=== PATIENT | female | born 1935 | race Caucasian/White ===

== ENCOUNTER → 2016-06-04 | Outpatient (CLI) | payer BC, OTHER ==
[~2016-06-04] MED LIST: AMLO2.5T PO; ASCO10003 PO; ASPI-461 PO; ATOR-14 PO; CALC-393 PO; CHOL200010 PO; CHOL20005 PO; COEN1CAP17 PO; FEXO5TAB2 PO; FURO20TA PO; GLUCTAB7 PO; LEVO125T72 PO; LPR25 PO; MISCCAP80 PO; NRN/300 PO; OMEG12006 PO; OMEP40CA PO; TOLT1TAB17 PO; ZOLP5TAB PO
--- NOTE | 2016-06-04 14:42 | MAMMOGRAPHY REPORT ---
BILATERAL DIGITAL SCREENING MAMMOGRAM WITH CAD: 06/04/2016 CLINICAL HISTORY: Routine screening. Patient has no complaints. TECHNIQUE: Current study was also evaluated with a Computer Aided Detection (CAD) system. Bilatera l CC and MLO views were obtained. COMPARISON: Comparison is made to exams dated: 05/31/2015 mammogram, 05/25/2014 mammogram, 05/24/2013 mammogram, 05/18/2012 mammogram, 05/15/2011 mammogram, and 05/13/2010 mammogram - [facility]. BREAST COMPOSITION: The tissue of both breasts is almost entirely fatty. FINDINGS: No suspicious masses, calcifications, or areas of architectural distortion are noted in e ither breast. There has been no significant interval change compared to prior exams. Nodular asymme try seen within the left medial anterior breast on the cc view is stable dating back to at least the 2010 and 2009 exams, and is considered benign given long-term stability. IMPRESSION: ACR BI-RADS CATEGORY 2: BENIGN There is no mammographic evidence of malignancy. A 1 year screening mammogram is recommended. The p atient will receive written notification of the results. Approximately 10% of breast cancers are not detected with mammography. A negative mammographic repor t should not delay biopsy if a clinically suggestive mass is present. Bre Page M.D. /:06/04/2016 09:31:[address] Interpreter: Mindy Root RT(R)(M), [facility] letter sent: Normal 1/2 BI-RADS Code: ACR BI-RADS Category 2: Benign
== END | disposition home or self-care (01) ==
LOC: C.MAMM 09:02
PROVIDERS: ATTEND Family Medicine
DX: Z12.31 Encounter for screening mammogram for malignant neoplasm of breast (principal)

== ENCOUNTER → 2017-06-08 | Outpatient (CLI) | payer BC, OTHER ==
--- NOTE | 2017-06-09 07:41 | MAMMOGRAPHY REPORT ---
BILATERAL DIGITAL SCREENING MAMMOGRAM TOMOSYNTHESIS WITH CAD: 06/08/2017 CLINICAL HISTORY: Routine screening. Patient has no complaints. TECHNIQUE: Breast tomosynthesis in addition to standard 2D mammography was performed. Current study was also evaluated with a Computer Aided Detection (CAD) system. COMPARISON: Comparison is made to exams dated: 06/04/2016 mammogram, 05/31/2015 mammogram, 05/25/2014 ma mmogram, 05/24/2013 mammogram, 05/18/2012 mammogram, and 05/15/2011 mammogram - [facility]. BREAST COMPOSITION: There are scattered areas of fibroglandular density in both breasts. FINDINGS: The parenchymal pattern is unchanged. No developing mass, architectural distortion or clus ter of suspicious microcalcifications is seen in either breast. IMPRESSION: ACR BI-RADS CATEGORY 2: BENIGN There is no mammographic evidence of malignancy. A 1 year screening mammogram is recommended. The pa tient will receive written notification of the results. Approximately 10% of breast cancers are not detected with mammography. A negative mammographic report should not delay biopsy if a clinically suggestive mass is present. Kaela Mathias M.D. ay/:06/08/2017 14:57:29 Waste Machine Operator: Kelley BALDERAS(Armando)([place]), [facility] letter sent: Normal 1/2 BI-RADS Code: ACR BI-RADS Category 2: Benign
== END | disposition home or self-care (01) ==
LOC: C.MAMM 08:53
PROVIDERS: ATTEND Family Medicine
DX: Z12.31 Encounter for screening mammogram for malignant neoplasm of breast (principal)

== ENCOUNTER → 2017-06-23 | Outpatient (CLI) | payer BC, OTHER | END | disposition home or self-care (01) | LOC: C.MAMM 13:25 | PROVIDERS: ATTEND Family Medicine | DX: M85.80 Other specified disorders of bone density and structure, unspecified site (principal) ==

== ENCOUNTER 2021-09-16 08:32 | Observation (INO) ==
[2021-09-16] MEDS ORDERED: SODIUM CHLORIDE 0.9% 1000ML 1,000 ML IV ONE (08:50)
--- NOTE | 2021-09-16 08:52 | Emergency Department Note ---
Impression & Plan Anaplasmosis, Thrombocytopenia, Leukopenia, Elevated troponin ED Provider Note NAME: CURTIS PADILLA AGE: 86 SEX: F : 1935 ARRIVES VIA: Ambulance INFORMANT: Patient ED PROVIDER(S): Brandon Shaikh DO CHIEF COMPLAINT: Altered mental status HPI: Patient is an 86-year-old female with a past medical history of hyperlipidemia, hypothyroidism, asthma who presents the ER for worsening confusion. She fell 3 days ago was seen and evaluated in the ER and discharged back home. Since then the confusion has been worsening. She is complaining of abdominal pain. Denies any headache or change in vision. No chest pain or shortness of breath. No dysuria, urgency, or frequency. No other exacerbating or remitting factors. Pain is currently a 6 out of 10 in her right mid belly as well as her SI joint per the patient. ROS: See above HPI for pertinent positives & negatives. A total of 10 systems reviewed and were otherwise negative. PAST MEDICAL HISTORY:See Below PAST SURGICAL HISTORY:See Below FAMILY HISTORY:See Below SOCIAL HISTORY:See Below HOME MEDICATIONS:See Below ALLERGIES:See Below VITALS:See Below PHYSICAL EXAMINATION: GENERAL: alert, well appearing, well nourished, no distress, non-toxic HEAD: normal cephalic, atraumatic EYE EXAM: normal conjunctiva, PERRL and EOM's grossly intact OROPHARYNX: no exudate, no erythema, lips, buccal mucosa, and tongue normal and mucous membranes are moist NECK: supple, no nuchal rigidity, no adenopathy, non-tender CHEST: stable to compression anteriorly and posteriorly LUNGS: clear to auscultation. Normal chest wall mechanics HEART: no murmurs, S1 normal and S2 normal ABDOMEN: abdomen soft, non-tender, normo-active bowel sounds, no masses, no rebound or guarding. PELVIS: stable to compression anteriorly and posteriorly BACK: Back is symmetrical on inspection and there is no deformity, no midline tenderness, no CVA tenderness. UPPER EXTREMITIES: full active and passive range of motion of all joints without tenderness to palpation LOWER EXTREMITIES: Flexion-extension bilateral hips knees ankles and EHL intact no tenderness throughout bilateral extremities on palpation NEURO EXAM: Awake alert oriented to person and place but not year intermittently following commands cranial nerves II-XII intact, normal speech, no gross weakness of arms, no gross weakness of legs. GCS: 14. MEDICAL DECISION MAKING: Patient is an 86-year-old female who presents the ER for worsening confusion and weakness. IV was established blood work was obtained. Labs show a leukopenia 2.5. Thrombocytopenia 27. BMP with a creatinine 1.6. Troponin was up at 70. UA was contaminated with multiple epithelial cells. 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 CT abdomen pelvis was unchanged from previous and CT head was negative. Patient was updated bedside. Patient was given IV fluids and IV doxycycline. Admit to hospital for further work-up. Triage Nursing notes reviewed. Limited review of prior medical records performed Vital Signs: reviewed and remarkable for no significant abnormalities Differential diagnosis: Differential diagnoses include major intracranial, cervical, spinal, thoracic, abdominal, pelvic and neurologic injury. Fracture, contusion, sprain, strain, laceration, abrasions included as well. ER treatment provided: See below Diagnostics interpreted by me: ECG: Sinus tachycardia rate of 1 1 Normal axis No PVCs QTC 412 Cardiac Monitoring: An order was placed for continuous cardiac monitoring. The monitor shows a rate of 88 with sinus rhythm. Laboratory studies: As stated above and show below. Imaging studies: CT head was negative CT abdomen pelvis is unremarkable Consultation(s): Discussed with the hospitalist for further evaluation Procedures: none Critical Care: None Past Med/Surg History Medical History (Updated 09/16/21 @ 13:43 by Brandon Shaikh DO) Asthma no inhalers, controlled with allergy shots Borderline diabetes monitoring GERD (gastroesophageal reflux disease) Hyperlipidemia Hypertension Hypothyroidism Osteoarthritis Surgical History History of bilateral tubal ligation History of colonoscopy Family History Mother Gastric cancer Father Hypertension Other No family history of adverse response to anesthesia Denies family history of Chronic kidney disease (CKD) Social History Smoking Status: Unknown if ever smoked Second Hand Exposure: No; Hx Alcohol Use: Yes (social) Alcohol type: wine Hx Substance Use: No Preferred Language: Persian Communication Ability: Effective Apple Picking Supervisor Required: No Beliefs That Will Affect Care: None marital status: Current Living Situation: Spouse Feels Safe at Home: Yes Assistive Devices: Glasses Allergies Allergies Allergy/AdvReac Type Severity Reaction Status Date / Time scallops Allergy Severe Anaphylaxis Verified 09/14/21 23:05 amoxicillin Allergy Unknown GI SYMPTOMS Verified 09/14/21 23:05 clavulanic acid Allergy Unknown GI SYMPTOMS Verified 09/14/21 23:05 Home Meds Home Medications Medication Instructions Recorded Confirmed amlodipine 5 mg tablet 5 mg PO QAM 08/18/19 09/14/21 aspirin 81 mg tablet,delayed 81 mg PO QAM 08/18/19 09/14/21 release (Sandra Low Dose Aspirin) [id number] 1 tab PO DAILY 08/18/19 09/14/21 tablet (Multivitamin 50 Plus) omeprazole 40 mg capsule,delayed 40 mg PO HS 08/18/19 09/14/21 release tolterodine 1 mg tablet (Detrol) 1 mg PO QAM 08/18/19 09/14/21 acetaminophen 325 mg tablet 650 mg PO Q6 PRN Pain 09/16/19 09/14/21 (Tylenol) Previous Rx's Medication Instructions Recorded Lactobacillus 1 cap PO DAILY #90 caps 10/04/18 acidophilus-Bifidobac.animalis 31 billion cell capsule ascorbic acid (vitamin C) 1,000 mg 1 gm PO DAILY #90 tabs 10/04/18 tablet atorvastatin 10 mg tablet 10 mg PO DAILY #90 tabs 10/04/18 coenzyme Q10 100 mg capsule 100 mg PO DAILY #1 cap 10/04/18 glucosamine-chondroitin 500 mg-400 1 tab PO DAILY #90 tabs 10/04/18 mg tablet levothyroxine 125 mcg tablet 125 mcg PO DAILY #90 tabs 10/04/18 metoprolol tartrate 50 mg tablet 50 mg PO DAILY #90 tabs 10/04/18 oxycodone-acetaminophen 5 mg-325 1 tab PO Q4H PRN pain #20 tabs 09/16/19 mg tablet (Percocet) fexofenadine-pseudoephedrine ER 1 tab PO DAILY PRN seasonal 09/26/19 180 mg-240 mg tablet,ext.release allergies #30 tabs 24 hr (Calli-D 24 Hour) Results & Data (ED) Vital Signs Vital Signs - 24 hr 09/16/21 08:40 09/16/21 09:22 09/16/21 08:42 Temperature 36.8 C Temperature Source Oral Pulse Rate 97 H 98 H Pulse Rate from SpO2 Sensor 88 Respiratory Rate 24 23 Respiratory Effort / Characteristics Non-Labored Spontaneous Respiratory Depth Normal Respiratory Pattern Regular Blood Pressure 167/87 H Blood Pressure Mean 113 Blood Pressure Position Sitting Pulse Oximetry 93 95 96 Oxygen Delivery Method Room Air Room Air Room Air Sepsis Recent Fever Within 48 Hours No Sepsis New/Unexplained Change in Mental Status No Sepsis Action Taken by Nursing No Action Required 09/16/21 09:01 09/16/21 09:30 09/16/21 10:00 Temperature Temperature Source Pulse Rate 94 H 90 Pulse Rate from SpO2 Sensor 86 Respiratory Rate 17 26 H Respiratory Effort / Characteristics Respiratory Depth Respiratory Pattern Blood Pressure 141/76 H 153/71 H 142/80 H Blood Pressure Mean 97 98 100 Blood Pressure Position Pulse Oximetry 93 Oxygen Delivery Method Room Air Sepsis Recent Fever Within 48 Hours Sepsis New/Unexplained Change in Mental Status Sepsis Action Taken by Nursing 09/16/21 10:00 09/16/21 11:00 09/16/21 11:00 Temperature Temperature Source Pulse Rate 90 91 H Pulse Rate from SpO2 Sensor 91 H 90 Respiratory Rate 23 24 Respiratory Effort / Characteristics Respiratory Depth Respiratory Pattern Blood Pressure 171/123 H Blood Pressure Mean 139 Blood Pressure Position Pulse Oximetry 97 90 Oxygen Delivery Method Room Air Sepsis Recent Fever Within 48 Hours Sepsis New/Unexplained Change in Mental Status Sepsis Action Taken by Nursing 09/16/21 11:30 09/16/21 12:00 Temperature Temperature Source Pulse Rate 90 94 H Pulse Rate from SpO2 Sensor 90 93 H Respiratory Rate 30 H 21 Respiratory Effort / Characteristics Respiratory Depth Respiratory Pattern Blood Pressure 191/88 H 168/89 H Blood Pressure Mean 122 115 Blood Pressure Position Pulse Oximetry 95 95 Oxygen Delivery Method Room Air Room Air Sepsis Recent Fever Within 48 Hours Sepsis New/Unexplained Change in Mental Status Sepsis Action Taken by Nursing Laboratory Data Result diagrams: 09/16/21 08:50 09/16/21 08:50 Lab Results 09/16/21 09/16/21 09/16/21 Range/Units 08:50 08:50 08:59 WBC 2.53 L (4.8-10.8) K/ul RBC 4.94 (3.93-5.22) M/uL Hgb 14.1 (12.0-16.0) g/dl Hct 42.2 (34.1-44.9) % MCV 85.4 (80.0-100.0) fL MCH 28.5 (25.0-34.0) pg MCHC 33.4 (32.0-36.0) g/dL RDW Std Deviation 43.3 (36.4-46.3) fL RDW Coeff of Veronica 13.9 (11.5-14.5) % Plt Count 27 L* (130-400) K/uL MPV 13.2 H (9.4-12.3) fL Immature Gran % (Auto) 0.4 % Neut % (Auto) 85.4 % Lymph % (Auto) 7.5 % [place] % (Auto) 6.3 % Eos % (Auto) 0.0 % Baso % (Auto) 0.4 % Neut # (Auto) 2.16 (1.4-6.5) K/uL Lymph # (Auto) 0.19 L (1.2-3.4) K/uL [place] # (Auto) 0.16 L (0.24-0.82) K/uL Eos # (Auto) 0.00 (0-0.50) K/uL Baso # (Auto) 0.01 (0-0.2) K/uL Immature Gran # (Auto) 0.01 (0.00-0.02) K/uL Toxic Vacuolation 2+ Platelet Estimate Signific. Decreased L (Normal) Peripher Smr Path Cons Sodium 138 (136-145) mmol/L Potassium 3.8 (3.5-5.1) mmol/L Chloride 100 (98-107) mmol/L Carbon Dioxide 28 (21-32) mmol/L Anion Gap 10 (3-11) BUN 34 H (6-23) mg/dl Creatinine 1.30 H (0.6-1.2) mg/dl Est Cr Clr Drug Dosing Not Reportable Est GFR ( Amer) 43.3 ml/min Est GFR (Non-Af Amer) 37.4 ml/min BUN/Creatinine Ratio 26.2 H (10-20) Glucose 131 H (70-99(Fasting)) mg/dl Calcium 8.5 (8.5-10.1) mg/dl Total Bilirubin 0.9 (0.2-1.0) mg/dl AST 99 H (13-39) U/L ALT 42 (7-52) U/L Alkaline Phosphatase 37 (34-104) U/L Troponin I High Sens 70.8 H* (0-14) pg/ml Total Protein 7.1 (6.0-8.3) gm/dl Albumin 3.6 (3.4-5.0) gm/dl Globulin 3.5 (2.5-4.0) gm/dl Albumin/Globulin Ratio 1.0 (0.9-2) Lipase 24 (11-82) U/L Urine Color Dark Yellow Urine Appearance Cloudy A (Clear) Urine pH 5.5 (4.5-7.5) Ur Specific [place] 1.019 (1.000-1.030) Urine Protein 2+ H (Negative) Urine Glucose (UA) Negative (Negative) Urine Ketones Negative (Negative) Urine Blood 2+ H (Negative) Urine Nitrite Negative (Negative) Urine Bilirubin Negative (Negative) Urine Urobilinogen Negative (Negative) Ur Leukocyte Esterase Negative (Negative) Urine WBC (Auto) 5-10 H (0-5) /hpf Urine RBC (Auto) 0-4 (0-4) /hpf U Hyaline Cast (Auto) 0 (0-5) /lpf U Epithel Cells (Auto) >30 H (0-5) /lpf Urine Bacteria (Auto) 3+ H (Negative) Granular Casts 1-5 H (0) /lpf Anaplasma Smear See Comment A Anaplasma Comment Pos for Anaplasma SARS-CoV-2, RNA, NAAT (NEGATIVE) 09/16/21 Range/Units 09:07 WBC (4.8-10.8) K/ul RBC (3.93-5.22) M/uL Hgb (12.0-16.0) g/dl Hct (34.1-44.9) % MCV (80.0-100.0) fL MCH (25.0-34.0) pg MCHC (32.0-36.0) g/dL RDW Std Deviation (36.4-46.3) fL RDW Coeff of Veronica (11.5-14.5) % Plt Count (130-400) K/uL MPV (9.4-12.3) fL Immature Gran % (Auto) % Neut % (Auto) % Lymph % (Auto) % [place] % (Auto) % Eos % (Auto) % Baso % (Auto) % Neut # (Auto) (1.4-6.5) K/uL Lymph # (Auto) (1.2-3.4) K/uL [place] # (Auto) (0.24-0.82) K/uL Eos # (Auto) (0-0.50) K/uL Baso # (Auto) (0-0.2) K/uL Immature Gran # (Auto) (0.00-0.02) K/uL Toxic Vacuolation Platelet Estimate (Normal) Peripher Smr Path Cons Sodium (136-145) mmol/L Potassium (3.5-5.1) mmol/L Chloride (98-107) mmol/L Carbon Dioxide (21-32) mmol/L Anion Gap (3-11) BUN (6-23) mg/dl Creatinine (0.6-1.2) mg/dl Est Cr Clr Drug Dosing Est GFR ( Amer) ml/min Est GFR (Non-Af Amer) ml/min BUN/Creatinine Ratio (10-20) Glucose (70-99(Fasting)) mg/dl Calcium (8.5-10.1) mg/dl Total Bilirubin (0.2-1.0) mg/dl AST (13-39) U/L ALT (7-52) U/L Alkaline Phosphatase (34-104) U/L Troponin I High Sens (0-14) pg/ml Total Protein (6.0-8.3) gm/dl Albumin (3.4-5.0) gm/dl Globulin (2.5-4.0) gm/dl Albumin/Globulin Ratio (0.9-2) Lipase (11-82) U/L Urine Color Urine Appearance (Clear) Urine pH (4.5-7.5) Ur Specific [place] (1.000-1.030) Urine Protein (Negative) Urine Glucose (UA) (Negative) Urine Ketones (Negative) Urine Blood (Negative) Urine Nitrite (Negative) Urine Bilirubin (Negative) Urine Urobilinogen (Negative) Ur Leukocyte Esterase (Negative) Urine WBC (Auto) (0-5) /hpf Urine RBC (Auto) (0-4) /hpf U Hyaline Cast (Auto) (0-5) /lpf U Epithel Cells (Auto) (0-5) /lpf Urine Bacteria (Auto) (Negative) Granular Casts (0) /lpf Anaplasma Smear Anaplasma Comment SARS-CoV-2, RNA, NAAT NEGATIVE (NEGATIVE) Administered Medications Discontinued Medications Sodium Chloride (Nss 1000ml) 1,000 mls @ 999 mls/hr IV .Q1H1M ONE Stop: 09/16/21 09:50 Last Infusion: 09/16/21 10:30 Dose: 0 mls/hr Documented By: [facility] Admin: 09/16/21 09:23 Dose: 999 mls/hr Documented By: [facility] Doxycycline Hyclate 100 mg/ (Dextrose) 110 mls @ 50 mls/hr IV NOW STA Stop: 09/16/21 13:03 Last Admin: 09/16/21 11:33 Dose: 50 mls/hr Documented By: [facility] Ioversol (Optiray 320 100ml) 94 ml IV ONCE ONE Stop: 09/16/21 10:30 Last Admin: 09/16/21 10:29 Dose: 94 ml Documented By: LEONIDAS Imaging Data Radiologist's Impression: Abdomen/Pelvis CT 09/16/21 08:50 CT abd pelvis IV con only CLINICAL HISTORY: abd pain sp fall TECHNIQUE: Helical axial images of the abdomen and pelvis were obtained and di splayed. Automated dose lowering techniques and/or adjustment according to patient size were utilized for this exam. This exam was performed with intravenous contrast. CT DOSE: 915.92 mGy.cm COMPARISON: Comparison is made to CT abdomen pelvis 09/14/2021 FINDINGS: Lower chest: No acute abnormality Liver: Unremarkable. No focal lesions are seen. Gallbladder and biliary tree: Cholelithiasis is seen without evidence of cholecystitis. No intra- or extrahepatic biliary ductal dilation. Pancreas: Unremarkable, no focal lesions. Spleen: Unremarkable. Adrenals: Unremarkable. Kidneys and ureters: Previously noted renal cysts are stable. Subcentimeter hypodensities are unchanged and too small to characterize. Bladder: Unremarkable. Reproductive organs: Unremarkable. Bowel: Diverticulosis is seen without evidence of diverticulitis. The appendix is normal. Lymph nodes Retroperitoneal: Unremarkable. Mesenteric: Unremarkable. Pelvic: Unremarkable. Peritoneum: Normal. Vessels: Atherosclerotic calcifications are seen. Abdominal wall: Unremarkable. Bones: Previously noted inferior sacral fracture is again seen. Degenerative changes are seen in the spine. IMPRESSION: 1. Redemonstration of previously noted inferior sacral fracture. No new fractures are seen. 2. Cholelithiasis without cholecystitis. 3. Diverticulosis without diverticulitis. Additional findings as above. ACT 112: Negative or not required by law. Electronically signed by: Vikash Pablo M.D. 09/16/2021 10:[address] 09/16/21 08:[address] DOSE: HISTORY: Altered mental status. TECHNIQUE: Multiaxial CT images of the head were performed without the use of intravenous contrast. Automated exposure control was utilized for this study. A dose lowering technique was utilized adhering to the principles of ALARA. Comparison: Head CT 10/12/2014. Findings: The paranasal sinuses and mastoid air cells are clear. The calvarium and skull base are intact. There is no mass, hematoma, midline shift, acute infarct. White matter hypodensity is nonspecific but suggestive of microvascular ischemic change. The ventricles and sulci demonstrate mild age-related involuti onal changes. Impression: No acute intracranial abnormality. Atrophy and microvascular ischemic changes. ACT 112: Negative or not required by law. Electronically signed by: Peter Munguia M.D. 09/16/2021 10:38 AM Discharge Plan Visit Data Chief Complaint: Altered Mental Status ED Provider: Brandon Shaikh Discharge Problem: Anaplasmosis, Thrombocytopenia, Leukopenia, Elevated troponin Forms Stand Alone Forms: My [facility] zlien Prescriptions Prescriptions: No Action ascorbic acid (vitamin C) 1,000 mg tablet 1 gm PO DAILY Qty: 90 0RF atorvastatin 10 mg tablet 10 mg PO DAILY Qty: 90 0RF Rx Instructions: qam coenzyme Q10 100 mg capsule 100 mg PO DAILY Qty: 1 0RF glucosamine-chondroitin 500-400 mg tablet 1 tab PO DAILY Qty: 90 0RF Lacto.acidophilus-Bif.animalis 31 billion cell capsule 1 cap PO DAILY Qty: 90 0RF levothyroxine 125 mcg tablet 125 mcg PO DAILY Qty: 90 0RF Rx Instructions: qam metoprolol tartrate 50 mg tablet 50 mg PO DAILY Qty: 90 0RF Rx Instructions: qam Calli-D 24 Hour 180-240 mg tablet extended release 24 hr 1 tab PO DAILY PRN (Reason: seasonal allergies) Qty: 30 6RF amlodipine 5 mg Tablet 5 mg PO QAM aspirin [Sandra Low Dose Aspirin] 81 mg Tablet,Delayed Release (Dr/Ec) 81 mg PO QAM Multivitamin 50 Plus Tablet 1 tab PO DAILY tolterodine [Detrol] 1 mg tablet 1 mg PO QAM omeprazole 40 mg capsule,delayed release(DR/EC) 40 mg PO HS acetaminophen [Tylenol] 325 mg Tablet 650 mg PO Q6 PRN (Reason: Pain) oxycodone-acetaminophen [Percocet] 5-325 mg tablet 1 tab PO Q4H PRN (Reason: pain) Qty: 20 0RF Referrals Referrals: Sen Hammond [Primary Care Provider] -
[2021-09-16 09:37] LABS: Appearance Urine Cloudy (Clear); Bilirubin Urine Negative (Negative); Blood Urine 2+ (Negative); Color Urine Dark Yellow; Epithelial Cell Urine Auto >30 /lpf (0-5); Glucose Urine UA Negative (Negative); Ketones Urine Negative (Negative); Leukocyte Esterase Urine Negative (Negative); Nitrite Urine Negative (Negative); Protein Urine 2+ (Negative); Specific Gravity Urine 1.019 (1.000-1.030); Urobilinogen Urine Negative (Negative); pH Urine 5.5 (4.5-7.5)
[2021-09-16 09:52] LABS: Alanine Aminotransferase 42 U/L (7-52); Albumin Level 3.6 gm/dl (3.4-5.0); Alkaline Phosphatase 37 U/L (34-104); Anion Gap 10 (3-11); Aspartate Aminotransferase 99 U/L (13-39); BUN Creatinine Ratio 26.2 (10-20); Bilirubin,Total 0.9 mg/dl (0.2-1.0); Blood Urea Nitrogen 34 mg/dl (6-23); Calcium 8.5 mg/dl (8.5-10.1); Carbon Dioxide 28 mmol/L (21-32); Chloride 100 mmol/L (98-107); Est GFR (African American) 43.3 ml/min; Est GFR (Non-African American) 37.4 ml/min; Globulin 3.5 gm/dl (2.5-4.0); Glucose 131 mg/dl (70-99(Fasting)); Lipase 24 U/L (11-82); Potassium 3.8 mmol/L (3.5-5.1); Sodium 138 mmol/L (136-145); Total Protein 7.1 gm/dl (6.0-8.3)
[2021-09-16 09:53] LABS: Cast Urine Automated 0 /lpf (0-5)
[2021-09-16 09:54] LABS: Bacteria Urine Automated 3+ (Negative); RBC Urine Automated 0-4 /hpf (0-4)
[2021-09-16 09:56] LABS: Troponin I High Sensitivity 70.8 pg/ml (0-14)
[2021-09-16 10:20] LABS: Hematocrit (blood only) 42.2 % (34.1-44.9); Hemoglobin 14.1 g/dl (12.0-16.0); Mean Corpuscular Hemoglobin 28.5 pg (25.0-34.0); Mean Corpuscular Hgb Conc 33.4 g/dL (32.0-36.0); Mean Corpuscular Volume 85.4 fL (80.0-100.0); Mean Platelet Volume 13.2 fL (9.4-12.3); Platelet Count 27 K/uL (130-400); RDW Coefficient of Variation 13.9 % (11.5-14.5); RDW Standard Deviation 43.3 fL (36.4-46.3); Red Blood Count 4.94 M/uL (3.93-5.22); White Blood Count 2.53 K/ul (4.8-10.8)
[2021-09-16 10:22] LABS: Basophils # (auto) 0.01 K/uL (0-0.2); Basophils % (auto) 0.4 %; Immature Granulocytes # (auto) 0.01 K/uL (0.00-0.02); Immature Granulocytes % (auto) 0.4 %; Lymphocytes # (auto) 0.19 K/uL (1.2-3.4); Lymphocytes % (auto) 7.5 %; Monocytes # (auto) 0.16 K/uL (0.24-0.82); Monocytes % (auto) 6.3 %; Neutrophils # (auto) 2.16 K/uL (1.4-6.5); Neutrophils % (auto) 85.4 %; Platelet Estimate Signific. Decreased (Normal); Toxic Vacuolation 2+
[2021-09-16] MEDS ORDERED: OPTIRAY 320 100ml IV ONE (10:29)
[2021-09-16 10:30] LABS: Anaplasmosis Smear(Rpt to DOH) Pos for Anaplasma
--- NOTE | 2021-09-16 10:40 | CT Scan Report ---
HEAD CT NONCONTRAST CT DOSE: HISTORY: Altered mental status. TECHNIQUE: Multiaxial CT images of the head were performed without the use of intravenous contrast. A utomated exposure control was utilized for this study. A dose lowering technique was utilized adheri ng to the principles of ALARA. Comparison: Head CT 10/12/2014. Findings: The paranasal sinuses and mastoid air cells are clear. The calvarium and skull base are int act. There is no mass, hematoma, midline shift, acute infarct. White matter hypodensity is nonspecifi c but suggestive of microvascular ischemic change. The ventricles and sulci demonstrate mild age-rela inderjit involutional changes. Impression: No acute intracranial abnormality. Atrophy and microvascular ischemic changes. ACT 112: Negative or not required by law. Electronically signed by: Peter Munguia M.D. 09/16/2021 10:38 AM
[2021-09-16] MEDS ORDERED: DOXYCYCLINE HYCLATE 100 MG in DEXTROSE 5% 100 ML IV STA (10:52)
--- NOTE | 2021-09-16 10:57 | CT Scan Report ---
CT abd pelvis IV con only CLINICAL HISTORY: abd pain sp fall TECHNIQUE: Helical axial images of the abdomen and pelvis were obtained and displayed. Automated dose lowering techniques and/or adjustment according to patient size were utilized for this exam. This e xam was performed with intravenous contrast. CT DOSE: 915.92 mGy.cm COMPARISON: Comparison is made to CT abdomen pelvis 09/14/2021 FINDINGS: Lower chest: No acute abnormality Liver: Unremarkable. No focal lesions are seen. Gallbladder and biliary tree: Cholelithiasis is seen without evidence of cholecystitis. No intra- or extrahepatic biliary ductal dilation. Pancreas: Unremarkable, no focal lesions. Spleen: Unremarkable. Adrenals: Unremarkable. Kidneys and ureters: Previously noted renal cysts are stable. Subcentimeter hypodensities are unchang ed and too small to characterize. Bladder: Unremarkable. Reproductive organs: Unremarkable. Bowel: Diverticulosis is seen without evidence of diverticulitis. The appendix is normal. Lymph nodes Retroperitoneal: Unremarkable. Mesenteric: Unremarkable. Pelvic: Unremarkable. Peritoneum: Normal. Vessels: Atherosclerotic calcifications are seen. Abdominal wall: Unremarkable. Bones: Previously noted inferior sacral fracture is again seen. Degenerative changes are seen in the spine. IMPRESSION: 1. Redemonstration of previously noted inferior sacral fracture. No new fractures are seen. 2. Cholelithiasis without cholecystitis. 3. Diverticulosis without diverticulitis. Additional findings as above. ACT 112: Negative or not required by law. Electronically signed by: Vikash Pablo M.D. 09/16/2021 10:55 AM
--- NOTE | 2021-09-16 11:51 | History & Physical Report ---
Date of Service September 16, 2021 Assessment & Plan (1) Anaplasmosis: Plan: - With thrombocytopenia, leukopenia. - IV doxycycline 10 mg BID. - Continue to follow PLT and WBCs on daily CBC. (2) NIRU (acute kidney injury): Plan: - Likely secondary to dehydration as pt's PO intake reportedly has been low for some time. Has not been using NSAIDs for pain. - Maintenance IVF NS 100 cc/hr - Avoid nephrotoxins, renally dose meds as able. - Baseline Cr .95, GFR ~50 (3) Encephalopathy: Plan: - Head CT and CT A/P without acute findings. - Likely in setting of infection, although suspect there may be some underlying degree of dementia. - Monitor response to antibiotics and IVF. - PT and OT to evaluate patient in AM. (4) Elevated troponin: Plan: - hs Trop 70, EKG with tachycardia and PVCs, no ST segment or T wave changes. Without chest pain. - Continue to trend troponin. (5) Low back pain: Plan: - Inferior sacral fracture on 09/14 - Continue to treat with lidocaine patches, Tylenol. Avoid NSAIDs due to NRIU. (6) Thrombocytopenia: Plan: - Likely due to #1, follow on AM labs. (7) Leukopenia: Plan: - Likely due to #1, follow on AM labs. (8) Essential hypertension: Plan: - Continue amlodipine and metoprolol. (9) Hypercholesterolemia: Plan: - Continue statin. (10) Hypothyroidism: Plan: - Continue levothyroxine. Plan - Admit to med/tele. - SCDs for VTE ppx. - Full Code. History of Present Illness Chief Complaint: confusion, decreased appetite x 3 days Primary Care Provider: Sen Hammond Devora Rivera is an 86 y/o female with a PMH of hypertension, hypothyroidism, hyperlipidemia, GERD, and osteoarthritis who presents today with confusion, History is obtained from family at bedside. Patient has been increasingly more confused over the last week or so and suffered a ground level fall two days ago, for which she was seen in the ED for no 09/14 and diagnosed with an inferior sacral fracture. Since then, she has become more confused, not eating or drinking much, and was found by family today hunched over her bed saturated in urine. She complains of some mild abdominal pain, but is otherwise without complaints. In ED, she is hypertensive but VS otherwise wnl, stable. Labs signifcant for WBC 2.53, PLT 27, smear positive for anaplasmosis. Her BUN is also elevated at 34, Cr 1.30, trop 70.8, UA w/ > 30 epi cells, 5-10 WBCs, 3+ bacteria, granular casts, blood, and protein. Allergies Allergy/AdvReac Type Severity Reaction Status Date / Time scallops Allergy Severe Anaphylaxis Verified 09/16/21 15:20 amoxicillin Allergy Unknown GI SYMPTOMS Verified 09/16/21 15:20 clavulanic acid Allergy Unknown GI SYMPTOMS Verified 09/16/21 15:20 Home Medications Medication Instructions Recorded Confirmed Type Lactobacillus 1 cap PO DAILY #90 caps 10/04/18 09/16/21 Rx acidophilus-Bifidobac.animalis 31 billion cell capsule ascorbic acid (vitamin C) 1,000 mg 1 gm PO DAILY #90 tabs 10/04/18 09/16/21 Rx tablet atorvastatin 10 mg tablet 10 mg PO DAILY #90 tabs 10/04/18 09/16/21 Rx coenzyme Q10 100 mg capsule 100 mg PO DAILY #1 cap 10/04/18 09/16/21 Rx glucosamine-chondroitin 500 mg-400 1 tab PO DAILY #90 tabs 10/04/18 09/16/21 Rx mg tablet levothyroxine 125 mcg tablet 125 mcg PO DAILY #90 tabs 10/04/18 09/16/21 Rx metoprolol tartrate 50 mg tablet 50 mg PO DAILY #90 tabs 10/04/18 09/16/21 Rx amlodipine 5 mg tablet 5 mg PO QAM 08/18/19 09/16/21 History aspirin 81 mg tablet,delayed 81 mg PO QAM 08/18/19 09/16/21 History release (Sandra Low Dose Aspirin) vynasfimsvkf-zjjgocpq-ymvltj 1 tab PO DAILY 08/18/19 09/16/21 History tablet (Multivitamin 50 Plus) omeprazole 40 mg capsule,delayed 40 mg PO HS 08/18/19 09/16/21 History release tolterodine 1 mg tablet (Detrol) 1 mg PO QAM 08/18/19 09/16/21 History acetaminophen 325 mg tablet 650 mg PO Q6 PRN Pain 09/16/19 09/16/21 History (Tylenol) fexofenadine-pseudoephedrine ER 1 tab PO DAILY PRN seasonal 09/26/19 09/16/21 Rx 180 mg-240 mg tablet,ext.release allergies #30 tabs 24 hr (Calli-D 24 Hour) turmeric root extract 500 mg tablet 500 mg PO DAILY 09/16/21 09/16/21 History Past Med/Surg History Medical History (Updated 09/16/21 @ 13:43 by Brandon Shaikh DO) Asthma no inhalers, controlled with allergy shots Borderline diabetes monitoring GERD (gastroesophageal reflux disease) Hyperlipidemia Hypertension Hypothyroidism Osteoarthritis Surgical History History of bilateral tubal ligation History of colonoscopy Family History Mother Gastric cancer Father Hypertension Other No family history of adverse response to anesthesia Denies family history of Chronic kidney disease (CKD) Social History Smoking Status: Never smoker Second Hand Exposure: No; Hx Alcohol Use: Yes Alcohol type: wine Hx Substance Use: No Preferred Language: Brazilian Communication Ability: Effective Vamp Throater Required: No Beliefs That Will Affect Care: None marital status: Current Living Situation: Spouse Current Living Situation Comment: Home with spouse Other Information That Helps Us Care for You: No Feels Safe at Home: Yes Safety Concerns: Feels Safe At This Time Assistive Devices: Glasses Review of Systems Review of Systems: Constitutional: No fever/chills, weakness, fatigue, myalgias, anorexia, night sweats Eyes: No diplopia, no worsening or blurred vision ENT: normal hearing, no trouble swallowing Respiratory: No cough, sputum, dyspnea at rest or on exertion Cardiovascular: No chest pain, tightness or palpitations Abdomen: with abdominal pain; No nausea, vomiting, diarrhea or constipation : Denies dysuria, hematuria, increased urgency/frequency, urinary retention Musculoskeletal: No joint pain, calf pain, swelling Neurologic: No weakness, numbness/tingling, or balance problems Psychiatric: No anxiety or depression Skin: No rash or itch Physical Exam Physical Exam: General: awake, alert, no apparent distress Head: Normocephalic, atraumatic ENT: PERRL, EOMI, no pharyngeal exudate, mucous membranes moist Chest: Clear to auscultation, on room air, no adventitious breath sounds Cardiac: Regular rate and rhythm, no murmur, no JVD, normal peripheral pulses, good capillary refill Abdominal: TTP in lower abdomen; NABS x 4 quadrants, soft, no rebound, guarding or tenderness Extremities: Normal inspection, no peripheral edema or erythema, calfs nontender to palpation Psych: Normal mood and affect Neuro: AAO x 3, strength intact bilaterally and rated 5/5, no motor deficits, speech is clear, no peripheral sensory deficits Skin: no rash or erythema Results & Data Results & Data ([facility]) Vital Signs (Past 12 Hours) Vital Signs Temp Pulse Resp BP Pulse Ox O2 Del Method 09/16/21 11:00 91 H 24 90 Room Air 09/16/21 10:00 90 23 97 09/16/21 10:00 142/80 H 09/16/21 09:30 90 26 H 153/71 H 93 Room Air 09/16/21 09:01 94 H 17 141/76 H 09/16/21 08:42 98 H 23 96 Room Air 09/16/21 09:22 95 Room Air 09/16/21 08:40 36.8 C 97 H 24 167/87 H 93 Room Air Laboratory Results Abnormal lab results 09/16/21 09/16/21 09/16/21 Range/Units 08:50 08:50 08:59 WBC 2.53 L (4.8-10.8) K/ul Plt Count 27 L* (130-400) K/uL MPV 13.2 H (9.4-12.3) fL Lymph # (Auto) 0.19 L (1.2-3.4) K/uL [place] # (Auto) 0.16 L (0.24-0.82) K/uL Platelet Estimate Signific. Decreased L (Normal) BUN 34 H (6-23) mg/dl Creatinine 1.30 H (0.6-1.2) mg/dl BUN/Creatinine Ratio 26.2 H (10-20) Glucose 131 H (70-99(Fasting)) mg/dl AST 99 H (13-39) U/L Troponin I High Sens 70.8 H* (0-14) pg/ml Urine Appearance Cloudy A (Clear) Urine Protein 2+ H (Negative) Urine Blood 2+ H (Negative) Urine WBC (Auto) 5-10 H (0-5) /hpf U Epithel Cells (Auto) >30 H (0-5) /lpf Urine Bacteria (Auto) 3+ H (Negative) Granular Casts 1-5 H (0) /lpf Anaplasma Smear See Comment A Diagnostic Findings Abdomen/Pelvis CT 09/16/21 08:50 CT abd pelvis IV con only CLINICAL HISTORY: abd pain sp fall TECHNIQUE: Helical axial images of the abdomen and pelvis were obtained and displayed. Automated dose lowering techniques and/or adjustment according to patient size were utilized for this exam. This exam was performed with intravenous contrast. CT DOSE: 915.92 mGy.cm COMPARISON: Comparison is made to CT abdomen pelvis 09/14/2021 FINDINGS: Lower chest: No acute abnormality Liver: Unremarkable. No focal lesions are seen. Gallbladder and biliary tree: Cholelithiasis is seen without evidence of cholecystitis. No intra- or extrahepatic biliary ductal dilation. Pancreas: Unremarkable, no focal lesions. Spleen: Unremarkable. Adrenals: Unremarkable. Kidneys and ureters: Previously noted renal cysts are stable. Subcentimeter hypodensities are unchanged and too small to characterize. Bladder: Unremarkable. Reproductive organs: Unremarkable. Bowel: Diverticulosis is seen without evidence of diverticulitis. The appendix is normal. Lymph nodes Retroperitoneal: Unremarkable. Mesenteric: Unremarkable. Pelvic: Unremarkable. Peritoneum: Normal. Vessels: Atherosclerotic calcifications are seen. Abdominal wall: Unremarkable. Bones: Previously noted inferior sacral fracture is again seen. Degenerative changes are seen in the spine. IMPRESSION: 1. Redemonstration of previously noted inferior sacral fracture. No new fractures are seen. 2. Cholelithiasis without cholecystitis. 3. Diverticulosis without diverticulitis. Additional findings as above. ACT 112: Negative or not required by law. Electronically signed by: Vikash Pablo M.D. 09/16/2021 10:[address] 09/16/21 08:[address] DOSE: HISTORY: Altered mental status. TECHNIQUE: Multiaxial CT images of the head were performed without the use of intravenous contrast. Automated exposure control was utilized for this study. A dose lowering technique was utilized adhering to the principles of ALARA. Comparison: Head CT 10/12/2014. Findings: The paranasal sinuses and mastoid air cells are clear. The calvarium and skull base are intact. There is no mass, hematoma, midline shift, acute infarct. White matter hypodensity is nonspecific but suggestive of microvascular ischemic change. The ventricles and sulci demonstrate mild age-related involutional changes. Impression: No acute intracranial abnormality. Atrophy and microvascular ischemic changes. ACT 112: Negative or not required by law. Electronically signed by: Peter Munguia M.D. 09/16/2021 10:38 AM Code Status & VTE Plan Code Status Full Code. VTE Prophylaxis Plan VTE Prophylaxis will be ordered: Yes Supervising Physician Co-Signing Physician Notes Patient seen and examined with JASPAL, agree with her note above. Patient is accompanied by her family, cannot provide much history. Family states that she has been getting increasingly weak and more confused. They have noted decreased appetite as well. Exam reveals dry mucous membranes, heart is regular rate with no murmurs, lungs are clear to auscultation, remainder exam is as noted above. Laboratory work notes significant thrombocytopenia which is new. Patient had inclusion bodies characteristic anaplasmosis. Plan to gently hydrate, monitor renal function. Doxycycline IV already ordered, continue minimum of 7 days. PT/OT evaluation. Mechanical DVT prophylaxis only while patient has low platelets. PG Care Time/CCT Total # of Minutes Spent Total Time Spent with Patient: Total time spent is greater than 50% in coordination of care (as documented) at patient's floor/unit and/or counseling patient: Coding Level of Care Code 71251 Initial Inpt Care Lvl 3 Diagnoses Anaplasmosis A77.49 NIRU (acute kidney injury) N17.9 Encephalopathy G93.40 Elevated troponin R77.8 Low back pain M54.50 Back pain laterality: midline Chronicity: acute Sciatica presence: without sciatica Thrombocytopenia D69.6 Leukopenia D72.819 Essential hypertension I10 Hypercholesterolemia E78.00 Hypothyroidism E03.9 (1) Low back pain Back pain laterality: midline Chronicity: acute Sciatica presence: without sciatica Qualified Code(s): M54.50 - Low back pain, unspecified
--- NOTE | 2021-09-16 12:58 | Electrocardiogram Report ---
Test Reason : Blood Pressure : / mmHG Vent. Rate : 101 BPM Atrial Rate : 101 BPM P-R Int : 140 ms QRS Dur : 076 ms QT Int : 318 ms P-R-T Axes : 069 033 058 degrees QTc Int : 412 ms Sinus tachycardia with Premature supraventricular complexes Otherwise normal ECG When compared with ECG of 14-SEP-2021 22:34, Premature supraventricular complexes are now Present Confirmed by Franklin Baker ([id number]) on 09/16/2021 12:57:43 PM Referred By: Confirmed By:Franklin Baker
[2021-09-16] MEDS ORDERED: ONDANSETRON INJ 2 MG/ML 2 ML VIAL IV PRN (14:36)
[2021-09-16] MEDS ORDERED: ACETAMINOPHEN 325 MG TAB PO PRN (14:36)
[2021-09-16] MEDS: SODIUM CHLORIDE 0.9% 1000ML 1,000 ML IV SCH (14:59)
[2021-09-16] MEDS: PANTOprazole 40 MG TAB PO SCH (20:15)
[2021-09-17] MEDS: DOXYCYCLINE HYCLATE 100 MG in DEXTROSE 5% 100 ML IV SCH ×2 (00:08→11:17)
[2021-09-17] MEDS: SODIUM CHLORIDE 0.9% 1000ML 1,000 ML IV SCH ×3 (00:32→22:43)
[2021-09-17] MEDS: LEVOTHYROXINE SODIUM 125 MCG TABLET PO SCH (05:23)
[2021-09-17 07:15] LABS: Hematocrit (blood only) 38.3 % (34.1-44.9); Hemoglobin 12.9 g/dl (12.0-16.0); Mean Corpuscular Hemoglobin 28.4 pg (25.0-34.0); Mean Corpuscular Hgb Conc 33.7 g/dL (32.0-36.0); Mean Corpuscular Volume 84.4 fL (80.0-100.0); Mean Platelet Volume 13.4 fL (9.4-12.3); Platelet Count 22 K/uL (130-400); RDW Coefficient of Variation 13.9 % (11.5-14.5); RDW Standard Deviation 43.1 fL (36.4-46.3); Red Blood Count 4.54 M/uL (3.93-5.22); White Blood Count 2.42 K/ul (4.8-10.8)
[2021-09-17 07:28] LABS: Troponin I High Sensitivity 47.7 pg/ml (0-14)
[2021-09-17 07:39] LABS: Albumin Level 2.9 gm/dl (3.4-5.0); BUN Creatinine Ratio 38.5 (10-20); Bilirubin,Total 0.7 mg/dl (0.2-1.0); Calcium 8.1 mg/dl (8.5-10.1); Creatinine Clr Calc Pharmacy 42.8 ml/min; Est GFR (African American) 66.7 ml/min; Est GFR (Non-African American) 57.5 ml/min; Magnesium 1.8 mg/dl (1.7-2.4); Potassium 3.4 mmol/L (3.5-5.1); Total Protein 5.9 gm/dl (6.0-8.3)
[2021-09-17 07:47] LABS: Basophils # (auto) 0.02 K/uL (0-0.2); Basophils % (auto) 0.8 %; Eosinophils # (auto) 0.01 K/uL (0-0.50); Eosinophils % (auto) 0.4 %; Immature Granulocytes # (auto) 0.02 K/uL (0.00-0.02); Immature Granulocytes % (auto) 0.8 %; Lymphocytes # (auto) 0.84 K/uL (1.2-3.4); Lymphocytes % (auto) 34.7 %; Monocytes # (auto) 0.28 K/uL (0.24-0.82); Monocytes % (auto) 11.6 %; Neutrophils # (auto) 1.25 K/uL (1.4-6.5); Neutrophils % (auto) 51.7 %; Toxic Vacuolation 1+
--- NOTE | 2021-09-17 07:49 | Hospitalist Progress Note ---
Date of Service September 17, 2021 Assessment & Plan (1) Anaplasmosis: Plan: 86 y/o female with a PMH of hypertension, hypothyroidism, hyperlipidemia, GERD, and osteoarthritis who presents with confusion (1) Anaplasmosis: - With thrombocytopenia, leukopenia. - IV doxycycline 100 mg BID. transition to oral when tolerated - Continue to follow PLT and WBCs on daily CBC. (2) NIRU (acute kidney injury): - Likely secondary to dehydration as pt's PO intake reportedly has been low for some time. Has not been using NSAIDs for pain. - Maintenance IVF NS 100 cc/hr - Avoid nephrotoxins, renally dose meds as able. - Baseline Cr .95, GFR ~50 (3) Encephalopathy: - Head CT and CT A/P without acute findings. - Likely in setting of infection, although suspect there may be some underlying degree of dementia. - Monitor response to antibiotics and IVF. - PT and OT ordered (4) Elevated troponin: - hs Trop 70, EKG with tachycardia and PVCs, no ST segment or T wave changes. Without chest pain. Downtrending (5) Low back pain: - Inferior sacral fracture on 09/14 - Continue to treat with lidocaine patches, Tylenol. Avoid NSAIDs due to NIRU. (6) Thrombocytopenia: - Likely due to #1, follow labs. (7) Leukopenia: - Likely due to #1, follow labs. (8) Essential hypertension: - Continue amlodipine and metoprolol. (9) Hypercholesterolemia: - Continue statin. (10) Hypothyroidism: - Continue levothyroxine. Plan - Admit to med/tele. - SCDs for VTE ppx. - Full Code. (2) NIRU (acute kidney injury): (3) Encephalopathy: (4) Hypothyroidism: (5) Hypercholesterolemia: Admission and Anticipated Discharge Date Admission Date: September 16, 2021 Supervising Physician Co-Signing Physician Notes I personally examined the patient and verified all rhodes points of history and exam, discussed case, and agree with decision making with Dr Tai feeling better. notes that she's back to baseline mentally vitals noted nad heent nc at mmm breathing unlabored no accessory muscles good effort skin no rashes no pallor or icterus neuro no focal deficits. pleasant but confused anaplasmosis - encephalopathy seems to have resolved - back to baseline. continue doxy. PT/OT. hopefully home vs less likely rehab w further improvement. otherwise as above Subjective Patient seen at bedside calm comfortable cooperative, has baseline dementia per , she is close to her baseline from before her infection. Patient denies any pain or fever at this time, eating breakfast. She does not know where she is or why she is here. No acute concerns at this time. Review of Systems Review of Systems: Negative fever chills Negative headache dizziness Negative chest pain palpitations SOB Negative nausea vomitting diarrhea constipation Negative numbness tingling rash swelling Physical Exam Constitutional: WD/WN, vitals as above Eyes: PERRL, conjunctivae normal, anicteric sclerae ENMT: external ear and nose normal, oropharynx normal Neck: trachea midline, no thyromegaly Respiratory: normal respiratory effort, lungs clear to auscultation Cardiovascular: Rate/Rhythm: regular rate and regular rhythm Chest (Breasts): Chest: normal inspection of chest Gastrointestinal (Abdomen): normal bowel sounds, soft, nontender, no hepa tosplenomegaly Skin: no rashes, warm and dry Results & Data Results & Data ([facility]) Vital Signs (Past 12 Hours) Vital Signs Temp Pulse Resp BP Pulse Ox O2 Del Method 09/16/21 22:30 36.9 C 76 18 164/77 H 91 Room Air 09/16/21 21:46 Room Air Laboratory Results 09/17/21 09/17/21 09/16/21 Range/Units 06:28 06:28 20:37 WBC 2.42 L (4.8-10.8) K/ul RBC 4.54 (3.93-5.22) M/uL Hgb 12.9 (12.0-16.0) g/dl Hct 38.3 (34.1-44.9) % MCV 84.4 (80.0-100.0) fL MCH 28.4 (25.0-34.0) pg MCHC 33.7 (32.0-36.0) g/dL RDW Std Deviation 43.1 (36.4-46.3) fL RDW Coeff of Veronica 13.9 (11.5-14.5) % Plt Count 22 L* (130-400) K/uL MPV 13.4 H (9.4-12.3) fL Immature Gran % (Auto) 0.8 % Neut % (Auto) 51.7 % Lymph % (Auto) 34.7 % [place] % (Auto) 11.6 % Eos % (Auto) 0.4 % Baso % (Auto) 0.8 % Neut # (Auto) 1.25 L (1.4-6.5) K/uL Lymph # (Auto) 0.84 L (1.2-3.4) K/uL [place] # (Auto) 0.28 (0.24-0.82) K/uL Eos # (Auto) 0.01 (0-0.50) K/uL Baso # (Auto) 0.02 (0-0.2) K/uL Immature Gran # (Auto) 0.02 (0.00-0.02) K/uL Toxic Vacuolation 1+ Sodium 137 (136-145) mmol/L Potassium 3.4 L (3.5-5.1) mmol/L Chloride 105 (98-107) mmol/L Carbon Dioxide 25 (21-32) mmol/L Anion Gap 7 (3-11) BUN 35 H (6-23) mg/dl Creatinine 0.91 D (0.6-1.2) mg/dl Est Cr Clr Drug Dosing 42.8 ml/min Est GFR ( Amer) 66.7 ml/min Est GFR (Non-Af Amer) 57.5 ml/min BUN/Creatinine Ratio 38.5 H (10-20) Glucose 100 H (70-99(Fasting)) mg/dl Calcium 8.1 L (8.5-10.1) mg/dl Magnesium 1.8 (1.7-2.4) mg/dl Total Bilirubin 0.7 (0.2-1.0) mg/dl AST 87 H (13-39) U/L ALT 39 (7-52) U/L Alkaline Phosphatase 36 (34-104) U/L Troponin I High Sens 47.7 H D 89.6 H* D (0-14) pg/ml Total Protein 5.9 L (6.0-8.3) gm/dl Albumin 2.9 L (3.4-5.0) gm/dl Globulin 3.0 (2.5-4.0) gm/dl Albumin/Globulin Ratio 1.0 (0.9-2) Resident Activity Tracking Resident Involvement: Resident Care Provided Care Provided: [facility]
[2021-09-17] MEDS: amLODIPine BESYLATE 5 MG TAB PO SCH (08:42)
[2021-09-17] MEDS: CEROVITE ADV FORMULA TAB PO SCH (08:42)
[2021-09-17] MEDS: ATORVASTATIN 10 MG TAB PO SCH (08:42)
[2021-09-17] MEDS: METOPROLOL TARTRATE 50 MG TAB PO SCH (08:43)
[2021-09-17] MEDS: TOLTERODINE TARTRATE 1 MG TAB PO SCH (08:43)
[2021-09-17] MEDS ORDERED: Nursing to Pharmacy Communication SCH (13:15)
--- NOTE | 2021-09-17 19:18 | Billing Data ---
Date of Service September 17, 2021 Coding Level of Care Code 10281 Subseq Hosp Care Lvl 3
[2021-09-17] MEDS: PANTOprazole 40 MG TAB PO SCH (19:56)
[2021-09-18] MEDS ORDERED: DOXYCYCLINE HYCLATE 100 MG in DEXTROSE 5% 100 ML IV SCH
[2021-09-18] MEDS: LEVOTHYROXINE SODIUM 125 MCG TABLET PO SCH (05:12)
[2021-09-18] MEDS ORDERED: DOXYCYCLINE HYCLATE 100 MG CAP PO SCH (06:00)
[2021-09-18 06:31] LABS: Hematocrit (blood only) 38.1 % (34.1-44.9); Mean Corpuscular Hemoglobin 28.7 pg (25.0-34.0); Mean Corpuscular Hgb Conc 34.1 g/dL (32.0-36.0); Mean Corpuscular Volume 84.1 fL (80.0-100.0); Red Blood Count 4.53 M/uL (3.93-5.22); White Blood Count 4.51 K/ul (4.8-10.8)
[2021-09-18 06:53] LABS: BUN Creatinine Ratio 37.8 (10-20); Calcium 7.8 mg/dl (8.5-10.1); Creatinine Clr Calc Pharmacy 53.1 ml/min; Est GFR (African American) 85.6 ml/min; Est GFR (Non-African American) 73.9 ml/min; Potassium 3.3 mmol/L (3.5-5.1)
[2021-09-18 07:47] LABS: Platelet Count 35 K/uL (130-400)
[2021-09-18] MEDS: TOLTERODINE TARTRATE 1 MG TAB PO SCH (08:18)
--- NOTE | 2021-09-18 08:18 | Hospitalist Progress Note ---
Date of Service September 18, 2021 Assessment & Plan (1) Anaplasmosis: Plan: 86 y/o female with a PMH of hypertension, hypothyroidism, hyperlipidemia, GERD, and osteoarthritis who presents with confusion (1) Anaplasmosis: - With thrombocytopenia, leukopenia. now uptrending - IV doxycycline 100 mg BID. transition to oral when tolerated - Continue to follow PLT and WBCs on daily CBC. (2) NIRU (acute kidney injury): - improving - Likely secondary to dehydration as pt's PO intake reportedly has been low for some time. Has not been using NSAIDs for pain. - started IVF, dc'd - Avoid nephrotoxins, renally dose meds as able. - Baseline Cr .95, GFR ~50 -continue to monitor (3) Encephalopathy: - improving - Head CT and CT A/P without acute findings. - Likely in setting of infection, although suspect there may be some underlying degree of dementia. - Monitor response to antibiotics and IVF. - PT and OT ordered, recommend inpatient rehab, family prefers [facility]. Will notify case management (4) Elevated troponin: - downtrending - hs Trop 70, EKG with tachycardia and PVCs, no ST segment or T wave changes. Without chest pain. Downtrending (5) Low back pain: - Inferior sacral fracture on 09/14 - Continue to treat with lidocaine patches, Tylenol. Avoid NSAIDs due to NIRU. (6) Thrombocytopenia: - Likely due to #1, follow labs. (7) Leukopenia: - Likely due to #1, follow labs. (8) Essential hypertension: - Continue amlodipine and metoprolol. (9) Hypercholesterolemia: - Continue statin. (10) Hypothyroidism: - Continue levothyroxine. Plan - Admit to med/tele. - SCDs for VTE ppx. - Full Code. (2) NIRU (acute kidney injury): (3) Encephalopathy: (4) Hypothyroidism: (5) Hypercholesterolemia: Admission and Anticipated Discharge Date Admission Date: September 16, 2021 Supervising Physician Co-Signing Physician Notes I personally examined the patient and verified all rhodes points of history and exam, discussed case, and agree with decision making with Dr Tai Wants to go home, does still seem to be off-and-on confused. was to come assess how she is doing. Daughter called and very concerned about her safety at home in her current state. vitals noted nad heent nc at mmm breathing unlabored no accessory muscles good effort skin no rashes no pallor or icterus neuro no focal deficits. pleasant but confused. Walks a small portion of the hallway with the patientshe vacillated between a wide-based somewhat steady gait, and occasional lurches to the right and backwards which prompted her to grab a hold of what ever was closest to her. Further she got about 20 feet down the hallway and then said "I do not know where I am". When turning to get her back to her room, she also attempted to go in the wrong room had I am not redirected her. anaplasmosis - encephalopathy seems to have resolved - back to baseline. continue doxy. PT/OT. While she wants to go home, I am not sure she really understands the degree of her weaknesscertainly would want her to be fully aware of how her weakness is and to be fully confident that he could care for her in her current state. If this is not the case, then definitely would benefit from rehab. otherwise as above Subjective Patient seen at bedside calm comfortable cooperative, is able to identify location year and birthday, is more conversive compared to yesterday. Patient states she would prefer to go home. After discussion with patient and her , agreed that physical therapy is necessary to regain her strength. requested explanation of what Anaplasmosis is. Review of Systems Review of Systems: Negative fever chills Negative headache dizziness Negative chest pain palpitations SOB Negative nausea vomitting diarrhea constipation Negative numbness tingling rash swelling Physical Exam Constitutional: WD/WN, vitals as above Eyes: PERRL, conjunctivae normal, anicteric sclerae ENMT: external ear and nose normal, oropharynx normal Neck: trachea midline, no thyromegaly Respiratory: normal respiratory effort, lungs clear to auscultation Cardiovascular: Rate/Rhythm: regular rate and regular rhythm Chest (Breasts): Chest: normal inspection of chest Gastrointestinal (Abdomen): normal bowel sounds, soft, nontender, no hepatosplenomegaly Skin: no rashes, warm and dry Results & Data Results & Data ([facility]) Vital Signs (Past 12 Hours) Vital Signs Temp Pulse Pulse Resp BP Pulse Ox O2 Del Method 09/18/21 07:39 36.5 C 62 16 166/81 H 96 Room Air 09/18/21 06:13 54 L 09/18/21 03:05 36.6 C 61 18 157/82 H 93 Room Air 09/17/21 22:51 36.7 C 61 17 161/71 H 95 Room Air 09/17/21 23:00 62 09/17/21 21:33 Room Air Resident Activity Tracking Resident Involvement: Resident Care Provided Care Provided: Adult Hospital Medicine
[2021-09-18] MEDS: amLODIPine BESYLATE 5 MG TAB PO SCH (08:19)
[2021-09-18] MEDS: METOPROLOL TARTRATE 50 MG TAB PO SCH (08:22)
[2021-09-18] MEDS: ATORVASTATIN 10 MG TAB PO SCH (08:22)
[2021-09-18] MEDS: CEROVITE ADV FORMULA TAB PO SCH (08:22)
[2021-09-18] MEDS ORDERED: POTASSIUM CHLORIDE CRTAB 20 MEQ TABCR PO STA (10:16)
[2021-09-18] MEDS: SODIUM CHLORIDE 0.9% 1000ML 1,000 ML IV SCH (10:45)
--- NOTE | 2021-09-18 19:08 | Billing Data ---
Date of Service September 18, 2021 Coding Level of Care Code 69191 Subseq Hosp Care Lvl 3
[2021-09-18] MEDS: PANTOprazole 40 MG TAB PO SCH (21:34)
[2021-09-18] MEDS: DOXYCYCLINE HYCLATE 100 MG CAP PO SCH (21:34)
[2021-09-19] MEDS: LEVOTHYROXINE SODIUM 125 MCG TABLET PO SCH (05:44)
[2021-09-19 06:42] LABS: Hematocrit (blood only) 38.4 % (34.1-44.9); Hemoglobin 13.1 g/dl (12.0-16.0); Mean Corpuscular Hemoglobin 28.4 pg (25.0-34.0); Mean Corpuscular Hgb Conc 34.1 g/dL (32.0-36.0); Mean Corpuscular Volume 83.1 fL (80.0-100.0); RDW Standard Deviation 42.5 fL (36.4-46.3); Red Blood Count 4.62 M/uL (3.93-5.22)
[2021-09-19 07:05] LABS: Albumin Level 2.9 gm/dl (3.4-5.0); BUN Creatinine Ratio 32.3 (10-20); Bilirubin,Total 0.6 mg/dl (0.2-1.0); Calcium 7.8 mg/dl (8.5-10.1); Creatinine Clr Calc Pharmacy 60.5 ml/min; Est GFR (African American) 93.8 ml/min; Globulin 2.9 gm/dl (2.5-4.0); Magnesium 1.6 mg/dl (1.7-2.4); Potassium 3.6 mmol/L (3.5-5.1); Total Protein 5.8 gm/dl (6.0-8.3)
[2021-09-19 07:33] LABS: Mean Platelet Volume 13.7 fL (9.4-12.3); Platelet Count 60 K/uL (130-400)
[2021-09-19] MEDS: amLODIPine BESYLATE 5 MG TAB PO SCH (07:36)
[2021-09-19] MEDS: CEROVITE ADV FORMULA TAB PO SCH (07:36)
[2021-09-19] MEDS: TOLTERODINE TARTRATE 1 MG TAB PO SCH (07:36)
[2021-09-19] MEDS: METOPROLOL TARTRATE 50 MG TAB PO SCH (07:36)
[2021-09-19] MEDS: DOXYCYCLINE HYCLATE 100 MG CAP PO SCH ×2 (07:37→20:39)
[2021-09-19] MEDS: ATORVASTATIN 10 MG TAB PO SCH (07:37)
--- NOTE | 2021-09-19 07:59 | Hospitalist Progress Note ---
Date of Service September 19, 2021 Assessment & Plan (1) Anaplasmosis: Plan: 86 y/o female with a PMH of hypertension, hypothyroidism, hyperlipidemia, GERD, and osteoarthritis who presents with confusion ()Weakness -patient and agree to inpatient rehab, awaiting response from [facility]. Case Management on board (1) Anaplasmosis: - With thrombocytopenia, leukopenia. now uptrending - IV doxycycline 100 mg BID, transitioned to PO, total 10 day course - Continue to follow PLT and WBCs on daily CBC. (2) NIRU (acute kidney injury): - improving - Likely secondary to dehydration as pt's PO intake reportedly has been low for some time. Has not been using NSAIDs for pain. - started IVF, dc'd - Avoid nephrotoxins, renally dose meds as able. - Baseline Cr .95, GFR ~50 -continue to monitor (3) Encephalopathy: - improving - Head CT and CT A/P without acute findings. - Likely in setting of infection, although suspect there may be some underlying degree of dementia. - Monitor response to antibiotics and IVF. - PT and OT ordered, recommend inpatient rehab, family prefers [facility]. Will notify case management (4) Elevated troponin: - downtrending - hs Trop 70, EKG with tachycardia and PVCs, no ST segment or T wave changes. Without chest pain. Downtrending (5) Low back pain: - Inferior sacral fracture on 09/14 - Continue to treat with lidocaine patches, Tylenol. Avoid NSAIDs due to NIRU. (6) Thrombocytopenia: - Likely due to #1, follow labs. (7) Leukopenia: - Likely due to #1, follow labs. (8) Essential hypertension: - Continue amlodipine and metoprolol. (9) Hypercholesterolemia: - Continue statin. (10) Hypothyroidism: - Continue levothyroxine. Plan - Admit to med/tele. - SCDs for VTE ppx. - Full Code. (2) NIRU (acute kidney injury): (3) Encephalopathy: (4) Hypothyroidism: (5) Hypercholesterolemia: Admission and Anticipated Discharge Date Admission Date: September 16, 2021 Supervising Physician Co-Signing Physician Notes I personally examined the patient and verified all rhodes points of history and exam, discussed case, and agree with decision making with Dr Tai no new complaints. for rehab. awaiting auth. vitals noted nad heent nc at mmm breathing unlabored no accessory muscles good effort skin no rashes no pallor or icterus neuro no focal deficits. pleasant but confused. anaplasmosis - encephalopathy seems to have resolved - back to baseline. continue doxy. PT/OT. for rehab - awaiting auth. otherwise as above Subjective Patient seen at bedside calm comfortable cooperative, understands we are waiting for placement. No acute concerns at this time. Review of Systems Review of Systems: Negative fever chills Negative headache dizziness Negative chest pain palpitations SOB Negative nausea vomitting diarrhea constipation Negative numbness tingling rash swelling Physical Exam Constitutional: WD/WN, vitals as above Eyes: PERRL, conjunctivae normal, anicteric sclerae ENMT: external ear and nose normal, oropharynx normal Neck: trachea midline, no thyromegaly Respiratory: normal respiratory effort, lungs clear to auscultation Cardiovascular: Rate/Rhythm: regular rate and regular rhythm Chest (Breasts): Chest: normal inspection of chest Gastrointestinal (Abdomen): normal bowel sounds, soft, nontender, no hepatosplenomegaly Skin: no rashes, warm and dry Results & Data Results & Data ([facility]) Vital Signs (Past 12 Hours) Vital Signs Temp Pulse Pulse Resp BP Pulse Ox O2 Del Method 09/19/21 07:51 36.9 C 65 16 180/81 H 95 Room Air 09/19/21 07:15 60 09/19/21 02:46 36.7 C 63 19 167/77 H 94 Room Air 09/19/21 00:15 158/76 H 09/19/21 01:13 66 09/18/21 22:51 36.7 C 76 19 168/68 H 96 Room Air Diagnostic Findings Laboratory Results WBC 6.70 K/ul (4.8-10.8) 09/19/21 05:24 RBC 4.62 M/uL (3.93-5.22) 09/19/21 05:24 Hgb 13.1 g/dl (12.0-16.0) 09/19/21 05:24 Hct 38.4 % (34.1-44.9) 09/19/21 05:24 MCV 83.1 fL (80.0-100.0) 09/19/21 05:24 MCH 28.4 pg (25.0-34.0) 09/19/21 05:24 MCHC 34.1 g/dL (32.0-36.0) 09/19/21 05:24 RDW Std Deviation 42.5 fL (36.4-46.3) 09/19/21 05:24 RDW Coeff of Veronica 14.0 % (11.5-14.5) 09/19/21 05:24 Plt Count 60 K/uL (130-400) L D 09/19/21 05:24 MPV 13.7 fL (9.4-12.3) H 09/19/21 05:24 Immature Gran % (Auto) 0.8 % 09/17/21 06:28 Neut % (Auto) 51.7 % 09/17/21 06:28 Lymph % (Auto) 34.7 % 09/17/21 06:28 [place] % (Auto) 11.6 % 09/17/21 06:28 Eos % (Auto) 0.4 % 09/17/21 06:28 Baso % (Auto) 0.8 % 09/17/21 06:28 Neut # (Auto) 1.25 K/uL (1.4-6.5) L 09/17/21 06:28 Lymph # (Auto) 0.84 K/uL (1.2-3.4) L 09/17/21 06:28 [place] # (Auto) 0.28 K/uL (0.24-0.82) 09/17/21 06:28 Eos # (Auto) 0.01 K/uL (0-0.50) 09/17/21 06:28 Baso # (Auto) 0.02 K/uL (0-0.2) 09/17/21 06:28 Immature Gran # (Auto) 0.02 K/uL (0.00-0.02) 09/17/21 06:28 Toxic Vacuolation 1+ 09/17/21 06:28 Platelet Estimate Signific. Decreased (Normal) L 09/16/21 08:50 Peripher Smr Path Cons 09/16/21 08:50 Sodium 137 mmol/L (136-145) 09/19/21 05:24 Potassium 3.6 mmol/L (3.5-5.1) 09/19/21 05:24 Chloride 105 mmol/L (98-107) 09/19/21 05:24 Carbon Dioxide 25 mmol/L (21-32) 09/19/21 05:24 Anion Gap 7 (3-11) 09/19/21 05:24 BUN 21 mg/dl (6-23) 09/19/21 05:24 Creatinine 0.65 mg/dl (0.6-1.2) 09/19/21 05:24 Est Cr Clr Drug Dosing 60.5 ml/min 09/19/21 05:24 Est GFR ( Amer) 93.8 ml/min 09/19/21 05:24 Est GFR (Non-Af Amer) 81.0 ml/min 09/19/21 05:24 BUN/Creatinine Ratio 32.3 (10-20) H 09/19/21 05:24 Glucose 96 mg/dl (70-99(Fasting)) 09/19/21 05:24 Calcium 7.8 mg/dl (8.5-10.1) L 09/19/21 05:24 Magnesium 1.6 mg/dl (1.7-2.4) L 09/19/21 05:24 Total Bilirubin 0.6 mg/dl (0.2-1.0) 09/19/21 05:24 AST 50 U/L (13-39) H 09/19/21 05:24 ALT 32 U/L (7-52) 09/19/21 05:24 Alkaline Phosphatase 40 U/L (34-104) 09/19/21 05:24 Troponin I High Sens 47.7 pg/ml (0-14) H D 09/17/21 06:28 Total Protein 5.8 gm/dl (6.0-8.3) L 09/19/21 05:24 Albumin 2.9 gm/dl (3.4-5.0) L 09/19/21 05:24 Globulin 2.9 gm/dl (2.5-4.0) 09/19/21 05:24 Albumin/Globulin Ratio 1.0 (0.9-2) 09/19/21 05:24 Lipase 24 U/L (11-82) 09/16/21 08:50 Urine Color Dark Yellow 09/16/21 08:59 Urine Appearance Cloudy (Clear) A 09/16/21 08:59 Urine pH 5.5 (4.5-7.5) 09/16/21 08:59 Ur Specific [place] 1.019 (1.000-1.030) 09/16/21 08:59 Urine Protein 2+ (Negative) H 09/16/21 08:59 Urine Glucose (UA) Negative (Negative) 09/16/21 08:59 Urine Ketones Negative (Negative) 09/16/21 08:59 Urine Blood 2+ (Negative) H 09/16/21 08:59 Urine Nitrite Negative (Negative) 09/16/21 08:59 Urine Bilirubin Negative (Negative) 09/16/21 08:59 Urine Urobilinogen Negative (Negative) 09/16/21 08:59 Ur Leukocyte Esterase Negative (Negative) 09/16/21 08:59 Urine WBC (Auto) 5-10 /hpf (0-5) H 09/16/21 08:59 Urine RBC (Auto) 0-4 /hpf (0-4) 09/16/21 08:59 U Hyaline Cast (Auto) 0 /lpf (0-5) 09/16/21 08:59 U Epithel Cells (Auto) >30 /lpf (0-5) H 09/16/21 08:59 Urine Bacteria (Auto) 3+ (Negative) H 09/16/21 08:59 Granular Casts 1-5 /lpf (0) H 09/16/21 08:59 Anaplasma Smear See Comment A 09/16/21 08:50 Anaplasma Comment Pos for Anaplasma 09/16/21 08:50 SARS-CoV-2, RNA, NAAT NEGATIVE (NEGATIVE) 09/16/21 09:07 Impressions Abdomen/Pelvis CT 09/16/21 08:50 CT abd pelvis IV con only CLINICAL HISTORY: abd pain sp fall TECHNIQUE: Helical axial images of the abdomen and pelvis were obtained and displayed. Automated dose lowering techniques and/or adjustment according to patient size were utilized for this exam. This exam was performed with intravenous contrast. CT DOSE: 915.92 mGy.cm COMPARISON: Comparison is made to CT abdomen pelvis 09/14/2021 FINDINGS: Lower chest: No acute abnormality Liver: Unremarkable. No focal lesions are seen. Gallbladder and biliary tree: Cholelithiasis is seen without evidence of cholecystitis. No intra- or extrahepatic biliary ductal dilation. Pancreas: Unremarkable, no focal lesions. Spleen: Unremarkable. Adrenals: Unremarkable. Kidneys and ureters: Previously noted renal cysts are stable. Subcentimeter h ypodensities are unchanged and too small to characterize. Bladder: Unremarkable. Reproductive organs: Unremarkable. Bowel: Diverticulosis is seen without evidence of diverticulitis. The appendix is normal. Lymph nodes Retroperitoneal: Unremarkable. Mesenteric: Unremarkable. Pelvic: Unremarkable. Peritoneum: Normal. Vessels: Atherosclerotic calcifications are seen. Abdominal wall: Unremarkable. Bones: Previously noted inferior sacral fracture is again seen. Degenerative changes are seen in the spine. IMPRESSION: 1. Redemonstration of previously noted inferior sacral fracture. No new fractures are seen. 2. Cholelithiasis without cholecystitis. 3. Diverticulosis without diverticulitis. Additional findings as above. ACT 112: Negative or not required by law. Electronically signed by: Vikash Pablo M.D. 09/16/2021 10:[address] 09/16/21 08:[address] DOSE: HISTORY: Altered mental status. TECHNIQUE: Multiaxial CT images of the head were performed without the use of intravenous contrast. Automated exposure control was utilized for this study. A dose lowering technique was utilized adhering to the principles of ALARA. Comparison: Head CT 10/12/2014. Findings: The paranasal sinuses and mastoid air cells are clear. The calvarium and skull base are intact. There is no mass, hematoma, midline shift, acute infarct. White matter hypodensity is nonspecific but suggestive of microvascular ischemic change. The ventricles and sulci demonstrate mild age-related involutional changes. Impression: No acute intracranial abnormality. Atrophy and microvascular ischemic changes. ACT 112: Negative or not required by law. Electronically signed by: Peter Munguia M.D. 09/16/2021 10:38 AM Resident Activity Tracking Resident Involvement: Resident Care Provided Care Provided: [facility] Medicine
[2021-09-19] MEDS ORDERED: POTASSIUM CHLORIDE PWD 20 MEQ PACK PO ONE (10:30)
[2021-09-19] MEDS: MAGNESIUM SULFATE / D5W 1 GM/100 ML BAG IV SCH ×2 (10:47→12:32)
--- NOTE | 2021-09-19 18:17 | Billing Data ---
Date of Service September 19, 2021 Coding Level of Care Code 90799 Subseq Hosp Care Lvl 2
[2021-09-19] MEDS: PANTOprazole 40 MG TAB PO SCH (20:39)
[2021-09-20] MEDS: LEVOTHYROXINE SODIUM 125 MCG TABLET PO SCH (05:44)
[2021-09-20 07:03] LABS: Hematocrit (blood only) 39.5 % (34.1-44.9); Hemoglobin 13.3 g/dl (12.0-16.0); Mean Corpuscular Hemoglobin 28.3 pg (25.0-34.0); Mean Corpuscular Hgb Conc 33.7 g/dL (32.0-36.0); Mean Platelet Volume 11.7 fL (9.4-12.3); Platelet Count 102 K/uL (130-400); RDW Coefficient of Variation 14.1 % (11.5-14.5); RDW Standard Deviation 43.4 fL (36.4-46.3); White Blood Count 6.58 K/ul (4.8-10.8)
[2021-09-20 07:10] LABS: BUN Creatinine Ratio 25.3 (10-20); Creatinine Clr Calc Pharmacy 47.6 ml/min; Est GFR (African American) 79.1 ml/min; Est GFR (Non-African American) 68.3 ml/min
--- NOTE | 2021-09-20 07:16 | Hospitalist Progress Note ---
Date of Service September 20, 2021 Assessment & Plan (1) Anaplasmosis: Plan: 86 y/o female with a PMH of hypertension, hypothyroidism, hyperlipidemia, GERD, and osteoarthritis who presents with confusion ()Weakness -patient and agree to inpatient rehab, awaiting response from [facility]. Case Management on board (1) Anaplasmosis: - With thrombocytopenia, leukopenia. now uptrending - IV doxycycline 100 mg BID, transitioned to PO, total 10 day course (day 5) - Continue to follow PLT and WBCs on daily CBC, uptrending (2) NIRU (acute kidney injury): - resolved - Likely secondary to dehydration as pt's PO intake reportedly has been low for some time. Has not been using NSAIDs for pain. - started IVF, dc'd - Baseline Cr .95, GFR ~50 -continue to monitor (3) Encephalopathy: - improving - Head CT and CT A/P without acute findings. - Likely in setting of infection, although suspect there may be some underlying degree of dementia. - Monitor response to antibiotics and IVF. - PT and OT ordered, recommend inpatient rehab, family prefers [facility], case management aware (4) Elevated troponin: - downtrending - hs Trop 70, EKG with tachycardia and PVCs, no ST segment or T wave changes. Without chest pain. Downtrending (5) Low back pain: - Inferior sacral fracture on 09/14 - Continue to treat with lidocaine patches, Tylenol. (6) Thrombocytopenia: - uptrending - Likely due to #1, follow labs. (7) Leukopenia: - resolved - Likely due to #1, follow labs. (8) Essential hypertension: - Continue amlodipine and metoprolol. (9) Hypercholesterolemia: - Continue statin. (10) Hypothyroidism: - Continue levothyroxine. Plan - Admit to med/tele. - SCDs for VTE ppx. - Full Code. (2) NIRU (acute kidney injury): (3) Encephalopathy: (4) Hypothyroidism: (5) Hypercholesterolemia: Admission and Anticipated Discharge Date Admission Date: September 16, 2021 Supervising Physician Co-Signing Physician Notes I personally examined the patient and verified all rhodes points of history and exam, discussed case, and agree with decision making with Dr Tai no new complaints. for rehab. still awaiting auth. vitals noted nad heent nc at mmm breathing unlabored no accessory muscles good effort skin no rashes no pallor or icterus neuro no focal deficits. pleasant but confused. anaplasmosis - metabolic encephalopathy seems to have resolved - back to baseline. continue doxy. PT/OT. for rehab - awaiting auth. otherwise as above Subjective Patient seen at bedside, calm comfortable cooperative. Patient understands we are still waiting to hear back for placement, no acute concerns at this time. Review of Systems Review of Systems: Negative fever chills Negative headache dizziness Negative chest pain palpitations SOB Negative nausea vomitting diarrhea constipation Negative numbness tingling rash swelling Physical Exam Constitutional: WD/WN, vitals as above Eyes: PERRL, conjunctivae normal, anicteric sclerae ENMT: external ear and nose normal, oropharynx normal Neck: trachea midline, no thyromegaly Respiratory: normal respiratory effort, lungs clear to auscultation Cardiovascular: Rate/Rhythm: regular rate and regular rhythm Chest (Breasts): Chest: normal inspection of chest Gastrointestinal (Abdomen): normal bowel sounds, soft, nontender, no hepatosplenomegaly Skin: no rashes, warm and dry Results & Data Results & Data ([facility]) Vital Signs (Past 12 Hours) Vital Signs Temp Pulse Pulse Resp BP BP Pulse Ox 09/20/21 04:39 191/85 H 09/20/21 03:19 36.5 C 67 18 187/91 H 95 09/19/21 22:20 60 09/20/21 00:15 165/84 H 09/19/21 23:32 36.6 C 61 18 186/77 H 99 09/19/21 19:17 36.8 C 66 18 157/74 H 95 O2 Del Method 09/20/21 04:39 09/20/21 03:19 Room Air 09/19/21 22:20 09/20/21 00:15 09/19/21 23:32 Room Air 09/19/21 19:17 Room Air Resident Activity Tracking Resident Involvement: Resident Care Provided Care Provided: Adult Hospital Medicine
[2021-09-20] MEDS: CEROVITE ADV FORMULA TAB PO SCH (08:23)
[2021-09-20] MEDS: METOPROLOL TARTRATE 50 MG TAB PO SCH (08:24)
[2021-09-20] MEDS: ATORVASTATIN 10 MG TAB PO SCH (08:24)
[2021-09-20] MEDS: amLODIPine BESYLATE 5 MG TAB PO SCH (08:24)
[2021-09-20] MEDS: DOXYCYCLINE HYCLATE 100 MG CAP PO SCH ×2 (08:24→20:57)
[2021-09-20] MEDS: TOLTERODINE TARTRATE 1 MG TAB PO SCH (08:24)
--- NOTE | 2021-09-20 18:27 | Billing Data ---
Date of Service September 20, 2021 Coding Level of Care Code 36730 Subseq Hosp Care Lvl 1
[2021-09-20] MEDS: PANTOprazole 40 MG TAB PO SCH (20:57)
[2021-09-21] MEDS: LEVOTHYROXINE SODIUM 125 MCG TABLET PO SCH (05:38)
[2021-09-21 06:32] LABS: Hematocrit (blood only) 37.9 % (34.1-44.9); Hemoglobin 12.8 g/dl (12.0-16.0); Mean Corpuscular Hemoglobin 27.9 pg (25.0-34.0); Mean Corpuscular Hgb Conc 33.8 g/dL (32.0-36.0); Mean Corpuscular Volume 82.8 fL (80.0-100.0); Mean Platelet Volume 11.4 fL (9.4-12.3); Platelet Count 155 K/uL (130-400); RDW Coefficient of Variation 14.2 % (11.5-14.5); RDW Standard Deviation 42.7 fL (36.4-46.3); Red Blood Count 4.58 M/uL (3.93-5.22); White Blood Count 6.51 K/ul (4.8-10.8)
--- NOTE | 2021-09-21 06:53 | Hospitalist Progress Note ---
Date of Service September 21, 2021 Assessment & Plan (1) Anaplasmosis: Plan: 86 y/o female with a PMH of hypertension, hypothyroidism, hyperlipidemia, GERD, and osteoarthritis who presents with confusion ()Weakness -patient and agree to inpatient rehab, awaiting response from [facility]. Case Management on board, auth pending, may require P2P prior to thursday -PT/OT ordered, following (1) Anaplasmosis: - With thrombocytopenia, leukopenia. now uptrending - IV doxycycline 100 mg BID, transitioned to PO, total 10 day course (day 6) - Continue to follow PLT and WBCs on daily CBC, wnl (2) NIRU (acute kidney injury): - resolved - Likely secondary to dehydration as pt's PO intake reportedly has been low for some time. Has not been using NSAIDs for pain. - started IVF, dc'd - Baseline Cr .95, GFR ~50 -continue to monitor (3) Encephalopathy: - improving - Head CT and CT A/P without acute findings. - Likely in setting of infection, although suspect there may be some underlying degree of dementia. - Monitor response to antibiotics and IVF. - PT and OT ordered, recommend inpatient rehab, family prefers [facility], case management aware (4) Elevated troponin: - downtrending - hs Trop 70, EKG with tachycardia and PVCs, no ST segment or T wave changes. Without chest pain. Downtrending (5) Low back pain: - Inferior sacral fracture on 09/14 - Continue to treat with lidocaine patches, Tylenol. (6) Thrombocytopenia: - resolved - Likely due to #1, follow labs. (7) Leukopenia: - resolved - Likely due to #1, follow labs. (8) Essential hypertension: - Continue amlodipine and metoprolol. (9) Hypercholesterolemia: - Continue statin. (10) Hypothyroidism: - Continue levothyroxine. Plan - Admit to med/tele. - SCDs for VTE ppx. - Full Code. (2) NIRU (acute kidney injury): (3) Encephalopathy: (4) Hypothyroidism: (5) Hypercholesterolemia: Admission and Anticipated Discharge Date Admission Date: September 16, 2021 Supervising Physician Co-Signing Physician Notes I personally examined the patient and verified all rhodes points of history and exam, discussed case, and agree with decision making with Dr Tai no complaints. for rehab. still awaiting auth. vitals noted nad heent nc at mmm breathing unlabored no accessory muscles good effort skin no rashes no pallor or icterus neuro no focal deficits. pleasant but confused. anaplasmosis - metabolic encephalopathy seems to have resolved - back to baseline. continue doxy for likley 14 total days. PT/OT. for rehab - still awaiting auth. otherwise as above Subjective Patient seen at bedside, calm comfortable cooperative. She wonders if PT will come in today. PT has been following for the past 3 days. Patient understands her WBC and platelets are back to normal range and she has recovere well from her anaplasmosis. Still awaiting placement at this time. Review of Systems Review of Systems: Negative fever chills Negative headache dizziness Negative chest pain palpitations SOB Negative nausea vomitting diarrhea constipation Negative numbness tingling rash swelling Physical Exam Constitutional: WD/WN, vitals as above Eyes: PERRL, conjunctivae normal, anicteric sclerae ENMT: external ear and nose normal, oropharynx normal Neck: trachea midline, no thyromegaly Respiratory: normal respiratory effort, lungs clear to auscultation Cardiovascular: Rate/Rhythm: regular rate and regular rhythm Chest (Breasts): Chest: normal inspection of chest Gastrointestinal (Abdomen): normal bowel sounds, soft, nontender, no hepatosplenomegaly Skin: no rashes, warm and dry Results & Data Results & Data ([facility]) Vital Signs (Past 12 Hours) Vital Signs Temp Pulse Pulse Resp BP Pulse Ox O2 Del Method 09/21/21 04:40 36.5 C 66 17 172/80 H 93 Room Air 09/20/21 22:20 64 09/21/21 00:34 36.7 C 65 18 189/84 H 96 Room Air 09/20/21 19:45 36.6 C 70 16 149/74 H 100 Room Air Medications Administered Current Inpatient Medications Acetaminophen (Acetaminophen 325 Mg Tab) 650 mg PO Q6 PRN PRN Reason: Pain Stop: 10/16/21 14:35 Amlodipine Besylate (Amlodipine Besylate 5 Mg Tab) 5 mg PO QAM ESTEFANIA Stop: 10/17/21 08:59 Last Admin: 09/21/21 08:07 Dose: 5 mg Atorvastatin Calcium (Atorvastatin 10 Mg Tab) 10 mg PO DAILY ESTEFANIA Stop: 10/17/21 08:59 Last Admin: 09/21/21 08:07 Dose: 10 mg Doxycycline Hyclate (Doxycycline Hyclate 100 Mg Cap) 100 mg PO BID [facility]; Protocol Stop: 10/02/21 20:59 Last Admin: 09/21/21 08:06 Dose: 100 mg Levothyroxine Sodium (Levothyroxine Sodium 125 Mcg Tablet) 125 mcg PO DAILYBB [facility] Stop: 10/17/21 06:29 Last Admin: 09/21/21 05:38 Dose: 125 mcg Metoprolol Tartrate (Metoprolol Tartrate 50 Mg Tab) 50 mg PO DAILY [facility] Stop: 10/17/21 08:59 Last Admin: 09/21/21 08:07 Dose: 50 mg Multivitamins/Minerals (Cerovite Adv Formula Tab) 1 tab PO DAILY [facility]; Protocol Stop: 10/17/21 08:59 Last Admin: 09/21/21 08:07 Dose: 1 tab Ondansetron HCl (Ondansetron Inj 2 Mg/Ml 2 Ml Vial) 4 mg IV Q6H PRN PRN Reason: Nausea Stop: 10/16/21 14:35 Pantoprazole Sodium (Pantoprazole 40 Mg Tab) 40 mg PO [facility]; Protocol Stop: 10/16/21 20:59 Last Admin: 09/20/21 20:57 Dose: 40 mg Tolterodine Tartrate (Tolterodine Tartrate 1 Mg Tab) [facility] Stop: 10/17/21 08:59 Last Admin: 09/21/21 08:07 Dose: 1 mg Resident Activity Tracking Resident Involvement: Resident Care Provided Care Provided: Adult Hospital Medicine
[2021-09-21] MEDS: DOXYCYCLINE HYCLATE 100 MG CAP PO SCH ×2 (08:06→20:18)
[2021-09-21] MEDS: amLODIPine BESYLATE 5 MG TAB PO SCH (08:07)
[2021-09-21] MEDS: METOPROLOL TARTRATE 50 MG TAB PO SCH (08:07)
[2021-09-21] MEDS: TOLTERODINE TARTRATE 1 MG TAB PO SCH (08:07)
[2021-09-21] MEDS: ATORVASTATIN 10 MG TAB PO SCH (08:07)
[2021-09-21] MEDS: CEROVITE ADV FORMULA TAB PO SCH (08:07)
--- NOTE | 2021-09-21 17:34 | Billing Data ---
Date of Service September 21, 2021 Coding Level of Care Code 20846 Subseq Hosp Care Lvl 1
[2021-09-21] MEDS: PANTOprazole 40 MG TAB PO SCH (20:18)
[2021-09-22] MEDS: LEVOTHYROXINE SODIUM 125 MCG TABLET PO SCH (05:31)
--- NOTE | 2021-09-22 06:54 | Hospitalist Progress Note ---
Date of Service September 22, 2021 Assessment & Plan (1) Anaplasmosis: Plan: 86 y/o female with a PMH of hypertension, hypothyroidism, hyperlipidemia, GERD, and osteoarthritis who presents with confusion. ()Weakness -patient and agree to inpatient rehab, awaiting response from [facility]. Case Management on board, auth pending, may require P2P prior to thursday as they are not open on weekends -PT/OT ordered, recommend inpt rehab (1) Anaplasmosis: - With thrombocytopenia, leukopenia. now uptrending - IV doxycycline 100 mg BID, transitioned to PO, total 10 day course (day 7) - Continue to follow PLT and WBCs on daily CBC, wnl. (2) NIRU (acute kidney injury): - resolved - Likely secondary to dehydration as pt's PO intake reportedly has been low for some time. Has not been using NSAIDs for pain. - started IVF, dc'd. - Baseline Cr .95, GFR ~50 -continue to monitor (3) Encephalopathy: - improving - Head CT and CT A/P without acute findings. - Likely in setting of infection, although suspect there may be some underlying degree of dementia. - Monitor response to antibiotics and IVF. - PT and OT ordered, recommend inpatient rehab, family prefers [facility], case management aware (4) Elevated troponin: - downtrending - hs Trop 70, EKG with tachycardia and PVCs, no ST segment or T wave changes. Without chest pain. Downtrending. (5) Low back pain: - Inferior sacral fracture on 09/14 - Continue to treat with lidocaine patches, Tylenol. (6) Thrombocytopenia: - resolved - Likely due to #1, follow labs. (7) Leukopenia: - resolved - Likely due to #1, follow labs. (8) Essential hypertension: - Continue amlodipine and metoprolol. (9) Hypercholesterolemia: - Continue statin. (10) Hypothyroidism: - Continue levothyroxine. Plan - Admit to med/tele. - SCDs for VTE ppx. - Full Code. (2) NIRU (acute kidney injury): (3) Encephalopathy: (4) Hypothyroidism: (5) Hypercholesterolemia: Admission and Anticipated Discharge Date Admission Date: September 16, 2021 Supervising Physician Co-Signing Physician Notes I personally examined the patient and verified all rhodes points of history and exam, discussed case, and agree with decision making with Dr Tai no complaints. for rehab or SNF with rehab emphasis. still awaiting auth. Dr. Tai returned call for peer to peer, apparently insurance not open on the weekends vitals noted nad heent nc at mmm breathing unlabored no accessory muscles good effort skin no rashes no pallor or icterus neuro no focal deficits. pleasant bu t confused. anaplasmosis - metabolic encephalopathy seems to have resolved - back to baseline. continue doxy for likely 14 total days. PT/OT. for rehab - still awaiting auth. Peer to peer return call placed, Dr. Tai noted that insurance is not open for this on the weekends. otherwise as above Subjective Patient seen at bedside, calm comfortable cooperative, no acute concerns at this time. Attempted to call [facility] for P2P, unfortunately only open on business hours Review of Systems Review of Systems: Negative fever chills Negative headache dizziness Negative chest pain palpitations SOB Negative nausea vomitting diarrhea constipation Negative numbness tingling rash swelling Physical Exam Constitutional: WD/WN, vitals as above Eyes: PERRL, conjunctivae normal, anicteric sclerae ENMT: external ear and nose normal, oropharynx normal Neck: trachea midline, no thyromegaly Respiratory: normal respiratory effort, lungs clear to auscultation Cardiovascular: Rate/Rhythm: regular rate and regular rhythm Chest (Breasts): Chest: normal inspection of chest Gastrointestinal (Abdomen): normal bowel sounds, soft, nontender, no hepatosplenomegaly Skin: no rashes, warm and dry Results & Data Results & Data ([facility]) Vital Signs (Past 12 Hours) Vital Signs Temp Pulse Pulse Resp BP BP Pulse Ox 09/22/21 03:09 36.4 C L 68 18 159/76 H 96 09/21/21 22:30 65 09/21/21 23:14 37 C 60 18 139/73 96 09/21/21 19:56 37.1 C 65 18 143/75 H 96 O2 Del Method 09/22/21 03:09 Room Air 09/21/21 22:30 09/21/21 23:14 Room Air 09/21/21 19:56 Room Air Resident Activity Tracking Resident Involvement: Resident Care Provided Care Provided: Adult [facility] Medicine
[2021-09-22] MEDS: DOXYCYCLINE HYCLATE 100 MG CAP PO SCH ×2 (08:13→20:41)
[2021-09-22] MEDS: CEROVITE ADV FORMULA TAB PO SCH (08:14)
[2021-09-22] MEDS: amLODIPine BESYLATE 5 MG TAB PO SCH (08:14)
[2021-09-22] MEDS: METOPROLOL TARTRATE 50 MG TAB PO SCH (08:14)
[2021-09-22] MEDS: TOLTERODINE TARTRATE 1 MG TAB PO SCH (08:14)
[2021-09-22] MEDS: ATORVASTATIN 10 MG TAB PO SCH (08:14)
--- NOTE | 2021-09-22 12:59 | Billing Data ---
Date of Service September 22, 2021 Coding Level of Care Code 65115 Subseq Hosp Care Lvl 1
[2021-09-22] MEDS: PANTOprazole 40 MG TAB PO SCH (20:41)
[2021-09-23] MEDS: LEVOTHYROXINE SODIUM 125 MCG TABLET PO SCH (05:41)
[2021-09-23] MEDS: amLODIPine BESYLATE 5 MG TAB PO SCH (10:21)
[2021-09-23] MEDS: METOPROLOL TARTRATE 50 MG TAB PO SCH (10:21)
[2021-09-23] MEDS: DOXYCYCLINE HYCLATE 100 MG CAP PO SCH ×2 (10:21→20:23)
[2021-09-23] MEDS: TOLTERODINE TARTRATE 1 MG TAB PO SCH (10:21)
[2021-09-23] MEDS: CEROVITE ADV FORMULA TAB PO SCH (10:21)
[2021-09-23] MEDS: ATORVASTATIN 10 MG TAB PO SCH (10:22)
[2021-09-23] MEDS: ADVANCED PROBIOTIC 1250 MG CAPSULE PO SCH (10:23)
[2021-09-23] MEDS: ASPIRIN 81 MG ECTAB PO SCH (11:47)
--- NOTE | 2021-09-23 13:07 | Hospitalist Progress Note ---
Date of Service September 23, 2021 Assessment & Plan (1) Anaplasmosis: Plan: 86 y/o female with a PMH of hypertension, hypothyroidism, hyperlipidemia, GERD, and osteoarthritis who presents with confusion. ()Weakness -patient and agree to inpatient rehab, awaiting response from [facility]. Case Management on board, auth pending, [facility] states they will approve auth for SNF with a likely stay of 1 week -PT/OT ordered, recommend inpt rehab (1) Anaplasmosis: - With thrombocytopenia, leukopenia. now uptrending - IV doxycycline 100 mg BID, transitioned to PO, total 10 day course (day 8) - Continue to follow PLT and WBCs, last seen wnl (2) NIRU (acute kidney injury): - resolved - Likely secondary to dehydration as pt's PO intake reportedly has been low for some time. Has not been using NSAIDs for pain. - started IVF, dc'd. - Baseline Cr .95, GFR ~50 -continue to monitor (3) Encephalopathy: - improving Head CT and CT A/P without acute findings. Likely in setting of infection, although suspect there may be some underlying degree of dementia. Improved with antibiotics and IVF. (4) Elevated troponin: - downtrending hs Trop 70, EKG with tachycardia and PVCs, no ST segment or T wave changes. Without chest pain. Downtrending. (5) Low back pain: Inferior sacral fracture on 09/14. Continue to treat with lidocaine patches, Tylenol. (6) Thrombocytopenia: - resolved Likely due to #1, follow labs. (7) Leukopenia: - resolved Likely due to #1, follow labs. (8) Essential hypertension: Continue amlodipine and metoprolol. (9) Hypercholesterolemia: Continue statin. (10) Hypothyroidism: Continue levothyroxine. Plan - Admit to med/tele. - SCDs for VTE ppx. - Full Code. (2) NIRU (acute kidney injury): (3) Encephalopathy: (4) Hypothyroidism: (5) Hypercholesterolemia: Admission and Anticipated Discharge Date Admission Date: September 16, 2021 Supervising Physician Co-Signing Physician Notes I personally examined the patient and verified all rhodes points of history and exam, discussed case, and agree with decision making with Dr Tai still no complaints. dr tai completed peer to peer - rehab denied, they noted they would approve SNF vitals noted nad heent nc at mmm breathing unlabored no accessory muscles good effort skin no rashes no pallor or icterus neuro no focal deficits. pleasant but confused. anaplasmosis - metabolic encephalopathy seems to have resolved - back to baseline. continue doxy for likely 14 total days. PT/OT. rehab denied. for SNF/rehab emphasis otherwise as above Subjective Patient seen at bedside, calm comfortable cooperative. Denies any acute concerns. She is aware we are still looking into placement at this time. Contacted [facility], they denied inpatient rehab but stated they will approve auth for SNF 1 week. Review of Systems Review of Systems: Negative fever chills Negative headache dizziness Negative chest pain palpitations SOB Negative nausea vomitting diarrhea constipation Negative numbness tingling rash swelling Physical Exam Constitutional: WD/WN, vitals as above Eyes: PERRL, conjunctivae normal, anicteric sclerae ENMT: external ear and nose normal, oropharynx normal Neck: trachea midline, no thyromegaly Respiratory: normal respiratory effort, lungs clear to auscultation Cardiovascular: Rate/Rhythm: regular rate and regular rhythm Chest (Breasts): Chest: normal inspection of chest Gastrointestinal (Abdomen): normal bowel sounds, soft, nontender, no hepatosplenomegaly Skin: no rashes, warm and dry Results & Data Results & Data ([facility]) Vital Signs (Past 12 Hours) Vital Signs Temp Pulse Pulse Resp BP BP Pulse Ox 09/23/21 11:10 36.5 C 71 18 130/70 99 09/23/21 07:43 68 09/23/21 07:32 36.8 C 69 18 165/79 H 94 09/23/21 03:45 37 C 68 16 157/76 H 94 O2 Del Method 09/23/21 11:10 Room Air 09/23/21 07:43 09/23/21 07:32 Room Air 09/23/21 03:45 Room Air Resident Activity Tracking Resident Involvement: Resident Care Provided Care Provided: Adult Hospital Medicine
--- NOTE | 2021-09-23 15:54 | Billing Data ---
Date of Service September 23, 2021 Coding Level of Care Code 47300 Subseq Hosp Care Lvl 1
[2021-09-23] MEDS: PANTOprazole 40 MG TAB PO SCH (20:23)
[2021-09-24] MEDS: LEVOTHYROXINE SODIUM 125 MCG TABLET PO SCH (06:31)
--- NOTE | 2021-09-24 06:59 | Hospitalist Progress Note ---
Date of Service September 24, 2021 Assessment & Plan (1) Anaplasmosis: Plan: 86 y/o female with a PMH of hypertension, hypothyroidism, hyperlipidemia, GERD, and osteoarthritis who presents with confusion. ()Weakness -patient and agree to inpatient rehab, awaiting response from [facility]. Case Management on board, auth pending, [facility] states they will approve auth for SNF with a likely stay of 1 week -PT/OT ordered, recommend inpt rehab (1) Anaplasmosis: - With thrombocytopenia, leukopenia. now uptrending - IV doxycycline 100 mg BID, transitioned to PO, total 10 day course (day 8) - Continue to follow PLT and WBCs, last seen wnl (2) NIRU (acute kidney injury): - resolved - Likely secondary to dehydration as pt's PO intake reportedly has been low for some time. Has not been using NSAIDs for pain. - started IVF, dc'd. - Baseline Cr .95, GFR ~50 -continue to monitor (3) Encephalopathy: - improving Head CT and CT A/P without acute findings. Likely in setting of infection, although suspect there may be some underlying degree of dementia. Improved with antibiotics and IVF. (4) Elevated troponin: - downtrending hs Trop 70, EKG with tachycardia and PVCs, no ST segment or T wave changes. Without chest pain. Downtrending. (5) Low back pain: Inferior sacral fracture on 09/14. Continue to treat with lidocaine patches, Tylenol. (6) Thrombocytopenia: - resolved Likely due to #1, follow labs. (7) Leukopenia: - resolved Likely due to #1, follow labs. (8) Essential hypertension: Continue amlodipine and metoprolol. (9) Hypercholesterolemia: Continue statin. (10) Hypothyroidism: Continue levothyroxine. Plan - Admit to med/tele. - SCDs for VTE ppx. - Full Code. (2) NIRU (acute kidney injury): (3) Encephalopathy: (4) Hypothyroidism: (5) Hypercholesterolemia: Admission and Anticipated Discharge Date Admission Date: September 16, 2021 Results & Data Results & Data ([facility]) Vital Signs (Past 12 Hours) Vital Signs Temp Pulse Resp BP Pulse Ox O2 Del Method 09/24/21 04:52 161/80 H 09/24/21 03:48 36.4 C L 72 20 189/74 H 98 Room Air 09/24/21 00:29 159/74 H 09/23/21 23:53 36.7 C 73 20 173/81 H 93 Room Air
[2021-09-24 07:56] LABS: Hematocrit (blood only) 37.8 % (34.1-44.9); Hemoglobin 12.7 g/dl (12.0-16.0); Mean Corpuscular Hemoglobin 28.5 pg (25.0-34.0); Mean Corpuscular Hgb Conc 33.6 g/dL (32.0-36.0); Mean Corpuscular Volume 84.8 fL (80.0-100.0); Mean Platelet Volume 9.8 fL (9.4-12.3); Platelet Count 282 K/uL (130-400); RDW Coefficient of Variation 14.6 % (11.5-14.5); RDW Standard Deviation 45.1 fL (36.4-46.3); Red Blood Count 4.46 M/uL (3.93-5.22); White Blood Count 5.23 K/ul (4.8-10.8)
[2021-09-24] MEDS: ADVANCED PROBIOTIC 1250 MG CAPSULE PO SCH (08:21)
[2021-09-24] MEDS: METOPROLOL TARTRATE 50 MG TAB PO SCH (08:22)
[2021-09-24] MEDS: TOLTERODINE TARTRATE 1 MG TAB PO SCH (08:22)
[2021-09-24] MEDS: DOXYCYCLINE HYCLATE 100 MG CAP PO SCH (08:22)
[2021-09-24] MEDS: CEROVITE ADV FORMULA TAB PO SCH (08:22)
[2021-09-24] MEDS: amLODIPine BESYLATE 5 MG TAB PO SCH (08:22)
[2021-09-24] MEDS: ATORVASTATIN 10 MG TAB PO SCH (08:22)
[2021-09-24] MEDS: ASPIRIN 81 MG ECTAB PO SCH (08:22)
[2021-09-24 08:23] LABS: BUN Creatinine Ratio 21.6 (10-20); Calcium 8.4 mg/dl (8.5-10.1); Creatinine Clr Calc Pharmacy 44.3 ml/min; Est GFR (African American) 69.4 ml/min; Est GFR (Non-African American) 59.9 ml/min; Potassium 4.5 mmol/L (3.5-5.1)
--- NOTE | 2021-09-24 09:51 | Discharge Summary ---
Date of Service September 24, 2021 Admission HPI Per Admitting Provider Devora Rivera is an 86 y/o female with a PMH of hypertension, hypothyroidism, hyperlipidemia, GERD, and osteoarthritis who presents today with confusion, History is obtained from family at bedside. Patient has been increasingly more confused over the last week or so and suffered a ground level fall two days ago, for which she was seen in the ED for no 09/14 and diagnosed with an inferior sacral fracture. Since then, she has become more confused, not eating or drinking much, and was found by family today hunched over her bed saturated in urine. She complains of some mild abdominal pain, but is otherwise without co mplaints. In ED, she is hypertensive but VS otherwise wnl, stable. Labs signifcant for WBC 2.53, PLT 27, smear positive for anaplasmosis. Her BUN is also elevated at 34, Cr 1.30, trop 70.8, UA w/ > 30 epi cells, 5-10 WBCs, 3+ bacteria, granular casts, blood, and protein. Admission Exam Per Admitting Provider General: awake, alert, no apparent distress Head: Normocephalic, atraumatic ENT: PERRL, EOMI, no pharyngeal exudate, mucous membranes moist Chest: Clear to auscultation, on room air, no adventitious breath sounds Cardiac: Regular rate and rhythm, no murmur, no JVD, normal peripheral pulses, good capillary refill Abdominal: TTP in lower abdomen; NABS x 4 quadrants, soft, no rebound, guarding or tenderness Extremities: Normal inspection, no peripheral edema or erythema, calfs nontender to palpation Psych: Normal mood and affect Neuro: AAO x 3, strength intact bilaterally and rated 5/5, no motor deficits, speech is clear, no peripheral sensory deficits Skin: no rash or erythema Principal Diagnosis Anaplasmosis Discharge Exam Constitutional: WD/WN, vitals as above Eyes: PERRL, conjunctivae normal, anicteric sclerae ENMT: external ear and nose normal, oropharynx normal Neck: trachea midline, no thyromegaly Respiratory: normal respiratory effort, lungs clear to auscultation Cardiovascular: Rate/Rhythm: regular rate and regular rhythm Chest (Breasts): Chest: normal inspection of chest Gastrointestinal (Abdomen): normal bowel sounds, soft, nontender, no hepatosplenomegaly Skin: no rashes, warm and dry Discharge Data Allergies Allergy/AdvReac Type Severity Reaction Status Date / Time scallops Allergy Severe Anaphylaxis Verified 09/16/21 15:20 amoxicillin Allergy Unknown GI SYMPTOMS Verified 09/16/21 15:20 clavulanic acid Allergy Unknown GI SYMPTOMS Verified 09/16/21 15:20 Consultations 09/16/21 11:09 ED Decision to Admit Stat Ordered Studies 09/16/21 08:50 CT Abd and Pelvis [CT abd pelvis IV con only] Stat CT head/brain wo con Stat Hospital Course (1) Anaplasmosis: 86 y/o female with a PMH of hypertension, hypothyroidism, hyperlipidemia, GERD, and osteoarthritis who presents with confusion. -Patient has last dose Doxycycline 100mg BID tomorrow 09/25/21 (1) Anaplasmosis: With thrombocytopenia, leukopenia. Currently returned to wnl. Patient initially started on IV doxycycline 100 mg BID, transitioned to PO, total 10 day course (day 9), requires last doses of Doxycycline tomorrow. (2) NIRU (acute kidney injury): - resolved Likely secondary to dehydration as pt's PO intake reportedly has been low for some time. Has not been using NSAIDs for pain. Started IVF, dc'd. Baseline Cr .95, GFR ~50 (3) Encephalopathy: Head CT and CT A/P without acute findings. Likely in setting of infection, although suspect there may be some underlying degree of dementia. Improved with antibiotics and IVF. (4) Elevated troponin: - downtrending hs Trop 70, EKG with tachycardia and PVCs, no ST segment or T wave changes. Without chest pain. Downtrending. Likely from anaplasmosis (5) Low back pain: Inferior sacral fracture on 09/14. Continue to treat with lidocaine patches, Tylenol. (6) Thrombocytopenia: - resolved Likely due to #1, (7) Leukopenia: - resolved Likely due to #1, (8) Essential hypertension: Continue amlodipine and metoprolol. (9) Hypercholesterolemia: Continue statin. (10) Hypothyroidism: Continue levothyroxine. ()Weakness PT/OT ordered, recommend inpt rehab. Patient and agree to inpatient rehab, placement found in [facility]. (2) NIRU (acute kidney injury): (3) Encephalopathy: (4) Hypothyroidism: (5) Hypercholesterolemia: Total Time Total Time Spent Total Time Spent (In Minutes): see attending attestation Discharge Plan Discharge Items Patient Disposition: Transfer Inpatient Rehab Fac Reason For Visit: ANAPLASMOSIS,DEHYDRATION Discharge Diagnosis: Anaplasmosis Activity: Resume your previous activity Non-emergency contact: Primary Care Provider Call non-emergency contact if: you have any medication questions, your symptoms worsen, your pain is not controlled and you have a fever Follow-up/Referrals: Sen Hammond [Primary Care Provider] - Diet: Regular Addtl Attending Provider Instructions: 86 y/o female with a PMH of hypertension, hypothyroidism, hyperlipidemia, GERD, and osteoarthritis who presents with confusion. ()Weakness PT/OT ordered, recommend inpt rehab. Patient and agree to inpatient rehab, placement found in [facility]. (1) Anaplasmosis: With thrombocytopenia, leukopenia. Currently returned to wnl. Patient initially started on IV doxycycline 100 mg BID, transitioned to PO, total 10 day course (day 9), requires last doses of Doxycycline tomorrow. (2) NIRU (acute kidney injury): - resolved Likely secondary to dehydration as pt's PO intake reportedly has been low for some time. Has not been using NSAIDs for pain. Started IVF, dc'd. Baseline Cr .95, GFR ~50 (3) Encephalopathy: - improving Head CT and CT A/P without acute findings. Likely in setting of infection, although suspect there may be some underlying degree of dementia. Improved with antibiotics and IVF. (4) Elevated troponin: - downtrending hs Trop 70, EKG with tachycardia and PVCs, no ST segment or T wave changes. Without chest pain. Downtrending. (5) Low back pain: Inferior sacral fracture on 09/14. Continue to treat with lidocaine patches, Tylenol. (6) Thrombocytopenia: - resolved Likely due to #1, follow labs. (7) Leukopenia: - resolved Likely due to #1, follow labs. (8) Essential hypertension: Continue amlodipine and metoprolol. (9) Hypercholesterolemia: Continue statin. (10) Hypothyroidism: Continue levothyroxine. Pending Studies at Discharge: No Stand-Alone Forms: [facility] Skilled Items Patient informed of condition?: Yes DNR: No Discharge Level of Care: Acute rehab Communicable Disease: No Discharge Prognosis: Stable Lines: None Urinary Catheter: No Medications and DC Order Prescriptions: New doxycycline hyclate 100 mg Capsule 100 mg PO BID 1 Days Qty: 2 0RF Rx Instructions: Begin on 09/25/2021 Continued ascorbic acid (vitamin C) 1,000 mg tablet 1 gm PO DAILY Qty: 90 0RF atorvastatin 10 mg tablet 10 mg PO DAILY Qty: 90 0RF Rx Instructions: qam coenzyme Q10 100 mg capsule 100 mg PO DAILY Qty: 1 0RF glucosamine-chondroitin 500-400 mg tablet 1 tab PO DAILY Qty: 90 0RF Lacto.acidophilus-Bif.animalis 31 billion cell capsule 1 cap PO DAILY Qty: 90 0RF levothyroxine 125 mcg tablet 125 mcg PO DAILY Qty: 90 0RF Rx Instructions: qam metoprolol tartrate 50 mg tablet 50 mg PO DAILY Qty: 90 0RF Rx Instructions: qam Calli-D 24 Hour 180-240 mg tablet extended release 24 hr 1 tab PO DAILY PRN (Reason: seasonal allergies) Qty: 30 6RF amlodipine 5 mg Tablet 5 mg PO QAM aspirin [Sandra Low Dose Aspirin] 81 mg Tablet,Delayed Release (Dr/Ec) 81 mg PO QAM Multivitamin 50 Plus Tablet 1 tab PO DAILY tolterodine [Detrol] 1 mg tablet 1 mg PO QAM omeprazole 40 mg capsule,delayed release(DR/EC) 40 mg PO HS acetaminophen [Tylenol] 325 mg Tablet 650 mg PO Q6 PRN (Reason: Pain) turmeric root extract 500 mg Tablet 500 mg PO DAILY Discharge Orders: Discharge Order (Routine); Ordered 09/24/21 Ordered By: Joyce Tai Admission Data Admit Date/Time: 09/16/21 11:23 Attending Provider: Chasity Stinson Admit Provider: Andrzej Hurtado Primary Care Provider: Sen Hammond Other Providers: [employer] ; [facility] ; Andrzej Hurtado ; Brandon Andrews Other Interventions: Discharge Summary Assessment (RN) Last Done: 09/24/21 12:57 Supervising Physician Co-Signing Physician Notes Resident Physician Supervision Note: I independently interviewed and examined the patient and verified the rhodes history and physical, reviewed labs and image studies and agree with resident Dr. Tai findings and care plan. Resident Activity Tracking Resident Involvement: Resident Care Provided Care Provided: Adult Hospital Medicine
[2021-09-24] MEDS ORDERED: DOXYCYCLINE HYCLATE 100 MG CAP PO ONE (12:00)
== END 2021-09-24 13:09 ==
LOC: ED 08:32 → EDINP 11:23 → SUATTDRO 11:23 → INTOOBSV 11:23 → 2N 14:35

== ENCOUNTER 2024-02-17 13:23 | Inpatient (IN) ==
[2024-02-17] MEDS: OPTIRAY 320 125ml IV ONE (13:30)
[2024-02-17] MEDS: LABETALOL HCL IV 5 MG/ML 20ML IV ONE (13:41)
--- NOTE | 2024-02-17 13:46 | Emergency Department Note ---
History of Present Illness General Chief complaint: Stroke Alert Time Seen by Provider: 02/17/24 13:25 Source: family Mode of arrival: EMS Limitations: altered mental status History of Present Illness Patient is an 88-year-old female with history of Alzheimer's dementia, hypothyroidism, hypertension who presents with acute change in mental status. 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 She became aphasic at that time and EMS was called. EMS noted facial droop and left-sided weakness. At baseline patient does not have any focal deficits. Not currently on any blood thinners. Home Medications Medication Instructions Recorded Confirmed Type cholecalciferol (vitamin D3) 50 50 mcg PO DAILY 02/17/24 02/17/24 History mcg (2,000 unit) tablet (Vitamin D3) donepezil 5 mg tablet 5 mg PO DAILY 02/17/24 02/17/24 History levothyroxine 112 mcg tablet 112 mcg PO DAILY 02/17/24 02/17/24 History lisinopril 2.5 mg tablet 2.5 mg PO DAILY 02/17/24 02/17/24 History [id number] 8 mg-folic 400 1 tab PO DAILY 02/17/24 02/17/24 History mcg-K 50 mcg-lutein 300 mcg tablet (Centrum Silver Women) Allergies Allergy/AdvReac Type Severity Reaction Status Date / Time scallops Allergy Severe Anaphylaxis Verified 02/17/24 15:13 amoxicillin Allergy Unknown GI SYMPTOMS Verified 02/17/24 15:13 clavulanic acid Allergy Unknown GI SYMPTOMS Verified 02/17/24 15:13 Past Med/Surg History Problem List (Updated 02/17/24 @ 15:28 by Christopher Maldonado MD) Acute CVA (cerebrovascular accident) (Acute) Stroke-like symptoms Anaplasmosis (Acute) Subacromial impingement of left shoulder Arthritis of left acromioclavicular joint Incomplete rotator cuff tear or rupture of left shoulder, not specified as traumatic Encounter for pre-operative examination Hidradenitis (Acute) Hidradenitis (Acute) Vitamin D deficiency (Acute) Hypothyroidism (Acute) Hypercholesterolemia (Acute) Extrinsic asthma (Acute) Essential hypertension (Acute) Chronic kidney disease, stage II (mild) (Acute) Allergic rhinitis due to pollen (Acute) Allergic rhinitis due to other allergen (Acute) Allergic rhinitis due to dust (Acute) Allergic rhinitis due to animal dander (Acute) Asymptomatic proteinuria Medical History (Updated 02/17/24 @ 15:28 by Christopher Maldonado MD) Elevated troponin Leukopenia Thrombocytopenia Encephalopathy NIRU (acute kidney injury) Osteoarthritis GERD (gastroesophageal reflux disease) Hypothyroidism Borderline diabetes monitoring Hypertension Hyperlipidemia Asthma no inhalers, controlled with allergy shots Surgical History History of bilateral tubal ligation History of colonoscopy Family History Mother Gastric cancer Father Hypertension Other No family history of adverse response to anesthesia Denies family history of Chronic kidney disease (CKD) Social History Smoking Status: Unknown if ever smoked Second Hand Exposure: No; Do You Dip or Chew Tobacco: No; Hx Alcohol Use: Yes Alcohol type: wine Hx Substance Use: No Preferred Language: Bulgarian Communication Ability: Effective Storeroom Clerk Required: No Beliefs That Will Affect Care: None marital status: Current Living Situation: Spouse Current Living Situation Comment: Home with spouse How many Children do You have: 2 Feels Safe at Home: Declines to Answer Assistive Devices: None Review of Systems Unobtainable due to cognitive status Physical Exam Vital Signs Vital Signs - 24 hr 02/17/24 13:39 02/17/24 13:41 02/17/24 13:41 Temperature 36.9 C Temperature Source Oral Pulse Rate 83 83 Pulse Rate [Apical] Pulse Rate from SpO2 Sensor Respiratory Rate 20 Respiratory Effort / Characteristics Non-Labored Respiratory Depth Normal Blood Pressure 209/97 H 209/97 H 209/97 H Blood Pressure [Right Arm] Blood Pressure Mean 107 134 Blood Pressure Mean [Right Arm] Blood Pressure Position [Right Arm] Pulse Oximetry 98 Oxygen Delivery Method Room Air Sepsis Recent Fever Within 48 Hours No Sepsis New/Unexplained Change in Mental Status Yes Sepsis Action Taken by Nursing No Action Required 02/17/24 13:45 02/17/24 13:47 02/17/24 13:47 Temperature Temperature Source Pulse Rate 89 Pulse Rate [Apical] Pulse Rate from SpO2 Sensor Respiratory Rate 16 Respiratory Effort / Characteristics Respiratory Depth Blood Pressure 145/104 H 145/104 H Blood Pressure [Right Arm] Blood Pressure Mean 112 112 Blood Pressure Mean [Right Arm] Blood Pressure Position [Right Arm] Pulse Oximetry Oxygen Delivery Method Sepsis Recent Fever Within 48 Hours Sepsis New/Unexplained Change in Mental Status Sepsis Action Taken by Nursing 02/17/24 13:48 02/17/24 13:52 02/17/24 13:52 Temperature Temperature Source Pulse Rate 83 Pulse Rate [Apical] Pulse Rate from SpO2 Sensor Respiratory Rate 16 Respiratory Effort / Characteristics Respiratory Depth Blood Pressure 172/86 H 172/86 H Blood Pressure [Right Arm] Blood Pressure Mean 144 144 Blood Pressure Mean [Right Arm] Blood Pressure Position [Right Arm] Pulse Oximetry Oxygen Delivery Method Sepsis Recent Fever Within 48 Hours Sepsis New/Unexplained Change in Mental Status Sepsis Action Taken by Nursing 02/17/24 13:54 02/17/24 13:54 02/17/24 13:55 Temperature Temperature Source Pulse Rate 80 Pulse Rate [Apical] Pulse Rate from SpO2 Sensor 80 Respiratory Rate 19 Respiratory Effort / Characteristics Respiratory Depth Blood Pressure 166/91 H Blood Pressure [Right Arm] 172/86 H Blood Pressure Mean 125 Blood Pressure Mean [Right Arm] 114 Blood Pressure Position [Right Arm] Pulse Oximetry 95 Oxygen Delivery Method Sepsis Recent Fever Within 48 Hours Sepsis New/Unexplained Change in Mental Status Sepsis Action Taken by Nursing 02/17/24 13:55 02/17/24 14:00 02/17/24 14:00 Temperature Temperature Source Pulse Rate 80 Pulse Rate [Apical] Pulse Rate from SpO2 Sensor 81 Respiratory Rate 19 Respiratory Effort / Characteristics Respiratory Depth Blood Pressure 166/91 H 143/86 H Blood Pressure [Right Arm] Blood Pressure Mean 125 114 Blood Pressure Mean [Right Arm] Blood Pressure Position [Right Arm] Pulse Oximetry 97 Oxygen Delivery Method Sepsis Recent Fever Within 48 Hours Sepsis New/Unexplained Change in Mental Status Sepsis Action Taken by Nursing 02/17/24 14:00 02/17/24 14:00 02/17/24 14:00 Temperature Temperature Source Pulse Rate Pulse Rate [Apical] Pulse Rate from SpO2 Sensor Respiratory Rate Respiratory Effort / Characteristics Respiratory Depth Blood Pressure 143/86 H 143/86 H 143/86 H Blood Pressure [Right Arm] Blood Pressure Mean 114 114 114 Blood Pressure Mean [Right Arm] Blood Pressure Position [Right Arm] Pulse Oximetry Oxygen Delivery Method Sepsis Recent Fever Within 48 Hours Sepsis New/Unexplained Change in Mental Status Sepsis Action Taken by Nursing 02/17/24 14:03 02/17/24 14:05 02/17/24 14:05 Temperature Temperature Source Pulse Rate 79 Pulse Rate [Apical] Pulse Rate from SpO2 Sensor Respiratory Rate Respiratory Effort / Characteristics Respiratory Depth Blood Pressure 143/86 H Blood Pressure [Right Arm] 143/86 H Blood Pressure Mean Blood Pressure Mean [Right Arm] 105 Blood Pressure Position [Right Arm] Pulse Oximetry 94 Oxygen Delivery Method Room Air Sepsis Recent Fever Within 48 Hours Sepsis New/Unexplained Change in Mental Status Sepsis Action Taken by Nursing 02/17/24 14:13 02/17/24 14:25 02/17/24 14:40 Temperature 36.8 C 36.9 C 36.9 C Temperature Source Axillary Axillary Axillary Pulse Rate Pulse Rate [Apical] 85 77 77 Pulse Rate from SpO2 Sensor Respiratory Rate 21 23 20 Respiratory Effort / Characteristics Non-Labored Non-Labored Non-Labored Respiratory Depth Normal Normal Normal Blood Pressure Blood Pressure [Right Arm] 138/73 142/84 H 145/92 H Blood Pressure Mean Blood Pressure Mean [Right Arm] 94 103 109 Blood Pressure Position [Right Arm] Lying Sitting Pulse Oximetry 95 95 98 Oxygen Delivery Method Room Air Room Air Room Air Sepsis Recent Fever Within 48 Hours Sepsis New/Unexplained Change in Mental Status Sepsis Action Taken by Nursing 02/17/24 14:55 02/17/24 15:14 Temperature 36.8 C 36.9 C Temperature Source Axillary Axillary Pulse Rate Pulse Rate [Apical] 78 77 Pulse Rate from SpO2 Sensor Respiratory Rate 20 20 Respiratory Effort / Characteristics Non-Labored Non-Labored Respiratory Depth Normal Normal Blood Pressure Blood Pressure [Right Arm] 143/76 H 147/81 H Blood Pressure Mean Blood Pressure Mean [Right Arm] 98 103 Blood Pressure Position [Right Arm] Lying Pulse Oximetry 94 98 Oxygen Delivery Method Room Air Room Air Sepsis Recent Fever Within 48 Hours Sepsis New/Unexplained Change in Mental Status Sepsis Action Taken by Nursing See below Constitutional WD/WN, vitals as above Eyes PERRL, conjunctivae normal, anicteric sclerae ENMT external ear and nose normal, oropharynx normal Neck trachea midline, no thyromegaly Respiratory normal respiratory effort, lungs clear to auscultation Cardiovascular RRR, no murmur, no edema Chest (Breasts) normal inspection/palpation of breasts Skin no rashes, warm and dry Neurologic Awake and alert. Global aphasia. R sided neglect. 0/5 strength in the LUE and LLE. Flattening of the nasolabial fold on the left. Unable to assess sensation deficit or Course Administered Medications Discontinued Medications Tenecteplase 18 mg/ Syringe 3.6 mls @ 43.2 mls/min IV NOW ONE; Protocol Stop: 02/17/24 14:09 Last Admin: 02/17/24 14:10 Dose: 43.2 mls/min Documented By: JERRY Co-signed By: NATAN Ioversol (Optiray 320 125ml) 112 ml IV ONCE ONE Stop: 02/17/24 13:30 Last Admin: 02/17/24 13:30 Dose: 112 ml Documented By: LEONIDAS Labetalol HCl (Labetalol Hcl Iv 5 Mg/Ml 20ml) Confirm Administered Dose 5 mg IV .STK-MED ONE Stop: 02/17/24 13:41 Last Admin: 02/17/24 13:41 Dose: 10 mg Documented By: [id number] Miscellaneous (Stat Iv/Im) 1 each N/A NOW STA Stop: 02/17/24 13:59 Last Admin: 02/17/24 14:12 Dose: 1 each Documented By: JERRY Sodium Chloride (Sodium Chloride 0.9% 10ml Flush) 20 ml IV NOW STA Stop: 02/17/24 13:59 Last Admin: 02/17/24 14:12 Dose: 20 ml Documented By: JERRY Critical Care Time Critical Care Time: Yes Total Critical Care Time: 35 Medical Decision Making Differential Diagnosis CVA, intracranial bleed, encephalopathy Medical Records Attestation: I reviewed the patient's medical records. Home Medications Current Medication List: was personally reviewed by me Laboratory Data Attestation: I reviewed the patient's lab results. 02/17/24 13:40 02/17/24 13:40 Lab Results 02/17/24 02/17/24 02/17/24 Range/Units 13:38 13:40 13:51 WBC 6.63 (4.8-10.8) K/ul RBC 4.64 (4.20-5.40) M/uL Hgb 13.1 (12.0-16.0) g/dl POC Hgb 13.6 (12.0-16.0) g/dl Hct 39.9 (37.0-47.0) % POC Hct 40 (37-47) % MCV 86.0 (80.0-100.0) fL MCH 28.2 (25.0-34.0) pg MCHC 32.8 (32.0-36.0) g/dL RDW Std Deviation 44.3 (36.4-46.3) fL RDW Coeff of Veronica 14.1 (11.5-14.5) % Plt Count 230 (130-400) K/uL MPV 9.5 (9.4-12.4) fL Immature Gran % (Auto) 0.2 % Neut % (Auto) 52.6 % Lymph % (Auto) 35.1 % [place] % (Auto) 9.8 % Eos % (Auto) 1.5 % Baso % (Auto) 0.8 % Neut # (Auto) 3.49 (1.40-6.50) K/uL Lymph # (Auto) 2.33 (1.20-3.40) K/uL [place] # (Auto) 0.65 H (0.11-0.59) K/uL Eos # (Auto) 0.10 (0.00-0.50) K/uL Baso # (Auto) 0.05 (0.00-0.20) K/uL Immature Gran # (Auto) 0.01 (0.01-0.20) K/uL PT 11.0 (9.0-12.0) Seconds INR 1.0 (0.9-1.1) APTT 26 (21-31) Seconds PTT Ratio 1.0 POC Sodium 138 (135-144) mmol/L Sodium 136 (136-145) mmol/L POC Potassium 4.3 (3.3-5.0) mmol/L Potassium 4.3 (3.5-5.1) mmol/L POC Chloride 101 (101-112) mmol/L Chloride 102 (98-107) mmol/L Carbon Dioxide 28 (21-32) mmol/L POC Total CO2 26 (24-31) mmol/L Anion Gap 6 (3-11) POC Anion Gap 16.0 (16-25) mmol/L POC BUN 20 H (7-18) mg/dl BUN 20 (6-23) mg/dl Creatinine 1.02 (0.6-1.2) mg/dl POC Creatinine 1.1 (0.6-1.3) mg/dl Est Cr Clr Drug Dosing 42.0 ml/min eGFR 53.25 BUN/Creatinine Ratio 19.6 (10-20) Glucose 122 H (70-99(Fasting)) mg/dl POC Glucose 124 H (70-99) mg/dl POC Glucose (other) 119 H (70-99) mg/dl Calcium 8.9 (8.6-10.3) mg/dl POC Ioniz Calcium David 1.13 (1.12-1.32) mmol/l Magnesium 2.0 (1.7-2.4) mg/dl Total Bilirubin 0.4 (0.2-1.0) mg/dl AST 21 (13-39) U/L ALT 17 (7-52) U/L Alkaline Phosphatase 57 (34-104) U/L Troponin I High Sens 6.4 (0-14) pg/ml Total Protein 6.7 (6.0-8.3) gm/dl Albumin 3.7 (3.4-5.0) gm/dl Globulin 3.0 (2.5-4.0) gm/dl Albumin/Globulin Ratio 1.2 (0.9-2) Blood Type O Positive Antibody Screen NEGATIVE Imaging Data Radiologist's Impression: Chest X-Ray 02/17/24 13:25 XR chest 1V portable CLINICAL HISTORY: neuro deficit, acute stroke suspected TECHNIQUE: Single frontal radiograph of the chest was obtained. Comparison: Comparison is made to chest radiograph 08/23/2019 FINDINGS: No lines and tubes are seen. Calcified aortic knob is seen. The lungs are clear. No evidence of pleural effusion or pneumothorax. IMPRESSION: No acute chest disease. ACT 112: Negative or not required by law. Electronically signed by: Vikash Pablo M.D. 02/17/2024 1:[address] 02/17/24 13:25 CT head/brain wo con CLINICAL HISTORY: neuro deficit, acute stroke suspected Technique: Contiguous axial CT images of the head were acquired from the base of the skull to the vertex without intravenous contrast administration. Images were viewed in brain, subdural and bone windows. Automated dose lowering techniques and/or adjustment according to patient size were utilized for this exam. Comparison: None available at the time of this dictation. Findings: Areas of decreased attenuation are present in the periventricular and subcortical white matter bilaterally consistent with small vessel ischemic disease. Generalized cerebral atrophy with commensurate enlargement of the ventricles, sulci, and cisterns is also present. There is no acute intracranial hemorrhage or evidence of acute territorial infarction. No shift of the midline structures, mass effect, or extra-axial abnormalities are shown. Atherosclerotic calcifications are present in the intracranial segments of the internal carotid arteries. Imaged portions of the paranasal sinuses and mastoid air cells are clear. The orbits appear normal. There are no acute fractures of the calvaria or scalp swelling. Impression: No acute intracranial hemorrhage, no evidence of acute territorial infarction or other acute intracranial disease process. ACT 112: Negative or not required by law. Electronically signed by: Vikash Pablo M.D. 02/17/2024 1:56 PM Head CTA 02/17/24 13:25 CT angio head w con CLINICAL HISTORY: 88 years-old Female with neuro deficit, acute stroke suspected. COMPARISON STUDY: CT Head today TECHNIQUE: Unenhanced axial CT scan of the brain is performed. Subsequently, following the IV administration of cc of Optiray, CT angiogram of the brain was performed from the skull base to the vertex. Images are reviewed in the axial, sagittal, and coronal planes. 3-D MIPS images are created and assessed. IV contrast was administered without complication. All measurements were obtained according to NASCET criteria. A dose lowering technique was utilized adhering to the principles of ALARA. FINDINGS: CT BRAIN: Dictated separately. CT ANGIOGRAM OF THE BRAIN: The imaged distal internal carotid arteries appear patent. Areas of high-grade stenosis noted within the proximal M1 segment of the left middle cerebral artery. There is additional mild multifocal stenoses throughout the middle cerebral arteries. The anterior cerebral arteries are patent. Multifocal high- grade stenosis noted within the bilateral P1 segments of the posterior cerebral arteries. Moderate stenosis within the distal V4 segment of the left vertebral artery. The basilar artery appears patent. No dissection or arterial occlusion identified. Dural sinuses appear patent. IMPRESSION: 1. No aneurysm, dissection or arterial occlusion. 2. Areas of high-grade stenosis noted within the left MCA and bilateral posterior cerebral arteries, likely chronic. ACT 112: Negative or not required by law. The above report was generated using voice recognition software. It may contain grammatical, syntax or spelling errors. Electronically signed by: Louis Love M.D. 02/17/2024 1:55 PM Neck CTA 02/17/24 13:25 CT ANGIOGRAPHY OF THE NECK WITH CONTRAST CLINICAL HISTORY: neuro deficit, acute stroke suspected COMPARISON STUDY: No previous studies for comparison. Technique: CT angiography of the carotid and vertebral arteries was obtained using Optiray and 3D reconstruction on an independent workstation. NASCET criteria was utilized. Automated exposure control was utilized for the study. A dose lowering technique was utilized adhering to the principles of ALARA. CT DOSE: 1132.27 mGy.cm Findings: No cervical spine fractures are present. There is no cervical lymphadenopathy. No significant abnormality is identified within visualized portions of the lung apices. There is mild plaque within the aortic arch. There is mild plaque within the carotid bifurcations without stenosis. No stenosis, aneurysm or dissection within the major vessels of the neck is present. The right vertebral artery is dominant and patent. IMPRESSION: No stenosis or dissection within the bilateral common carotid, cervical internal carotid or vertebral arteries. ACT 112: Negative or not required by law. Electronically signed by: Simba Montiel M.D. 02/17/2024 1:46 PM Blood Pressure Blood Pressure Findings: Elevated blood pressure Blood Pressure Disposition: further management by hospitalist MDM Narrative Patient is an 88-year-old female who presents for evaluation of stroke. Last known well at 12 noon. Patient was immediately taken to the CT scanner prior to my evaluation. I did speak with the who notes patient's symptoms started today at lunch. She normally does walk on her own and have full function of her upper extremities. My NIHSS was 24 on intial exam. Teleneurology was made aware and evaluated patient bedside. Plan for TNK based on onset of symptoms and negative contraindications on CT imaging. Patient did require 1 dose of labetalol upon arrival for elevated blood pressure. Delayed initiation of TNK due to neurology discussion with daughter by phone per request. Patient stable for admission to ICU under hospitalist service. No blood pressure parameters noted by neurology at this stage. Will maintain blood pressure less than 185/110 until further notice. Impression & Plan Acute CVA (cerebrovascular accident) Discharge Plan Visit Data Chief Complaint: Stroke Alert ED Provider: Christopher Maldonado Discharge Problem: Acute CVA (cerebrovascular accident) Forms Stand Alone Forms: My [facility] Prescriptions Prescriptions: No Action donepezil 5 mg tablet 5 mg PO DAILY Rx Instructions: daily at 2000 lisinopril 2.5 mg tablet 2.5 mg PO DAILY Rx Instructions: daily at 0800 levothyroxine 112 mcg tablet 112 mcg PO DAILY Rx Instructions: daily at 0800 cholecalciferol (vitamin D3) [Vitamin D3] 50 mcg (2,000 unit) Tablet 50 mcg PO DAILY Rx Instructions: daily at 0800 Centrum Silver Women 8 mg iron-400 mcg-50 mcg Tablet 1 tab PO DAILY Rx Instructions: daily at 0800 Referrals Referrals: Sen Hammond [Primary Care Provider] -
--- NOTE | 2024-02-17 13:48 | CT Scan Report ---
CT ANGIOGRAPHY OF THE NECK WITH CONTRAST CLINICAL HISTORY: neuro deficit, acute stroke suspected COMPARISON STUDY: No previous studies for comparison. Technique: CT angiography of the carotid and vertebral arteries was obtained using Optiray and 3D rec onstruction on an independent workstation. NASCET criteria was utilized. Automated exposure control was utilized for the study. A dose lowering technique was utilized adhering to the principles of ALA RA. CT DOSE: 1132.27 mGy.cm Findings: No cervical spine fractures are present. There is no cervical lymphadenopathy. No significa nt abnormality is identified within visualized portions of the lung apices. There is mild plaque with in the aortic arch. There is mild plaque within the carotid bifurcations without stenosis. No stenosi s, aneurysm or dissection within the major vessels of the neck is present. The right vertebral artery is dominant and patent. IMPRESSION: No stenosis or dissection within the bilateral common carotid, cervical internal carotid or vertebral arteries. ACT 112: Negative or not required by law. Electronically signed by: Simba Montiel M.D. 02/17/2024 1:46 PM
--- NOTE | 2024-02-17 13:57 | CT Scan Report ---
CT head/brain wo con CLINICAL HISTORY: neuro deficit, acute stroke suspected Technique: Contiguous axial CT images of the head were acquired from the base of the skull to the brigitte hever without intravenous contrast administration. Images were viewed in brain, subdural and bone [facility]. Automated dose lowering techniques and/or adjustment according to patient size were utilized for this exam. Comparison: None available at the time of this dictation. Findings: Areas of decreased attenuation are present in the periventricular and subcortical white matter bilate rally consistent with small vessel ischemic disease. Generalized cerebral atrophy with commensurate e nlargement of the ventricles, sulci, and cisterns is also present. There is no acute intracranial hem orrhage or evidence of acute territorial infarction. No shift of the midline structures, mass effect, or extra-axial abnormalities are shown. Atherosclerotic calcifications are present in the intracran ial segments of the internal carotid arteries. Imaged portions of the paranasal sinuses and mastoid air cells are clear. The orbits appear normal. There are no acute fractures of the calvaria or scalp swelling. Impression: No acute intracranial hemorrhage, no evidence of acute territorial infarction or other acute intracra nial disease process. ACT 112: Negative or not required by law. Electronically signed by: Vikash Pablo M.D. 02/17/2024 1:56 PM
--- NOTE | 2024-02-17 13:57 | CT Scan Report ---
CT angio head w con CLINICAL HISTORY: 88 years-old Female with neuro deficit, acute stroke suspected. COMPARISON STUDY: CT Head today TECHNIQUE: Unenhanced axial CT scan of the brain is performed. Subsequently, following the IV adminis tration of cc of Optiray, CT angiogram of the brain was performed from the skull base to the vertex. Images are reviewed in the axial, sagittal, and coronal planes. 3-D MIPS images are created and asses sed. IV contrast was administered without complication. All measurements were obtained according to N ASCET criteria. A dose lowering technique was utilized adhering to the principles of ALARA. FINDINGS: CT BRAIN: Dictated separately. CT ANGIOGRAM OF THE BRAIN: The imaged distal internal carotid arteries appear patent. Areas of high-grade stenosis noted within the proximal M1 segment of the left middle cerebral artery. There is additional mild multifocal steno ses throughout the middle cerebral arteries. The anterior cerebral arteries are patent. Multifocal hi gh-grade stenosis noted within the bilateral P1 segments of the posterior cerebral arteries. Moderate stenosis within the distal V4 segment of the left vertebral artery. The basilar artery appears paten t. No dissection or arterial occlusion identified. Dural sinuses appear patent. IMPRESSION: 1. No aneurysm, dissection or arterial occlusion. 2. Areas of high-grade stenosis noted within the left MCA and bilateral posterior cerebral arteries, likely chronic. ACT 112: Negative or not required by law. The above report was generated using voice recognition software. It may contain grammatical, syntax o r spelling errors. Electronically signed by: Louis Love M.D. 02/17/2024 1:55 PM
[2024-02-17] MEDS ORDERED: No Aspirin within 24hrs of THROMBOLYTIC-Stroke PO SCH (14:00)
[2024-02-17] MEDS ORDERED: LABETALOL HCL IV 5 MG/ML 20ML IV ONE (14:00)
--- NOTE | 2024-02-17 14:00 | XRay Report ---
XR chest 1V portable CLINICAL HISTORY: neuro deficit, acute stroke suspected TECHNIQUE: Single frontal radiograph of the chest was obtained. Comparison: Comparison is made to chest radiograph 08/23/2019 FINDINGS: No lines and tubes are seen. Calcified aortic knob is seen. The lungs are clear. No evidence of pleur al effusion or pneumothorax. IMPRESSION: No acute chest disease. ACT 112: Negative or not required by law. Electronically signed by: Vikash Pablo M.D. 02/17/2024 1:58 PM
[2024-02-17 14:04] LABS: iSTAT Creatinine 1.1 mg/dl (0.6-1.3); iSTAT Hemoglobin 13.6 g/dl (12.0-16.0); iSTAT Ionized Calcium 1.13 mmol/l (1.12-1.32); iSTAT Potassium 4.3 mmol/L (3.3-5.0)
[2024-02-17 14:10] LABS: Basophils # (auto) 0.05 K/uL (0.00-0.20); Basophils % (auto) 0.8 %; Eosinophils % (auto) 1.5 %; Hematocrit (blood only) 39.9 % (37.0-47.0); Hemoglobin 13.1 g/dl (12.0-16.0); Immature Granulocytes # (auto) 0.01 K/uL (0.01-0.20); Immature Granulocytes % (auto) 0.2 %; Lymphocytes # (auto) 2.33 K/uL (1.20-3.40); Lymphocytes % (auto) 35.1 %; Mean Corpuscular Hemoglobin 28.2 pg (25.0-34.0); Mean Corpuscular Hgb Conc 32.8 g/dL (32.0-36.0); Mean Platelet Volume 9.5 fL (9.4-12.4); Monocytes # (auto) 0.65 K/uL (0.11-0.59); Monocytes % (auto) 9.8 %; Neutrophils # (auto) 3.49 K/uL (1.40-6.50); Neutrophils % (auto) 52.6 %; Platelet Count 230 K/uL (130-400); RDW Coefficient of Variation 14.1 % (11.5-14.5); RDW Standard Deviation 44.3 fL (36.4-46.3); Red Blood Count 4.64 M/uL (4.20-5.40); White Blood Count 6.63 K/ul (4.8-10.8)
[2024-02-17] MEDS: TENECTEPLASE 18 MG in SYRINGE 0 ML IV ONE (14:10)
[2024-02-17] MEDS: STAT IV/IM STA (14:12)
[2024-02-17] MEDS: SODIUM CHLORIDE 0.9% 10ML FLUSH IV STA (14:12)
[2024-02-17 14:25] LABS: Albumin Globulin Ratio 1.2 (0.9-2); Albumin Level 3.7 gm/dl (3.4-5.0); BUN Creatinine Ratio 19.6 (10-20); Bilirubin,Total 0.4 mg/dl (0.2-1.0); Calcium 8.9 mg/dl (8.6-10.3); Potassium 4.3 mmol/L (3.5-5.1); Total Protein 6.7 gm/dl (6.0-8.3)
[2024-02-17 14:31] LABS: Troponin I High Sensitivity 6.4 pg/ml (0-14)
[2024-02-17 14:35] LABS: Partial Thromboplastin Time 26 Seconds (21-31)
--- NOTE | 2024-02-17 14:56 | History & Physical Report ---
Date of Service February 17, 2024 Assessment & Plan (1) Stroke-like symptoms: Plan: Patient presents with left-sided facial droop, left-sided weakness, aphasia; lnk 1300 TNK given at 1410 - head CTA showing areas of high-grade stenosis within the left MCA and bilateral posterior cerebral AA, likely chronic - CT head negative - Neck CTA negative - echo 2018 without bubble study, mild LVH, mild mitral, tricuspid regurg ED course: TNK 18mg at 1410, labetalol 5mg - TNK protocol -> no needlesticks for 24 hours, all labs scheduled for 02/17 at 1500 - start ASA 81mg daily tomorrow afternoon, wait 24h after TNK - no lipid panel on file, start Atorvastatin 40 mg daily - adjust prn with lipid panel ordered - recheck LFTs in 2 weeks - Allow for permissive hypertension with goal < 180/105, can use labetalol prn - Telemetry monitoring - neurochecks per protocol - echo with bubble study ordered - lipid panel and A1C with AM labs - failed dysphagia screen -> NPO although was prior to TNK -> repeat - repeat CT in 24 hrs - admit to ICU with TNK - neurology consulted -> defer to neuro for possible MRI (2) Essential hypertension: Plan: history of essential hypertension on lisinopril Hold home blood pressure medication (3) Hypothyroidism: Plan: Recent TSH within normal limits Continue levothyroxine (4) Hypercholesterolemia: Plan: Noted history of hyperlipidemia previously on statin 10/2021 -> Currently no longer on statin Starting atorvastatin as above Lipid panel with a.m. labs Plan Chronic stable diagnoses: Alzheimer's dementia - continue donepezil urinary incontinence - baseline VTE ppx: TNK 1410 02/16, SCDs Diet: NPO, failed dysphagia screen -> screening prior to TNK, now improved symptoms, repeat dysphagia screen Code status: DNR/DNI Dispo: ICU with TNK Admission and Anticipated Discharge Date Admission Date: 02/17/24 History of Present Illness Chief Complaint: stroke alert Primary Care Provider: Sen Hammond Patient is an 88-year-old female with past medical history of Alzheimer's dementia, hypothyroidism, hypertension, GERD, osteoarthritis. She presents today as a stroke alert last known well 1300. Patient's stated that her head dropped while at lunch and she was able to get back up but was aphasic. EMS noted a left-sided facial droop and left-sided weakness. On arrival to the ED was started on TNK along with labetalol 5mg. Patient assessed at bedside with daughter and present. Patient's stated that she has been nonverbal for approximately a year along with needing assistance to ambulate with a walker. He denies any recent falls. 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 He stated that today while they were eating lunch at [facility], she just rested her head on the table and was unable to speak. He denies noticing a facial droop or weakness. EMS noted left-sided facial droop along with left-sided weakness. Her family stated that after she received TNK she seems to be greatly improving. She is able to respond to commands well and move all extremities. Her facial droop is also improving. Patient is able to nod yes and no to questions, denies dizziness. She does not use nicotine products or drink alcohol. She lives at [facility] with her . She uses a walker at baseline. She denies past history of diabetes, previous VTE, previous CVA. She does not use oxygen at baseline. She did take her home medications this morning. She wishes to be DNR/DNI at this time. Allergies Allergy/AdvReac Type Severity Reaction Status Date / Time scallops Allergy Severe Anaphylaxis Verified 02/17/24 15:13 amoxicillin Allergy Unknown GI SYMPTOMS Verified 02/17/24 15:13 clavulanic acid Allergy Unknown GI SYMPTOMS Verified 02/17/24 15:13 Home Medications Medication Instructions Recorded Confirmed Type cholecalciferol (vitamin D3) 50 50 mcg PO DAILY 02/17/24 02/17/24 History mcg (2,000 unit) tablet (Vitamin D3) donepezil 5 mg tablet 5 mg PO DAILY 02/17/24 02/17/24 History levothyroxine 112 mcg tablet 112 mcg PO DAILY 02/17/24 02/17/24 History lisinopril 2.5 mg tablet 2.5 mg PO DAILY 02/17/24 02/17/24 History [id number] 8 mg-folic 400 1 tab PO DAILY 02/17/24 02/17/24 History mcg-K 50 mcg-lutein 300 mcg tablet (Centrum Silver Women) Past Med/Surg History Problem List (Updated 02/17/24 @ 16:48 by David Dobson MD) Alzheimer's dementia Thrombolytic medication administered within last 5 days Acute CVA (cerebrovascular accident) (Acute) Stroke-like symptoms Anaplasmosis (Acute) Subacromial impingement of left shoulder Arthritis of left acromioclavicular joint Incomplete rotator cuff tear or rupture of left shoulder, not specified as traumatic Encounter for pre-operative examination Hidradenitis (Acute) Hidradenitis (Acute) Vitamin D deficiency (Acute) Hypothyroidism (Acute) Hypercholesterolemia (Acute) Extrinsic asthma (Acute) Essential hypertension (Acute) Chronic kidney disease, stage II (mild) (Acute) Allergic rhinitis due to pollen (Acute) Allergic rhinitis due to other allergen (Acute) Allergic rhinitis due to dust (Acute) Allergic rhinitis due to animal dander (Acute) Asymptomatic proteinuria Medical History (Updated 02/17/24 @ 16:48 by David Dobson MD) Elevated troponin Leukopenia Thrombocytopenia Encephalopathy NIRU (acute kidney injury) Osteoarthritis GERD (gastroesophageal reflux disease) Hypothyroidism Borderline diabetes monitoring Hypertension Hyperlipidemia Asthma no inhalers, controlled with allergy shots Surgical History History of bilateral tubal ligation History of colonoscopy Family History Mother Gastric cancer Father Hypertension Other No family history of adverse response to anesthesia Denies family history of Chronic kidney disease (CKD) Social History Smoking Status: Never smoker Second Hand Exposure: No; Do You Dip or Chew Tobacco: No; Hx Alcohol Use: No Hx Substance Use: No Preferred Language: Maori Communication Ability: Impaired Communication Ability Comment: Nonverbal, mutism with agraphia. Plant And Equipment Worker Required: No Beliefs That Will Affect Care: [employer] Beliefs: Congregational. marital status: Current Living Situation: Residential Current Living Situation Comment: Home with spouse How many Children do You have: 2 Feels Safe at Home: Yes Assistive Devices: Denture - Upper, Denture - Lower and Walker Review of Systems Review of Systems: see HPI Physical Exam Physical Exam: The patient is awake, nonverbal but responds to commands, normocephalic and atraumatic, in no acute distress. Non-toxic appearing. HEENT- EOMI, mucous membranes dry. Hearing grossly intact. Heart-normal S1 and S2. No murmurs, rubs or gallops. Lungs-clear bilaterally, no respiratory distress, no accessory muscle use. Abdomen-normal bowel sounds and soft. No ascites noted. Non-tender. Extremities- no clubbing, cyanosis, or edema. Rheumatologic-normal range of motion. Psychiatric-normal affect. Musculoskeletal: bilateral arm strength 4/5 bilateral leg strength 2/5, can move but not against gravity Neurologic: moves all extremities and awake left-sided facial droop nonverbal, baseline Results & Data Results & Data Vital Signs (Past 12 Hours) Vital Signs Temp Pulse Pulse Resp BP BP Pulse Ox 02/17/24 14:55 36.8 C 78 20 143/76 H 94 02/17/24 14:40 36.9 C 77 20 145/92 H 98 02/17/24 14:25 36.9 C 77 23 142/84 H 95 02/17/24 14:13 36.8 C 85 21 138/73 95 02/17/24 14:05 79 143/86 H 02/17/24 14:05 143/86 H 02/17/24 14:03 94 02/17/24 14:00 143/86 H 02/17/24 14:00 143/86 H 02/17/24 14:00 143/86 H 02/17/24 14:00 143/86 H 02/17/24 14:00 80 19 97 02/17/24 13:55 166/91 H 02/17/24 13:55 166/91 H 02/17/24 13:54 80 19 95 02/17/24 13:54 172/86 H 02/17/24 13:52 172/86 H 02/17/24 13:52 172/86 H 02/17/24 13:48 83 16 02/17/24 13:47 145/104 H 02/17/24 13:47 145/104 H 02/17/24 13:45 89 16 02/17/24 13:41 36.9 C 83 20 209/97 H 98 02/17/24 13:41 83 209/97 H 02/17/24 13:39 209/97 H O2 Del Method 02/17/24 14:55 Room Air 02/17/24 14:40 Room Air 02/17/24 14:25 Room Air 02/17/24 14:13 Room Air 02/17/24 14:05 02/17/24 14:05 02/17/24 14:03 Room Air 02/17/24 14:00 02/17/24 14:00 02/17/24 14:00 02/17/24 14:00 02/17/24 14:00 02/17/24 13:55 02/17/24 13:55 02/17/24 13:54 02/17/24 13:54 02/17/24 13:52 02/17/24 13:52 02/17/24 13:48 02/17/24 13:47 02/17/24 13:47 02/17/24 13:45 02/17/24 13:41 Room Air 02/17/24 13:41 02/17/24 13:39 Laboratory Results reviewed CBC, PT/INR, CMP Diagnostic Findings reviewed CXR, head CT, head and neck CTA ECG Additional Comments: NSR Code Status & VTE Plan Code Status DNR/DNI VTE Prophylaxis Plan VTE Prophylaxis will be ordered: Yes Supervising Physician Co-Signing Physician Notes Patient seen and examined, chart reviewed, case discussed with Minal Mosher PA-C and I agree with the assessment and plan as above except as otherwise noted Labs and images reviewed 88-year-old female with past medical history of hypothyroidism, hyperlipidemia, asthma, CKD who presented with left-sided facial droop, left-sided weakness, and aphasia with abrupt onset last known well 1300 hrs. Does have a hx of dementia at baseline. ER exam with L hemiparesis and neglect. Aphasia is new, not baseline. CTAhead showed high-grade stenosis of the left MCA, CThead was negative. Patient was evaluated by telestroke. TNKase was recommended and given and 1410. Patient is recommended for admission for post TNKase protocol. Devora is seen at the bedside with her and daughter present. Post TNKas e she is now starting to move her left arm spontaneously and is able to hold her left leg elevated for about 2 seconds before this drifts back to the bed. She remains nonverbal, her baseline is with dementia and nonverbal for around 8 to 9 months. Physical exam somewhat limited by dementia and engagement however strength deficits do seem to be improving post TNKase. She had 0/5 left upper and left lower extremity activation on ER of exam, is now moving her upper arm spontaneously and is able to hold her left lower extremity up with some drift. No prior history of strokes. Patient previously full code. Discussed with family with nurse at bedside. Patient's medical decision-maker is her daughter Lianna as patient's has some dementia as well. Reviewed nature of resuscitation extensively, and after discussion of her/benefits all in agreement that they would like to update patient's CODE STATUS to DNR/DNI. Patient was recommended to start aspirin 81 mg tomorrow evening 24 hours after TNKase Atorvastatin 40 mg daily, lipid panel pending No indication for neurointerventional services. Stenosis is thought to be chronic, and of note her MCA stenosis is ipsilateral to her left arm/left leg hemiparesis which is now improving post TNKase A1c pending Continue neurochecks per protocol Continue post TNKase protocol. No needlesticks. Continue labetalol for post TNKase goal parameters less than systolic [address] scan at 24 hours. Agree with above PG Care Time/CCT Total # of Minutes Spent Total Time Spent with Patient: Total time spent is greater than 50% in coordination of care (as documented) at patient's floor/unit and/or counseling patient: Coding Level of Care Code 31157 INT INP/OBS CARE MIN Diagnoses Stroke-like symptoms R29.90 Essential hypertension I10 Hypothyroidism E03.9 Hypercholesterolemia E78.00
[2024-02-17] MEDS ORDERED: PHARMACIST DISCHARGE MED REC CONSULT PRN (16:47)
--- NOTE | 2024-02-17 16:50 | Critical Care Consultation ---
Date of Consultation February 17, 2024 Assessment & Plan (1) Acute CVA (cerebrovascular accident): (2) Thrombolytic medication administered within last 5 days: (3) Alzheimer's dementia: Plan Impression: 88-year-old female with Alzheimer's dementia admitted with strokelike symptoms status post TNK administration under the direction of telestroke neurologist. Now in the ICU for monitoring. Recommendations: 1. Post TNK administration: Will continue to monitor for signs or symptoms of bleeding. As documented in peripheral [place] request, we will not pursue aggressive interventions in the event of clinical deterioration which seems reasonable given her neurocognitive function. 2. Not sure that an aggressive workup for stroke in this patient is warranted and will defer to the patient's primary admitting service. Unclear if intervention such as PT, OT, speech therapy, an echocardiogram would significantly ion exchange operator and improve this patient's quantity or quality of life. Again deferred to the primary admitting service. 3. Formal neurology consultation pending. Will defer to them as to whether or not MRI might be helpful. Will observe in the ICU for the next 24 hours at which point in time the patient can transition to the floor. Feel free to contact us with questions or concerns. History of Present Illness History of Present Illness Asked by hospitalist to assist in evaluation management this patient status post TNK administration for potential stroke. History is obtained from review of electronic medical record. The patient has advanced dementia. Is a 88-year-old female with hypertension presented with acute left-sided facial droop and left-sided weakness. She resides at [facility]. She was evaluated as a stroke alert in the emergency room and felt to be a candidate for thrombolytics by teleradiology. These were administered. It is unclear how reliable NIH stroke scale is in this patient. She had multiple chronic appearing intracranial stenoses some which would not account for her symptoms and again were felt to be more chronic in nature. She is being admitted to the ICU for observation of bleeding complications associated with systemic throm bolytic therapy. Per discussion with the family and the hospitalist, the patient is a DO NOT INTUBATE DO NOT RESUSCITATE. Allergies Allergy/AdvReac Type Severity Reaction Status Date / Time scallops Allergy Severe Anaphylaxis Verified 02/17/24 15:13 amoxicillin Allergy Unknown GI SYMPTOMS Verified 02/17/24 15:13 clavulanic acid Allergy Unknown GI SYMPTOMS Verified 02/17/24 15:13 Home Medications Medication Instructions Recorded Confirmed Type cholecalciferol (vitamin D3) 50 50 mcg PO DAILY 02/17/24 02/17/24 History mcg (2,000 unit) tablet (Vitamin D3) donepezil 5 mg tablet 5 mg PO DAILY 02/17/24 02/17/24 History levothyroxine 112 mcg tablet 112 mcg PO DAILY 02/17/24 02/17/24 History lisinopril 2.5 mg tablet 2.5 mg PO DAILY 02/17/24 02/17/24 History fbirears-kumv-serh 8 mg-folic 400 1 tab PO DAILY 02/17/24 02/17/24 History mcg-K 50 mcg-lutein 300 mcg tablet (Centrum Silver Women) Patient History Medical History (Updated 02/17/24 @ 16:48 by David Dobson MD) Elevated troponin Leukopenia Thrombocytopenia Encephalopathy NIRU (acute kidney injury) Osteoarthritis GERD (gastroesophageal reflux disease) Hypothyroidism Borderline diabetes monitoring Hypertension Hyperlipidemia Asthma no inhalers, controlled with allergy shots Surgical History History of bilateral tubal ligation History of colonoscopy Family History Mother Gastric cancer Father Hypertension Other No family history of adverse response to anesthesia Denies family history of Chronic kidney disease (CKD) Social History Smoking Status: Unknown if ever smoked Second Hand Exposure: No; Do You Dip or Chew Tobacco: No; Hx Alcohol Use: Yes Alcohol type: wine Hx Substance Use: No Preferred Language: Korean Communication Ability: Effective Shift Coordinator Required: No Beliefs That Will Affect Care: None marital status: Current Living Situation: Spouse Current Living Situation Comment: Home with spouse How many Children do You have: 2 Feels Safe at Home: Declines to Answer Assistive Devices: None Review of Systems Review of Systems: Unobtainable due to cognitive status Physical Exam Constitutional: WD/WN, vitals as above Eyes: PERRL, conjunctivae normal, anicteric sclerae ENMT: external ear and nose normal, oropharynx normal Neck: trachea midline, no thyromegaly Respiratory: normal respiratory effort, lungs clear to auscultation Cardiovascular: Rate/Rhythm: regular rate and regular rhythm Chest (Breasts): Chest: normal inspection of chest Gastrointestinal (Abdomen): normal bowel sounds, soft, nontender, no hepatosplenomegaly Skin: no rashes, warm and dry Neurologic: Underlying dementia Results & Data Results & Data Vital Signs (Past 12 Hours) Vital Signs Temp Pulse Pulse Resp BP BP Pulse Ox 02/17/24 15:57 80 18 151/103 H 97 02/17/24 15:42 73 18 156/72 H 94 02/17/24 15:27 77 18 145/94 H 95 02/17/24 15:14 36.9 C 77 20 147/81 H 98 02/17/24 14:55 36.8 C 78 20 143/76 H 94 02/17/24 14:40 36.9 C 77 20 145/92 H 98 02/17/24 14:25 36.9 C 77 23 142/84 H 95 02/17/24 14:13 36.8 C 85 21 138/73 95 02/17/24 14:05 79 143/86 H 02/17/24 14:05 143/86 H 02/17/24 14:03 94 02/17/24 14:00 143/86 H 02/17/24 14:00 143/86 H 02/17/24 14:00 143/86 H 02/17/24 14:00 143/86 H 02/17/24 14:00 80 19 97 02/17/24 13:55 166/91 H 02/17/24 13:55 166/91 H 02/17/24 13:54 80 19 95 02/17/24 13:54 172/86 H 02/17/24 13:52 172/86 H 02/17/24 13:52 172/86 H 02/17/24 13:48 83 16 02/17/24 13:47 145/104 H 02/17/24 13:47 145/104 H 02/17/24 13:45 89 16 02/17/24 13:41 36.9 C 83 20 209/97 H 98 02/17/24 13:41 83 209/97 H 02/17/24 13:39 209/97 H O2 Del Method 02/17/24 15:57 Room Air 02/17/24 15:42 Room Air 02/17/24 15:27 Room Air 02/17/24 15:14 Room Air 02/17/24 14:55 Room Air 02/17/24 14:40 Room Air 02/17/24 14:25 Room Air 02/17/24 14:13 Room Air 02/17/24 14:05 02/17/24 14:05 02/17/24 14:03 Room Air 02/17/24 14:00 02/17/24 14:00 02/17/24 14:00 02/17/24 14:00 02/17/24 14:00 02/17/24 13:55 02/17/24 13:55 02/17/24 13:54 02/17/24 13:54 02/17/24 13:52 02/17/24 13:52 02/17/24 13:48 02/17/24 13:47 02/17/24 13:47 02/17/24 13:45 02/17/24 13:41 Room Air 02/17/24 13:41 02/17/24 13:39 Critical Care Results & Data Vital Signs (Past 12 Hours) Vital Signs Temp Pulse Pulse Resp BP BP Pulse Ox 02/17/24 15:57 80 18 151/103 H 97 02/17/24 15:42 73 18 156/72 H 94 02/17/24 15:27 77 18 145/94 H 95 02/17/24 15:14 36.9 C 77 20 147/81 H 98 02/17/24 14:55 36.8 C 78 20 143/76 H 94 02/17/24 14:40 36.9 C 77 20 145/92 H 98 02/17/24 14:25 36.9 C 77 23 142/84 H 95 02/17/24 14:13 36.8 C 85 21 138/73 95 02/17/24 14:05 79 143/86 H 02/17/24 14:05 143/86 H 02/17/24 14:03 94 02/17/24 14:00 143/86 H 02/17/24 14:00 143/86 H 02/17/24 14:00 143/86 H 02/17/24 14:00 143/86 H 02/17/24 14:00 80 19 97 02/17/24 13:55 166/91 H 02/17/24 13:55 166/91 H 02/17/24 13:54 80 19 95 02/17/24 13:54 172/86 H 02/17/24 13:52 172/86 H 02/17/24 13:52 172/86 H 02/17/24 13:48 83 16 02/17/24 13:47 145/104 H 02/17/24 13:47 145/104 H 02/17/24 13:45 89 16 02/17/24 13:41 36.9 C 83 20 209/97 H 98 02/17/24 13:41 83 209/97 H 02/17/24 13:39 209/97 H O2 Del Method 02/17/24 15:57 Room Air 02/17/24 15:42 Room Air 02/17/24 15:27 Room Air 02/17/24 15:14 Room Air 02/17/24 14:55 Room Air 02/17/24 14:40 Room Air 02/17/24 14:25 Room Air 02/17/24 14:13 Room Air 02/17/24 14:05 02/17/24 14:05 02/17/24 14:03 Room Air 02/17/24 14:00 02/17/24 14:00 02/17/24 14:00 02/17/24 14:00 02/17/24 14:00 02/17/24 13:55 02/17/24 13:55 02/17/24 13:54 02/17/24 13:54 02/17/24 13:52 02/17/24 13:52 02/17/24 13:48 02/17/24 13:47 02/17/24 13:47 02/17/24 13:45 02/17/24 13:41 Room Air 02/17/24 13:41 02/17/24 13:39 Lab & Micro Results (Past 24 Hours) RBC 4.64 M/uL (4.20-5.40) 02/17/24 WBC 6.63 K/ul (4.8-10.8) 02/17/24 Hgb 13.1 g/dl (12.0-16.0) 02/17/24 Hct 39.9 % (37.0-47.0) 02/17/24 MCV 86.0 fL (80.0-100.0) 02/17/24 MCH 28.2 pg (25.0-34.0) 02/17/24 MCHC 32.8 g/dL (32.0-36.0) 02/17/24 RDW Standard Deviation 44.3 fL (36.4-46.3) 02/17/24 RDW Coefficient of Variation 14.1 % (11.5-14.5) 02/17/24 Plt Count 230 K/uL (130-400) 02/17/24 MPV 9.5 fL (9.4-12.4) 02/17/24 Neutrophils (%) (Auto) 52.6 % 02/17/24 Lymphocytes (%) (Auto) 35.1 % 02/17/24 Monocytes # (Auto) 0.65 K/uL (0.11-0.59) H 02/17/24 Eosinophils # (Auto) 0.10 K/uL (0.00-0.50) 02/17/24 Immature Granulocyte % (Auto) 0.2 % 02/17/24 Neutrophils # (Auto) 3.49 K/uL (1.40-6.50) 02/17/24 Lymphocytes # (Auto) 2.33 K/uL (1.20-3.40) 02/17/24 Monocytes # (Auto) 0.65 K/uL (0.11-0.59) H 02/17/24 Eosinophils # (Auto) 0.10 K/uL (0.00-0.50) 02/17/24 Basophils # (Auto) 0.05 K/uL (0.00-0.20) 02/17/24 Immature Granulocyte # (Auto) 0.01 K/uL (0.01-0.20) 4 Na 136 mmol/L (136-145) 02/17/24 K 4.3 mmol/L (3.5-5.1) 02/17/24 Cl 102 mmol/L (98-107) 02/17/24 CO2 28 mmol/L (21-32) 02/17/24 Anion Gap 6 (3-11) 02/17/24 BUN 20 mg/dl (6-23) 02/17/24 Creatinine 1.02 mg/dl (0.6-1.2) 02/17/24 BUN/Creatinine Ratio 19.6 (10-20) 02/17/24 Glu 122 mg/dl (70-99(Fasting)) H 02/17/24 Ca 8.9 mg/dl (8.6-10.3) 02/17/24 Total Bilirubin 0.4 mg/dl (0.2-1.0) 02/17/24 AST 21 U/L (13-39) 02/17/24 ALT 17 U/L (7-52) 02/17/24 Alkaline Phosphatase 57 U/L (34-104) 02/17/24 TP 6.7 gm/dl (6.0-8.3) 02/17/24 Albumin 3.7 gm/dl (3.4-5.0) 02/17/24 Globulin 3.0 gm/dl (2.5-4.0) 02/17/24 Albumin/Globulin Ratio 1.2 (0.9-2) 02/17/24 Mg 2.0 mg/dl (1.7-2.4) 02/17/24 13:40 Calcium Level 8.9 mg/dl (8.6-10.3) 02/17/24 13:40 Prothromb Time International Ratio 1.0 (0.9-1.1) 02/17/24 13:4 0 Diagnostic Findings (Past 24 Hours) Chest X-Ray 02/17/24 13:25 XR chest 1V portable CLINICAL HISTORY: neuro deficit, acute stroke suspected TECHNIQUE: Single frontal radiograph of the chest was obtained. Comparison: Comparison is made to chest radiograph 08/23/2019 FINDINGS: No lines and tubes are seen. Calcified aortic knob is seen. The lungs are clear. No evidence of pleural effusion or pneumothorax. IMPRESSION: No acute chest disease. ACT 112: Negative or not required by law. Electronically signed by: Vikash Pablo M.D. 02/17/2024 1:[address] 02/17/24 13:25 CT head/brain wo con CLINICAL HISTORY: neuro deficit, acute stroke suspected Technique: Contiguous axial CT images of the head were acquired from the base of the skull to the vertex without intravenous contrast administration. Images were viewed in brain, subdural and bone windows. Automated dose lowering techniques and/or adjustment according to patient size were utilized for this exam. Comparison: None available at the time of this dictation. Findings: Areas of decreased attenuation are present in the periventricular and subcorti darrin white matter bilaterally consistent with small vessel ischemic disease. Generalized cerebral atrophy with commensurate enlargement of the ventricles, sulci, and cisterns is also present. There is no acute intracranial hemorrhage or evidence of acute territorial infarction. No shift of the midline structures, mass effect, or extra-axial abnormalities are shown. Atherosclerotic calcifications are present in the intracranial segments of the internal carotid arteries. Imaged portions of the paranasal sinuses and mastoid air cells are clear. The orbits appear normal. There are no acute fractures of the calvaria or scalp swelling. Impression: No acute intracranial hemorrhage, no evidence of acute territorial infarction or other acute intracranial disease process. ACT 112: Negative or not required by law. Electronically signed by: Vikash Pablo M.D. 02/17/2024 1:56 PM Head CTA 02/17/24 13:25 CT angio head w con CLINICAL HISTORY: 88 years-old Female with neuro deficit, acute stroke suspected. COMPARISON STUDY: CT Head today TECHNIQUE: Unenhanced axial CT scan of the brain is performed. Subsequently, following the IV administration of cc of Optiray, CT angiogram of the brain was performed from the skull base to the vertex. Images are reviewed in the axial, sagittal, and coronal planes. 3-D MIPS images are created and assessed. IV contrast was administered without complication. All measurements were obtained according to NASCET criteria. A dose lowering technique was utilized adhering to the principles of ALARA. FINDINGS: CT BRAIN: Dictated separately. CT ANGIOGRAM OF THE BRAIN: The imaged distal internal carotid arteries appear patent. Areas of high-grade stenosis noted within the proximal M1 segment of the left middle cerebral artery. There is additional mild multifocal stenoses throughout the middle cerebral arteries. The anterior cerebral arteries are patent. Multifocal high- grade stenosis noted within the bilateral P1 segments of the posterior cerebral arteries. Moderate stenosis within the distal V4 segment of the left vertebral artery. The basilar artery appears patent. No dissection or arterial occlusion identified. Dural sinuses appear patent. IMPRESSION: 1. No aneurysm, dissection or arterial occlusion. 2. Areas of high-grade stenosis noted within the left MCA and bilateral poste rior cerebral arteries, likely chronic. ACT 112: Negative or not required by law. The above report was generated using voice recognition software. It may contain grammatical, syntax or spelling errors. Electronically signed by: Louis Love M.D. 02/17/2024 1:55 PM Neck CTA 02/17/24 13:25 CT ANGIOGRAPHY OF THE NECK WITH CONTRAST CLINICAL HISTORY: neuro deficit, acute stroke suspected COMPARISON STUDY: No previous studies for comparison. Technique: CT angiography of the carotid and vertebral arteries was obtained using Optiray and 3D reconstruction on an independent workstation. NASCET criteria was utilized. Automated exposure control was utilized for the study. A dose lowering technique was utilized adhering to the principles of ALARA. CT DOSE: 1132.27 mGy.cm Findings: No cervical spine fractures are present. There is no cervical lymph adenopathy. No significant abnormality is identified within visualized portions of the lung apices. There is mild plaque within the aortic arch. There is mild plaque within the carotid bifurcations without stenosis. No stenosis, aneurysm or dissection within the major vessels of the neck is present. The right vertebral artery is dominant and patent. IMPRESSION: No stenosis or dissection within the bilateral common carotid, cervical internal carotid or vertebral arteries. ACT 112: Negative or not required by law. Electronically signed by: Simba Montiel M.D. 02/17/2024 1:46 PM RT Ventilator Mngmt (Last Documented) Ventilator Ordered Settings Respiratory Rate 18 02/17/24 15:57 Ventilator - PT Measurements Respiratory Rate 18 Coding Level of Care Code 29904 IN/OBS CONSULT LVL 4,60M Diagnoses Acute CVA (cerebrovascular accident) I63.9 Thrombolytic medication administered within last 5 days Z78.9 Alzheimer's dementia G30.9; F02.80
[2024-02-17] MEDS: ICU Protocol for HYPERglycemia SCH (21:00)
[2024-02-18 03:59] LABS: Basophils # (auto) 0.05 K/uL (0.00-0.20); Basophils % (auto) 0.7 %; Eosinophils # (auto) 0.14 K/uL (0.00-0.50); Hematocrit (blood only) 40.5 % (37.0-47.0); Immature Granulocytes # (auto) 0.01 K/uL (0.01-0.20); Immature Granulocytes % (auto) 0.1 %; Lymphocytes # (auto) 1.82 K/uL (1.20-3.40); Lymphocytes % (auto) 26.6 %; Mean Corpuscular Hemoglobin 27.6 pg (25.0-34.0); Mean Corpuscular Hgb Conc 32.1 g/dL (32.0-36.0); Mean Platelet Volume 9.6 fL (9.4-12.4); Monocytes # (auto) 0.86 K/uL (0.11-0.59); Monocytes % (auto) 12.6 %; Neutrophils # (auto) 3.95 K/uL (1.40-6.50); Platelet Count 220 K/uL (130-400); RDW Coefficient of Variation 14.2 % (11.5-14.5); RDW Standard Deviation 44.6 fL (36.4-46.3); Red Blood Count 4.71 M/uL (4.20-5.40); White Blood Count 6.83 K/ul (4.8-10.8)
[2024-02-18 04:15] LABS: BUN Creatinine Ratio 18.3 (10-20); Calcium 9.1 mg/dl (8.6-10.3); Phosphorus 4.3 mg/dl (2.5-4.9)
--- NOTE | 2024-02-18 05:48 | Electrocardiogram Report ---
Test Reason : Blood Pressure : */* mmHG Vent. Rate : 97 BPM Atrial Rate : 97 BPM P-R Int : 146 ms QRS Dur : 66 ms QT Int : 354 ms P-R-T Axes : 72 39 48 degrees QTcB Int : 449 ms Poor data quality, interpretation may be adversely affected Sinus rhythm with Premature atrial complexes Nonspecific ST and T wave abnormality Abnormal ECG When compared with ECG of 16-Sep-2021 08:47, No significant change Confirmed by Dinesh Anguiano ([id number]) on 02/18/2024 5:47:27 AM Referred By: REFERRED SELF Confirmed By: Dinesh Anguiano
[2024-02-18] MEDS: LEVOTHYROXINE SODIUM 112 MCG TABLET PO SCH (06:33)
[2024-02-18] MEDS: ATORVASTATIN 40 MG TAB PO SCH (09:15)
--- NOTE | 2024-02-18 09:15 | Critical Care Progress Note ---
Date of Service February 18, 2024 Assessment & Plan (1) Acute CVA (cerebrovascular accident): (2) Thrombolytic medication administered within last 5 days: (3) Alzheimer's dementia: Plan Impression: 88-year-old female with Alzheimer's dementia admitted with strokelike symptoms status post TNK administration under the direction of telestroke neurologist. Now in the ICU for monitoring. Recommendations: 1. Post TNK administration: Neurochecks per unit protocol. Follow-up CT, however MRI could be obtained in the same timeframe which would negate the need for follow-up CT scan. She appears to be back at her baseline at this time. NIH scale of 5 down from 24. Unfortunately, the patient is nonverbal which makes communication difficult. She does move all extremities equally and with equal strength bilaterally this morning. She does answer simple questions with nodding her head. Will await neurology recommendations. Will require closer blood pressure control as she has been moderately hypertensive requiring IV Lopressor dosing. Will add an additional dose of IV Lopressor 10 mg and restart her p.o. medications since she is pass swallow study 2. PT/OT/TOP LIFT COMPRESSOR per post TNKase protocol. Defer to primary service for ongoing management. 3. Formal neurology consultation pending. Thank you for allowing us to participate in the care of this pleasant patient. Patient reaches her 24-hour sindy, she is stable for downgrade from the ICU (1410). Admission and Anticipated Discharge Date Admission Date: February 17, 2024 Supervising Physician Co-Signing Physician Notes Patient seen and examined. EMR reviewed. Discussed on multidisciplinary rounds. Agree with assessment plan as noted by YOLY. Subjective No adverse events overnight. Patient largely unable to contribute to HPI secondary to baseline patient with dementia. Review of Systems Review of Systems: Unable to contribute. Physical Exam Physical Exam: VITAL SIGNS - Vital signs and nursing notes were reviewed. GENERAL - 88-year-old female appearing her stated age who is in no acute distress. Communicates well with provider and answers questions appropriately. SKIN - Without rashes. HEAD - NC/AT. EYES - PERRL with EOMI bilaterally. Sclera anicteric. NOSE - Midline and without cyanosis. No epistaxis or purulent drainage noted. MOUTH/OROPHARYNX - Without perioral cyanosis. NECK - Neck with FROM. LUNGS - Chest wall symmetric without accessory muscle use, intercostals retractions, or central cyanosis. Normal vesicular breath sounds CTA B/L. No wheezes, rales, or rhonchi appreciated. CARDIAC - RRR with S1/S2. No murmur, rubs, or gallops appreciated. ABDOMEN - Abdominal contour flat without pulsations or visible masses. BS normoactive all four quadrants. No tenderness, palpable masses, hepatosplenomegaly, or ascites noted. EXTREMITIES - No clubbing or peripheral cyanosis. No pretibial edema present. +3/5 radial and dorsalis pedis pulses palpated throughout. +5/5 strength noted in UE/LE bilaterally. NEUROLOGIC - Cranial nerves II through XII grossly intact. Sensory intact to light touch throughout. Patellar reflexes +2/4. PSYCH - A&Ox3 and cooperates fully with examiner. Pt is very pleasant and interacts well with examiner. Results & Data Results & Data Vital Signs (Past 12 Hours) Vital Signs Temp Pulse Pulse Resp BP BP Pulse Ox 02/18/24 08:10 36.7 C 70 18 157/76 H 95 02/18/24 07:23 80 17 96 02/18/24 07:17 172/80 H 02/18/24 07:17 172/80 H 02/18/24 07:14 78 22 97 02/18/24 07:10 36.6 C 81 23 172/80 H 96 02/18/24 07:09 156/120 H 02/18/24 07:09 156/120 H 02/18/24 07:05 76 19 97 02/18/24 07:02 160/92 H 02/18/24 07:01 85 02/18/24 06:56 83 16 96 02/18/24 06:50 83 19 96 02/18/24 06:47 172/108 H 02/18/24 06:44 78 19 97 02/18/24 06:35 80 19 97 02/18/24 06:32 171/91 H 02/18/24 06:32 171/91 H 02/18/24 06:29 84 20 96 02/18/24 06:20 68 18 95 02/18/24 06:17 169/103 H 02/18/24 06:17 169/103 H 02/18/24 06:11 73 20 97 02/18/24 06:10 37.1 C 82 19 171/91 H 97 02/18/24 06:02 68 21 95 02/18/24 06:02 190/74 H 02/18/24 06:02 190/74 H 02/18/24 06:02 190/74 H 02/18/24 05:50 79 19 95 02/18/24 05:47 171/88 H 02/18/24 05:38 75 17 97 02/18/24 05:32 165/80 H 02/18/24 05:32 165/80 H 02/18/24 05:32 165/80 H 02/18/24 05:32 68 16 97 02/18/24 05:21 142/75 H 02/18/24 05:10 37.2 C 64 17 142/75 H 95 02/18/24 05:05 69 20 96 02/18/24 05:02 160/83 H 02/18/24 05:02 160/83 H 02/18/24 05:02 160/83 H 02/18/24 04:59 65 17 95 02/18/24 04:47 168/83 H 02/18/24 04:45 70 19 96 02/18/24 04:42 84 20 98 02/18/24 04:39 92 H 18 97 02/18/24 04:32 160/74 H 02/18/24 04:27 69 19 95 02/18/24 04:21 67 18 95 02/18/24 04:17 144/77 H 02/18/24 04:17 144/77 H 02/18/24 04:17 144/77 H 02/18/24 04:17 144/77 H 02/18/24 04:15 68 17 95 02/18/24 04:10 37.1 C 72 19 160/74 H 96 02/18/24 04:06 178/85 H 02/18/24 03:10 37.1 C 74 21 164/74 H 97 02/18/24 02:10 36.9 C 75 19 176/77 H 97 02/18/24 01:10 37 C 68 18 155/70 H 97 02/18/24 00:10 37.2 C 74 17 166/78 H 99 02/18/24 00:00 70 02/17/24 23:10 37.1 C 70 20 160/82 H 96 02/17/24 22:56 150/79 H 02/17/24 22:54 69 18 96 02/17/24 22:10 37.1 C 71 18 176/96 H 97 02/17/24 21:40 37.1 C 78 22 169/93 H 97 O2 Del Method 02/18/24 08:10 Room Air 02/18/24 07:23 02/18/24 07:17 02/18/24 07:17 02/18/24 07:14 02/18/24 07:10 Room Air 02/18/24 07:09 02/18/24 07:09 02/18/24 07:05 02/18/24 07:02 02/18/24 07:01 02/18/24 06:56 02/18/24 06:50 02/18/24 06:47 02/18/24 06:44 02/18/24 06:35 02/18/24 06:32 02/18/24 06:32 02/18/24 06:29 02/18/24 06:20 02/18/24 06:17 02/18/24 06:17 02/18/24 06:11 02/18/24 06:10 Room Air 02/18/24 06:02 02/18/24 06:02 02/18/24 06:02 02/18/24 06:02 02/18/24 05:50 02/18/24 05:47 02/18/24 05:38 02/18/24 05:32 02/18/24 05:32 02/18/24 05:32 02/18/24 05:32 02/18/24 05:21 02/18/24 05:10 Room Air 02/18/24 05:05 02/18/24 05:02 02/18/24 05:02 02/18/24 05:02 02/18/24 04:59 02/18/24 04:47 02/18/24 04:45 02/18/24 04:42 02/18/24 04:39 02/18/24 04:32 02/18/24 04:27 02/18/24 04:21 02/18/24 04:17 02/18/24 04:17 02/18/24 04:17 02/18/24 04:17 02/18/24 04:15 02/18/24 04:10 Room Air 02/18/24 04:06 02/18/24 03:10 Room Air 02/18/24 02:10 Room Air 02/18/24 01:10 Room Air 02/18/24 00:10 Room Air 02/18/24 00:00 02/17/24 23:10 Room Air 02/17/24 22:56 02/17/24 22:54 02/17/24 22:10 Room Air 02/17/24 21:40 Room Air Coding Level of Care Code 87779 SUB INP/OBS CARE MIN Diagnoses Acute CVA (cerebrovascular accident) I63.9 Thrombolytic medication administered within last 5 days Z78.9 Alzheimer's dementia G30.9; F02.80
[2024-02-18] MEDS: LABETALOL HCL IV 5 MG/ML 20ML IV PRN (09:21)
--- NOTE | 2024-02-18 09:43 | Hospitalist Progress Note ---
Date of Service February 18, 2024 Assessment & Plan (1) Stroke-like symptoms: Plan: -Acute CVA -s/p TNK administration -repeat CT pending today -neurology consult pending -awaiting neuorlogy input to consider MRI -echo ordered -PT/OT - head CTA showing areas of high-grade stenosis within the left MCA and bilateral posterior cerebral AA, likely chronic - CT head negative - Neck CTA negative -restart asa after CT completed today and shows no evidence of bleeding -atorvastatin (2) Essential hypertension: Plan: -history of essential hypertension on lisinopril -labatelol prn (3) Hypothyroidism: Plan: -Continue levothyroxine (4) Hypercholesterolemia: Plan: -Starting atorvastatin as above Plan VTE ppx: TNK 1410 02/16, SCDs Diet: NPO, failed dysphagia screen -> screening prior to TNK, now improved symptoms, repeat dysphagia screen Code status: DNR/DNI Dispo: ICU with TNK, monitor for next 24hrs, then patient can be transferred to the floor Admission and Anticipated Discharge Date Admission Date: February 17, 2024 Subjective No events overnight, pt resting comfortably in bed. Unable to speak, but following commands. Review of Systems Review of Systems: CONST: Negative for fever, body aches and chills. HENT: Negative for neck pain/stiffness, headache, congestion, sore throat, swelling. EYES: Negative for discharge/pain or vision changes. RESP: Negative for cough/hemoptysis and shortness of breath. CV: Negative chest pain, difficulty breathing, palpitations. ABD: Negative pain, nausea, vomiting. : Negative increase frequency, dysuria, blood in urine or stool. MUSC: Negative for muscle aches, edema. SKIN: Negative rash, lesions/sores. NEURO: Negative headache, dizziness, Left sided weakness, aphasia. Physical Exam Physical Exam: GENERAL APPEARANCE NAD, activity normal for age, well developed/ well nourished, no cyanosis, pallor, or diaphoresis. EYES lids/conjunctiva normal. EARS/NOSE/THROAT Mucous membranes moist, nares normal, lips/teeth normal uvula midline without oral pharyngeal erythema, exudate or swelling TMs normal bilaterally. No lymphangitis/lymphedema. HEAD/NECK normocephalic atraumatic, no facial trauma, neck is supple. RESPIRATORY respiratory effort normal, speaks in full sentences, no tripod position, no accessory muscle use. Lungs clear to auscultation without rhonchi, wheezes, rales CARDIAC Regular rate and rhythm, no edema. ABDOMINAL Soft, ND/NT. No evidence of fluid wave. No pulsatile masses on exam, rebound tenderness, Cabello sign or pain over Mcburney's point. MUSCLES/EXTREMITIES No abnormal range of motion, no swelling. SKIN Warm, pink and dry. No rashes, dermatoses, petechiae or lesions. NEUROLOGICAL Aphasia. Normal level of consciousness. Gait and coordination are normal. 3/5 strength left extremity PSYCH Normal mood and affect. Judgement/competence is appropriate Results & Data Results & Data Vital Signs (Past 12 Hours) Vital Signs Temp Pulse Pulse Resp BP BP Pulse Ox 02/18/24 09:21 83 179/114 H 02/18/24 09:10 36.8 C 79 20 179/114 H 95 02/18/24 08:10 36.7 C 70 18 157/76 H 95 02/18/24 07:23 80 17 96 02/18/24 07:17 172/80 H 02/18/24 07:17 172/80 H 02/18/24 07:14 78 22 97 02/18/24 07:10 36.6 C 81 23 172/80 H 96 02/18/24 07:09 156/120 H 02/18/24 07:09 156/120 H 02/18/24 07:05 76 19 97 02/18/24 07:02 160/92 H 02/18/24 07:01 85 02/18/24 06:56 83 16 96 02/18/24 06:50 83 19 96 02/18/24 06:47 172/108 H 02/18/24 06:44 78 19 97 02/18/24 06:35 80 19 97 02/18/24 06:32 171/91 H 02/18/24 06:32 171/91 H 02/18/24 06:29 84 20 96 02/18/24 06:20 68 18 95 02/18/24 06:17 169/103 H 02/18/24 06:17 169/103 H 02/18/24 06:11 73 20 97 02/18/24 06:10 37.1 C 82 19 171/91 H 97 02/18/24 06:02 68 21 95 02/18/24 06:02 190/74 H 02/18/24 06:02 190/74 H 02/18/24 06:02 190/74 H 02/18/24 05:50 79 19 95 02/18/24 05:47 171/88 H 02/18/24 05:38 75 17 97 02/18/24 05:32 165/80 H 02/18/24 05:32 165/80 H 02/18/24 05:32 165/80 H 02/18/24 05:32 68 16 97 02/18/24 05:21 142/75 H 02/18/24 05:10 37.2 C 64 17 142/75 H 95 02/18/24 05:05 69 20 96 02/18/24 05:02 160/83 H 02/18/24 05:02 160/83 H 02/18/24 05:02 160/83 H 02/18/24 04:59 65 17 95 02/18/24 04:47 168/83 H 02/18/24 04:45 70 19 96 02/18/24 04:42 84 20 98 02/18/24 04:39 92 H 18 97 02/18/24 04:32 160/74 H 02/18/24 04:27 69 19 95 02/18/24 04:21 67 18 95 02/18/24 04:17 144/77 H 02/18/24 04:17 144/77 H 02/18/24 04:17 144/77 H 02/18/24 04:17 144/77 H 02/18/24 04:15 68 17 95 02/18/24 04:10 37.1 C 72 19 160/74 H 96 02/18/24 04:06 178/85 H 02/18/24 03:10 37.1 C 74 21 164/74 H 97 02/18/24 02:10 36.9 C 75 19 176/77 H 97 02/18/24 01:10 37 C 68 18 155/70 H 97 02/18/24 00:10 37.2 C 74 17 166/78 H 99 02/18/24 00:00 70 02/17/24 23:10 37.1 C 70 20 160/82 H 96 02/17/24 22:56 150/79 H 02/17/24 22:54 69 18 96 02/17/24 22:10 37.1 C 71 18 176/96 H 97 02/17/24 21:40 37.1 C 78 22 169/93 H 97 O2 Del Method 02/18/24 09:21 02/18/24 09:10 Room Air 02/18/24 08:10 Room Air 02/18/24 07:23 02/18/24 07:17 02/18/24 07:17 02/18/24 07:14 02/18/24 07:10 Room Air 02/18/24 07:09 02/18/24 07:09 02/18/24 07:05 02/18/24 07:02 02/18/24 07:01 02/18/24 06:56 02/18/24 06:50 02/18/24 06:47 02/18/24 06:44 02/18/24 06:35 02/18/24 06:32 02/18/24 06:32 02/18/24 06:29 02/18/24 06:20 02/18/24 06:17 02/18/24 06:17 02/18/24 06:11 02/18/24 06:10 Room Air 02/18/24 06:02 02/18/24 06:02 02/18/24 06:02 02/18/24 06:02 02/18/24 05:50 02/18/24 05:47 02/18/24 05:38 02/18/24 05:32 02/18/24 05:32 02/18/24 05:32 02/18/24 05:32 02/18/24 05:21 02/18/24 05:10 Room Air 02/18/24 05:05 02/18/24 05:02 02/18/24 05:02 02/18/24 05:02 02/18/24 04:59 02/18/24 04:47 02/18/24 04:45 02/18/24 04:42 02/18/24 04:39 02/18/24 04:32 02/18/24 04:27 02/18/24 04:21 02/18/24 04:17 02/18/24 04:17 02/18/24 04:17 02/18/24 04:17 02/18/24 04:15 02/18/24 04:10 Room Air 02/18/24 04:06 02/18/24 03:10 Room Air 02/18/24 02:10 Room Air 02/18/24 01:10 Room Air 02/18/24 00:10 Room Air 02/18/24 00:00 02/17/24 23:10 Room Air 02/17/24 22:56 02/17/24 22:54 02/17/24 22:10 Room Air 02/17/24 21:40 Room Air PG Care Time/CCT Total # of Minutes Spent Total Time Spent with Patient: Total time spent is greater than 50% in coordination of care (as documented) at patient's floor/unit and/or counseling patient: Coding Level of Care Code 39947 SUB INP/OBS CARE 2/35MIN Diagnoses Stroke-like symptoms R29.90 Essential hypertension I10 Hypothyroidism E03.9 Hypercholesterolemia E78.00
[2024-02-18] MEDS: LABETALOL HCL IV 5 MG/ML 20ML IV STA (10:13)
--- NOTE | 2024-02-18 10:32 | Neurology Consultation ---
Date of Consultation February 18, 2024 Assessment & Plan (1) Acute CVA (cerebrovascular accident): (2) Middle cerebral artery stenosis: (3) Alzheimer's dementia: Plan Probable acute right hemispheric stroke presenting with left hemiparesis, resolved post TNK administration. Multifocal intracranial stenosis, left MCA and bilateral director emergency department. History notable for Alzheimer's dementia with associated aphasia. Brain MRI as ordered. May restart aspirin 24 hours after administration of TNK. Would consider dual antiplatelet therapy, aspirin and Plavix for 21 days, followed by discontinuation of Plavix and resumption of aspirin monotherapy. Follow-up with results of lipid panel. Consider starting a statin, goal LDL 70 or less. Follow-up with results of echocardiogram. Consider obtaining mobile cardiac outpatient telemetry. If patient is found to have atrial fibrillation, would consider starting an anticoagulant. Allow for permissive hypertension acutely. Labetalol as ordered. Lisinopril as ordered. Continue with donepezil as ordered. Please call with any questions. History of Present Illness Reason for Consultation: Stroke, post TNK Requesting Physician: Bernardino Attending Physician: Ehsan Miles MD History of Present Illness The patient is an 88-year-old female who presented to the emergency department yesterday with acute onset left hemiparesis beginning around noon. Past medical history is notable for Alzheimer's dementia with associated aphasia. She did have a telestroke consultation and was administered TNK. Her left-sided weakness has resolved. This morning, the patient continues to exhibit a global aphasia which I suspect is at her baseline. She seems to have limited language comprehension and is able to follow only simple commands. See examination below for additional details. Allergies Allergy/AdvReac Type Severity Reaction Status Date / Time scallops Allergy Severe Anaphylaxis Verified 02/17/24 15:13 amoxicillin Allergy Unknown GI SYMPTOMS Verified 02/17/24 15:13 clavulanic acid Allergy Unknown GI SYMPTOMS Verified 02/17/24 15:13 Home Medications Medication Instructions Recorded Confirmed Type cholecalciferol (vitamin D3) 50 50 mcg PO DAILY 02/17/24 02/17/24 History mcg (2,000 unit) tablet (Vitamin D3) donepezil 5 mg tablet 5 mg PO DAILY 02/17/24 02/17/24 History levothyroxine 112 mcg tablet 112 mcg PO DAILY 02/17/24 02/17/24 History lisinopril 2.5 mg tablet 2.5 mg PO DAILY 02/17/24 02/17/24 History ooebzzks-vaiu-qmse 8 mg-folic 400 1 tab PO DAILY 02/17/24 02/17/24 History mcg-K 50 mcg-lutein 300 mcg tablet (Centrum Silver Women) Patient History Medical History (Updated 02/18/24 @ 10:52 by Christopher Zhou MD) Elevated troponin Leukopenia Thrombocytopenia Encephalopathy NIRU (acute kidney injury) Osteoarthritis GERD (gastroesophageal reflux disease) Hypothyroidism Borderline diabetes monitoring Hypertension Hyperlipidemia Asthma no inhalers, controlled with allergy shots Surgical History History of bilateral tubal ligation History of colonoscopy Family History Mother Gastric cancer Father Hypertension Other No family history of adverse response to anesthesia Denies family history of Chronic kidney disease (CKD) Social History Smoking Status: Never smoker Second Hand Exposure: No; Do You Dip or Chew Tobacco: No; Hx Alcohol Use: No Hx Substance Use: No Preferred Language: Cymro Communication Ability: Impaired Communication Ability Comment: Nonverbal, mutism with agraphia. Physician Credentialing Specialist Required: No Beliefs That Will Affect Care: Muslim Muslim Beliefs: Christianity. marital status: Current Living Situation: Residential Current Living Situation Comment: Home with spouse How many Children do You have: 2 Feels Safe at Home: Yes Assistive Devices: Denture - Upper, Denture - Lower and Walker Review of Systems Review of Systems: Unobtainable due to cognitive status Exam (Neuro) Constitutional: well developed and + frail appearing; no acute distress Eyes: normal visual watters by confrontation, PERRL and EOM intact bilaterally; no nystagmus Neurologic: Cortical Function: Motor Apraxia (Right hand) Attention: Span Intact Speech Aphasia: Aphasia (Nonverbal, limited language comprehension) Cranial Nerves: Normal II, III, IV, , V, VII, VIII, IX, X, XI and XII Motor Strength: Normal Lower Extremities and Normal Upper Extremities; negative Hemiparesis Motor Tone: Normal Lower Extremities and Normal Upper Extremities Muscle Bulk/Involuntary Movements: No Involuntary Movements; negative Muscle Atrophy Sensation: Light Touch Intact and Pain/Temperature Intact Coordination: Finger-Nose Abnormal Deep Tendon Reflexes: Rt Triceps: 2+, Lt Triceps: 2+, Rt Biceps: 2+, Lt Biceps: 2+, Rt Brachioradialis: 2+, Lt Brachioradialis: 2+, Rt Patellar: 2+, Lt Patellar: 2+, Rt Ankle: 1+ and Lt Ankle: 1+ Special Tests: Babinski Present (right) Details: Patient exhibits a global aphasia, expressive greater than receptive, able to follow very simple commands, was able to show me her left thumb, she put up 2 fingers to command, closed her eyes to command, was able to touch my left index finger to command, but was unable to do so with the right hand due to right upper extremity apraxia. Results & Data Vital Signs (Past 12 Hours) Vital Signs Temp Pulse Pulse Resp BP BP Pulse Ox 02/18/24 10:13 80 200/124 H 02/18/24 10:10 36.6 C 78 20 178/95 H 95 02/18/24 10:04 200/124 H 02/18/24 09:51 77 21 96 02/18/24 09:48 188/112 H 02/18/24 09:48 188/112 H 02/18/24 09:36 78 200/124 H 02/18/24 09:30 67 22 95 02/18/24 09:21 83 179/114 H 02/18/24 09:18 179/114 H 02/18/24 09:18 83 24 97 02/18/24 09:12 77 20 97 02/18/24 09:10 36.8 C 79 20 179/114 H 95 02/18/24 08:17 157/76 H 02/18/24 08:17 157/76 H 02/18/24 08:15 68 20 95 02/18/24 08:10 36.7 C 70 18 157/76 H 95 02/18/24 08:09 71 17 94 02/18/24 07:23 80 17 96 02/18/24 07:17 172/80 H 02/18/24 07:17 172/80 H 02/18/24 07:14 78 22 97 02/18/24 07:10 36.6 C 81 23 172/80 H 96 02/18/24 07:09 156/120 H 02/18/24 07:09 156/120 H 12/19/24 07:05 76 19 97 02/18/24 07:02 160/92 H 02/18/24 07:01 85 02/18/24 06:56 83 16 96 02/18/24 06:50 83 19 96 02/18/24 06:47 172/108 H 02/18/24 06:44 78 19 97 02/18/24 06:35 80 19 97 02/18/24 06:32 171/91 H 02/18/24 06:32 171/91 H 02/18/24 06:29 84 20 96 02/18/24 06:20 68 18 95 02/18/24 06:17 169/103 H 02/18/24 06:17 169/103 H 02/18/24 06:11 73 20 97 02/18/24 06:10 37.1 C 82 19 171/91 H 97 02/18/24 06:02 68 21 95 02/18/24 06:02 190/74 H 02/18/24 06:02 190/74 H 02/18/24 06:02 190/74 H 02/18/24 05:50 79 19 95 02/18/24 05:47 171/88 H 02/18/24 05:38 75 17 97 02/18/24 05:32 165/80 H 02/18/24 05:32 165/80 H 02/18/24 05:32 165/80 H 02/18/24 05:32 68 16 97 02/18/24 05:21 142/75 H 02/18/24 05:10 37.2 C 64 17 142/75 H 95 02/18/24 05:05 69 20 96 02/18/24 05:02 160/83 H 02/18/24 05:02 160/83 H 02/18/24 05:02 160/83 H 02/18/24 04:59 65 17 95 02/18/24 04:47 168/83 H 02/18/24 04:45 70 19 96 02/18/24 04:42 84 20 98 02/18/24 04:39 92 H 18 97 02/18/24 04:32 160/74 H 02/18/24 04:27 69 19 95 02/18/24 04:21 67 18 95 02/18/24 04:17 144/77 H 02/18/24 04:17 144/77 H 02/18/24 04:17 144/77 H 02/18/24 04:17 144/77 H 02/18/24 04:15 68 17 95 02/18/24 04:10 37.1 C 72 19 160/74 H 96 02/18/24 04:06 178/85 H 02/18/24 03:10 37.1 C 74 21 164/74 H 97 02/18/24 02:10 36.9 C 75 19 176/77 H 97 02/18/24 01:10 37 C 68 18 155/70 H 97 02/18/24 00:10 37.2 C 74 17 166/78 H 99 02/18/24 00:00 70 02/17/24 23:10 37.1 C 70 20 160/82 H 96 02/17/24 22:56 150/79 H 02/17/24 22:54 69 18 96 O2 Del Method 02/18/24 10:13 02/18/24 10:10 Room Air 02/18/24 10:04 02/18/24 09:51 02/18/24 09:48 02/18/24 09:48 02/18/24 09:36 02/18/24 09:30 02/18/24 09:21 02/18/24 09:18 02/18/24 09:18 02/18/24 09:12 02/18/24 09:10 Room Air 02/18/24 08:17 02/18/24 08:17 02/18/24 08:15 02/18/24 08:10 Room Air 02/18/24 08:09 02/18/24 07:23 02/18/24 07:17 02/18/24 07:17 02/18/24 07:14 02/18/24 07:10 Room Air 02/18/24 07:09 02/18/24 07:09 02/18/24 07:05 02/18/24 07:02 02/18/24 07:01 02/18/24 06:56 02/18/24 06:50 02/18/24 06:47 02/18/24 06:44 02/18/24 06:35 02/18/24 06:32 02/18/24 06:32 02/18/24 06:29 02/18/24 06:20 02/18/24 06:17 02/18/24 06:17 02/18/24 06:11 02/18/24 06:10 Room Air 02/18/24 06:02 02/18/24 06:02 02/18/24 06:02 02/18/24 06:02 02/18/24 05:50 02/18/24 05:47 02/18/24 05:38 02/18/24 05:32 02/18/24 05:32 02/18/24 05:32 02/18/24 05:32 02/18/24 05:21 02/18/24 05:10 Room Air 02/18/24 05:05 02/18/24 05:02 02/18/24 05:02 02/18/24 05:02 02/18/24 04:59 02/18/24 04:47 02/18/24 04:45 02/18/24 04:42 02/18/24 04:39 02/18/24 04:32 02/18/24 04:27 02/18/24 04:21 02/18/24 04:17 02/18/24 04:17 02/18/24 04:17 02/18/24 04:17 02/18/24 04:15 02/18/24 04:10 Room Air 02/18/24 04:06 02/18/24 03:10 Room Air 02/18/24 02:10 Room Air 02/18/24 01:10 Room Air 02/18/24 00:10 Room Air 02/18/24 00:00 02/17/24 23:10 Room Air 02/17/24 22:56 02/17/24 22:54 Laboratory Results WBC 6.83, hemoglobin 13.0, hematocrit 40.5, platelet count 220, sodium 140, potassium 4.0, BUN 19, creatinine 1.04, glucose 95, magnesium 2.0, AST 21, ALT [address] of the head reveals atrophy and small vessel ischemic disease. CTA of the head and neck revealed a high-grade left MCA stenosis and bilateral [employer] E[employer]ER stenosis. I independently reviewed these images. Electrocardiogram reveals a sinus rhythm with PACs. Coding Level of Care Code 20024 INT INP/OBS CARE MIN Diagnoses Acute CVA (cerebrovascular accident) I63.9 Middle cerebral artery stenosis I66.09 Alzheimer's dementia G30.9; F02.80 Time Spent (min) 80 Comment Total time includes patient contact, chart review, counseling, note preparation
[2024-02-18] MEDS: lisinopril 2.5 MG TAB PO SCH (10:48)
--- NOTE | 2024-02-18 12:34 | XCELERA ---
[id number] [id number]
--- NOTE | 2024-02-18 14:15 | Magnetic Resonance Report ---
MR brain wo con HISTORY: 88 years-old Female cva acute stroke like symptoms COMPARISON: Head CT 02/17/2024 TECHNIQUE: Multiplanar multisequence brain was obtained without IV contrast FINDINGS: No acute or subacute territorial infarct. There is an ill-defined focus of slightly increased diffusi on-weighted signal in the periventricular right frontal lobe dwyer radiata on image 14 series 8 with intermediate signal on ADC map. Midline structures appear unremarkable. Degenerative changes of the cervical spine. The pain is posterior to the dens. Study is motion degraded. No acute intracranial hemorrhage, midline shift, abnormal extra-axial collection, hydrocephalus or in tra-axial mass. Cerebral venous sinuses and major arterial flow voids appear patent as visualized. Th e skull, orbits and soft tissues are unremarkable. Prior bilateral lens repair. Mastoid air cells are clear. Involutional changes with extensive and confluent T2/FLAIR hyperintense foci throughout the w vincent matter. Unchanged ventriculomegaly, likely secondary to the volume loss. IMPRESSION: 1. Motion degraded exam with ill-defined equivocal 9 mm acute versus subacute lacunar infarct within the periventricular right frontal lobe dwyer radiata. 2. No territorial infarct. 3. Involutional changes with extensive T2/FLAIR hyperintense foci suggestive of advanced chronic micr ovascular ischemic disease. ACT 112: Negative or not required by law. The above report was generated using voice recognition software. It may contain grammatical, syntax o r spelling errors. Electronically signed by: Louis Love M.D. 02/18/2024 2:12 PM
[2024-02-18 15:09] LABS: Basophils # (auto) 0.04 K/uL (0.00-0.20); Basophils % (auto) 0.5 %; Eosinophils # (auto) 0.08 K/uL (0.00-0.50); Eosinophils % (auto) 1.1 %; Hematocrit (blood only) 40.5 % (37.0-47.0); Hemoglobin 13.3 g/dl (12.0-16.0); Immature Granulocytes # (auto) 0.03 K/uL (0.01-0.20); Immature Granulocytes % (auto) 0.4 %; Lymphocytes # (auto) 1.63 K/uL (1.20-3.40); Lymphocytes % (auto) 21.5 %; Mean Corpuscular Hemoglobin 28.2 pg (25.0-34.0); Mean Corpuscular Hgb Conc 32.8 g/dL (32.0-36.0); Mean Platelet Volume 9.5 fL (9.4-12.4); Monocytes # (auto) 0.64 K/uL (0.11-0.59); Monocytes % (auto) 8.4 %; Neutrophils # (auto) 5.16 K/uL (1.40-6.50); Neutrophils % (auto) 68.1 %; Platelet Count 217 K/uL (130-400); RDW Coefficient of Variation 14.1 % (11.5-14.5); RDW Standard Deviation 44.4 fL (36.4-46.3); Red Blood Count 4.71 M/uL (4.20-5.40); White Blood Count 7.58 K/ul (4.8-10.8)
[2024-02-18 15:21] LABS: BUN Creatinine Ratio 18.4 (10-20); Calcium 8.9 mg/dl (8.6-10.3); Chol HDL Ratio 5.2 (0-5); Creatinine Clr Calc Pharmacy 35.4 ml/min; Potassium 4.2 mmol/L (3.5-5.1)
[2024-02-18 17:01] LABS: Estimated Average Glucose 114 mg/dl; Hemoglobin A1C 5.6 % (4.5-5.6)
[2024-02-18] MEDS: DONEPEZIL HCL 5 MG TAB PO SCH (20:35)
[2024-02-19 07:42] LABS: Basophils # (auto) 0.05 K/uL (0.00-0.20); Basophils % (auto) 0.8 %; Eosinophils # (auto) 0.16 K/uL (0.00-0.50); Eosinophils % (auto) 2.5 %; Hematocrit (blood only) 39.9 % (37.0-47.0); Hemoglobin 13.3 g/dl (12.0-16.0); Immature Granulocytes # (auto) 0.02 K/uL (0.01-0.20); Immature Granulocytes % (auto) 0.3 %; Lymphocytes # (auto) 1.43 K/uL (1.20-3.40); Lymphocytes % (auto) 22.6 %; Mean Corpuscular Hemoglobin 28.5 pg (25.0-34.0); Mean Corpuscular Hgb Conc 33.3 g/dL (32.0-36.0); Mean Corpuscular Volume 85.6 fL (80.0-100.0); Mean Platelet Volume 9.2 fL (9.4-12.4); Monocytes # (auto) 0.69 K/uL (0.11-0.59); Monocytes % (auto) 10.9 %; Neutrophils # (auto) 3.98 K/uL (1.40-6.50); Neutrophils % (auto) 62.9 %; Platelet Count 212 K/uL (130-400); RDW Coefficient of Variation 14.1 % (11.5-14.5); RDW Standard Deviation 44.6 fL (36.4-46.3); Red Blood Count 4.66 M/uL (4.20-5.40); White Blood Count 6.33 K/ul (4.8-10.8)
[2024-02-19 08:01] LABS: BUN Creatinine Ratio 19.2 (10-20); Calcium 8.9 mg/dl (8.6-10.3); Creatinine Clr Calc Pharmacy 36.1 ml/min; Magnesium 1.9 mg/dl (1.7-2.4); Phosphorus 4.3 mg/dl (2.5-4.9)
[2024-02-19] MEDS: ASPIRIN 81 MG ECTAB PO SCH (08:49)
[2024-02-19] MEDS: CLOPIDOGREL BISULFATE 75 MG TAB PO SCH (08:49)
--- NOTE | 2024-02-19 10:34 | Hospitalist Progress Note ---
Date of Service February 19, 2024 Assessment & Plan (1) Stroke-like symptoms: Plan: -Acute CVA -s/p TNK administration -repeat CT negative for bleed -neurology consult appreciated -MRI shows motion degraded exam with ill-defined equivocal 9 mm acute versus s ubacute lacunar infarct within the periventricular right frontal lobe dwyer radiata. -echo ordered -PT/OT- pt will likely need rehab -asa and plavix started as per neurology recommendations -atorvastatin (2) Essential hypertension: Plan: -history of essential hypertension on lisinopril -labatelol prn (3) Hypothyroidism: Plan: -Continue levothyroxine (4) Hypercholesterolemia: Plan: -Starting atorvastatin as above Plan VTE ppx: TNK 1410 02/16, SCDs Diet: NPO, failed dysphagia screen -> screening prior to TNK, now improved symptoms, repeat dysphagia screen Code status: DNR/DNI Dispo: D/C planning to rehab in next 24-48hrs. Admission and Anticipated Discharge Date Admission Date: February 17, 2024 Subjective Pt seen eating her breakfast this morning. Still with aphasia. Review of Systems Review of Systems: CONST: Negative for fever, body aches and chills. HENT: Negative for neck pain/stiffness, headache, congestion, sore throat, swelling. EYES: Negative for discharge/pain or vision changes. RESP: Negative for cough/hemoptysis and shortness of breath. CV: Negative chest pain, difficulty breathing, palpitations. ABD: Negative pain, nausea, vomiting. : Negative increase frequency, dysuria, blood in urine or stool. MUSC: Negative for muscle aches, edema. SKIN: Negative rash, lesions/sores. NEURO: Negative headache, dizziness, Left sided weakness, aphasia. Physical Exam Physical Exam: GENERAL APPEARANCE NAD, activity normal for age, well developed/ well nourished, no cyanosis, pallor, or diaphoresis. EYES lids/conjunctiva normal. EARS/NOSE/THROAT Mucous membranes moist, nares normal, lips/teeth normal uvula midline without oral pharyngeal erythema, exudate or swelling TMs normal bilaterally. No lymphangitis/lymphedema. HEAD/NECK normocephalic atraumatic, no facial trauma, neck is supple. RESPIRATORY respiratory effort normal, speaks in full sentences, no tripod position, no accessory muscle use. Lungs clear to auscultation without rhonchi, wheezes, rales CARDIAC Regular rate and rhythm, no edema. ABDOMINAL Soft, ND/NT. No evidence of fluid wave. No pulsatile masses on exam, rebound tenderness, Cabello sign or pain over Mcburney's point. MUSCLES/EXTREMITIES No abnormal range of motion, no swelling. SKIN Warm, pink and dry. No rashes, dermatoses, petechiae or lesions. NEUROLOGICAL Speech is clear and appropriate. Normal level of consciousness. Gait and coordination are normal. Left sided weakness 3/5, aphasia. PSYCH Normal mood and affect. Judgement/competence is appropriate Results & Data Results & Data Vital Signs (Past 12 Hours) Vital Signs Temp Pulse Pulse Resp BP Pulse Ox O2 Del Method 02/19/24 09:24 Room Air 02/19/24 07:53 36.8 C 66 16 176/88 H 96 Room Air 02/19/24 05:53 61 02/19/24 00:53 36.8 C 67 20 163/78 H 96 Room Air 02/19/24 00:00 73 PG Care Time/CCT Total # of Minutes Spent Total Time Spent with Patient: Total time spent is greater than 50% in coordination of care (as documented) at patient's floor/unit and/or counseling patient: Coding Level of Care Code 32853 SUB INP/OBS CARE 2/35MIN Diagnoses Stroke-like symptoms R29.90 Essential hypertension I10 Hypothyroidism E03.9 Hypercholesterolemia E78.00
--- NOTE | 2024-02-19 14:32 | Pharmacy Report ---
- Date of Service February 19, 2024 - Pharmacy CVA/TIA Medication Review Medications to Prevent Stroke handout has been added to the patients discharge packet. Antiplatelet(s) * aspirin 81 mg daily * plavix 75 mg daily Cholesterol * High intensity statin: atorvastatin 40 mg daily DVT Prophylaxis * SCD knee Therapeutic Anticoagulation * Cardiac monitoring recommended to be done outpatient to see if atrial fibrillation Type 2 Diabetes * Patient does not have T2DM
[2024-02-19] MEDS: ACETAMINOPHEN 325 MG TAB PO PRN (18:08)
[2024-02-20 09:56] LABS: Basophils # (auto) 0.04 K/uL (0.00-0.20); Basophils % (auto) 0.4 %; Eosinophils # (auto) 0.11 K/uL (0.00-0.50); Eosinophils % (auto) 1.2 %; Hematocrit (blood only) 40.8 % (37.0-47.0); Hemoglobin 13.5 g/dl (12.0-16.0); Immature Granulocytes # (auto) 0.03 K/uL (0.01-0.20); Immature Granulocytes % (auto) 0.3 %; Lymphocytes # (auto) 1.39 K/uL (1.20-3.40); Lymphocytes % (auto) 15.5 %; Mean Corpuscular Hemoglobin 27.8 pg (25.0-34.0); Mean Corpuscular Hgb Conc 33.1 g/dL (32.0-36.0); Mean Corpuscular Volume 84.1 fL (80.0-100.0); Mean Platelet Volume 9.7 fL (9.4-12.4); Monocytes # (auto) 0.59 K/uL (0.11-0.59); Monocytes % (auto) 6.6 %; Neutrophils # (auto) 6.81 K/uL (1.40-6.50); Platelet Count 221 K/uL (130-400); RDW Coefficient of Variation 14.1 % (11.5-14.5); RDW Standard Deviation 43.5 fL (36.4-46.3); Red Blood Count 4.85 M/uL (4.20-5.40); White Blood Count 8.97 K/ul (4.8-10.8)
[2024-02-20 10:11] LABS: BUN Creatinine Ratio 25.7 (10-20); Calcium 8.9 mg/dl (8.6-10.3); Creatinine Clr Calc Pharmacy 34.5 ml/min; Magnesium 1.9 mg/dl (1.7-2.4); Phosphorus 3.8 mg/dl (2.5-4.9)
--- NOTE | 2024-02-20 10:53 | Hospitalist Progress Note ---
Date of Service February 20, 2024 Assessment & Plan (1) Stroke-like symptoms: Plan: -Acute CVA -s/p TNK administration -repeat CT negative for bleed -neurology consult appreciated -MRI shows motion degraded exam with ill-defined equivocal 9 mm acute versus s ubacute lacunar infarct within the periventricular right frontal lobe dwyer radiata. -echo ordered -PT/OT- pt will likely need rehab -asa and plavix started as per neurology recommendations -atorvastatin -Pt stable to be transferred to rehab once bed available. (2) Essential hypertension: Plan: -history of essential hypertension on lisinopril -labatelol prn (3) Hypothyroidism: Plan: -Continue levothyroxine (4) Hypercholesterolemia: Plan: -Starting atorvastatin as above Plan VTE ppx: TNK 1410 02/16, SCDs Diet: regular diet Code status: DNR/DNI Dispo: D/C planning to rehab once bed available. Admission and Anticipated Discharge Date Admission Date: February 17, 2024 Subjective Pt seen eating her breakfast this morning. Still with aphasia. Review of Systems Review of Systems: CONST: Negative for fever, body aches and chills. HENT: Negative for neck pain/stiffness, headache, congestion, sore throat, swelling. EYES: Negative for discharge/pain or vision changes. RESP: Negative for cough/hemoptysis and shortness of breath. CV: Negative chest pain, difficulty breathing, palpitations. ABD: Negative pain, nausea, vomiting. : Negative increase frequency, dysuria, blood in urine or stool. MUSC: Negative for muscle aches, edema. SKIN: Negative rash, lesions/sores. NEURO: Negative headache, dizziness, Left sided weakness, aphasia. Physical Exam Physical Exam: GENERAL APPEARANCE NAD, activity normal for age, well developed/ well nourished, no cyanosis, pallor, or diaphoresis. EYES lids/conjunctiva normal. EARS/NOSE/THROAT Mucous membranes moist, nares normal, lips/teeth normal uvula midline without oral pharyngeal erythema, exudate or swelling TMs normal bilaterally. No lymphangitis/lymphedema. HEAD/NECK normocephalic atraumatic, no facial trauma, neck is supple. RESPIRATORY respiratory effort normal, speaks in full sentences, no tripod position, no accessory muscle use. Lungs clear to auscultation without rhonchi, wheezes, rales CARDIAC Regular rate and rhythm, no edema. ABDOMINAL Soft, ND/NT. No evidence of fluid wave. No pulsatile masses on exam, rebound tenderness, Cabello sign or pain over Mcburney's point. MUSCLES/EXTREMITIES No abnormal range of motion, no swelling. SKIN Warm, pink and dry. No rashes, dermatoses, petechiae or lesions. NEUROLOGICAL Speech is clear and appropriate. Normal level of consciousness. Gait and coordination are normal. Left sided weakness 3/5, aphasia. PSYCH Normal mood and affect. Judgement/competence is appropriate Results & Data Results & Data Vital Signs (Past 12 Hours) Vital Signs Temp Pulse Pulse Resp BP BP BP 02/20/24 10:22 02/20/24 08:21 68 165/84 H 02/20/24 07:54 78 193/91 H 02/20/24 07:44 36.7 C 70 16 194/91 H 02/20/24 05:44 71 02/20/24 04:40 73 163/76 H 02/20/24 02:18 36.4 C L 70 18 190/95 H 02/20/24 01:03 02/20/24 00:00 71 02/19/24 23:01 36.3 C L 70 18 193/91 H Pulse Ox O2 Del Method 02/20/24 10:22 Room Air 02/20/24 08:21 02/20/24 07:54 02/20/24 07:44 94 Room Air 02/20/24 05:44 02/20/24 04:40 02/20/24 02:18 96 Room Air 02/20/24 01:03 Room Air 02/20/24 00:00 02/19/24 23:01 97 Room Air PG Care Time/CCT Total # of Minutes Spent Total Time Spent with Patient: Total time spent is greater than 50% in coordination of care (as documented) at patient's floor/unit and/or counseling patient: Coding Level of Care Code 25089 SUB INP/OBS CARE 2/35MIN Diagnoses Stroke-like symptoms R29.90 Essential hypertension I10 Hypothyroidism E03.9 Hypercholesterolemia E78.00
[2024-02-21 07:27] VITALS: RESP 16; TEMP 97.9
[2024-02-21 09:02] LABS: Hematocrit (blood only) 38.1 % (37.0-47.0); Hemoglobin 12.7 g/dl (12.0-16.0); Mean Corpuscular Hemoglobin 28.4 pg (25.0-34.0); Mean Corpuscular Hgb Conc 33.3 g/dL (32.0-36.0); Mean Corpuscular Volume 85.2 fL (80.0-100.0); Platelet Count 221 K/uL (130-400); RDW Standard Deviation 44.1 fL (36.4-46.3); Red Blood Count 4.47 M/uL (4.20-5.40); White Blood Count 6.48 K/ul (4.8-10.8)
[2024-02-21 09:24] LABS: Calcium 8.8 mg/dl (8.6-10.3); Creatinine Clr Calc Pharmacy 38.2 ml/min; Potassium 4.2 mmol/L (3.5-5.1)
--- NOTE | 2024-02-21 09:59 | Discharge Summary ---
Discharge Summary Date of Service February 21, 2024 Principal Dx & Hospital Course #1 = Principal Diagnosis (1) Stroke-like symptoms: -Acute CVA -s/p TNK administration -repeat CT negative for bleed -neurology consult appreciated -MRI shows motion degraded exam with ill-defined equivocal 9 mm acute versus subacute lacunar infarct within the periventricular right frontal lobe dwyer radiata. -echo ordered -PT/OT- pt will likely need rehab -asa and plavix started as per neurology recommendations -atorvastatin -Pt stable to be transferred to rehab once bed available. (2) Essential hypertension: -history of essential hypertension on lisinopril -labatelol prn (3) Hypothyroidism: -Continue levothyroxine (4) Hypercholesterolemia: -Starting atorvastatin as above Plan VTE ppx: TNK 1410 02/16, SCDs Diet: regular diet Code status: DNR/DNI Dispo: D/C planning to rehab once bed available. Admission HPI Per Admitting Provider Patient is an 88-year-old female with past medical history of Alzheimer's dementia, hypothyroidism, hypertension, GERD, osteoarthritis. She presents today as a stroke alert last known well 1300. Patient's stated that her head dropped while at lunch and she was able to get back up but was aphasic. EMS noted a left-sided facial droop and left-sided weakness. On arrival to the ED was started on TNK along with labetalol 5mg. Patient assessed at bedside with daughter and present. Patient's stated that she has been nonverbal for approximately a year along with needing assistance to ambulate with a walker. He denies any recent falls. 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 He stated that today while they were eating lunch at [facility], she just rested her head on the table and was unable to speak. He denies noticing a facial droop or weakness. EMS noted left-sided facial droop along with left-sided weakness. Her family stated that after she received TNK she seems to be greatly improving. She is able to respond to commands well and move all extremities. Her facial droop is also improving. Patient is able to nod yes and no to questions, denies dizziness. She does not use nicotine products or drink alcohol. She lives at [facility] living with her . She uses a walker at baseline. She denies past history of diabetes, previous VTE, previous CVA. She does not use oxygen at baseline. She did take her home medications this morning. She wishes to be DNR/DNI at this time. Discharge Exam GENERAL APPEARANCE NAD, activity normal for age, well developed/ well nourished, no cyanosis, pallor, or diaphoresis. EYES lids/conjunctiva normal. EARS/NOSE/THROAT Mucous membranes moist, nares normal, lips/teeth normal uvula midline without oral pharyngeal erythema, exudate or swelling TMs normal bilaterally. No lymphangitis/lymphedema. HEAD/NECK normocephalic atraumatic, no facial trauma, neck is supple. RESPIRATORY respiratory effort normal, speaks in full sentences, no tripod position, no accessory muscle use. Lungs clear to auscultation without rhonchi, wheezes, rales CARDIAC Regular rate and rhythm, no edema. ABDOMINAL Soft, ND/NT. No evidence of fluid wave. No pulsatile masses on exam, rebound tenderness, Cabello sign or pain over Mcburney's point. MUSCLES/EXTREMITIES No abnormal range of motion, no swelling. SKIN Warm, pink and dry. No rashes, dermatoses, petechiae or lesions. NEUROLOGICAL Speech is clear and appropriate. Normal level of consciousness. Gait and coordination are normal. Left sided weakness 3/5, aphasia. PSYCH Normal mood and affect. Judgement/competence is appropriate Discharge Plan Discharge Items Patient Disposition: Transfer Senior Living Fac Reason For Visit: POST TNKASE, L HEMIPARESIS Discharge Diagnosis: CVA Activity: Resume your previous activity Non-emergency contact: Primary Care Provider Call non-emergency contact if: you have any medication questions Follow-up/Referrals: Sen Hammond [Primary Care Provider] - Diet: Regular Addtl Attending Provider Instructions: Follow up with neurology in 2 weeks Pending Studies at Discharge: No Stand-Alone Forms: My Shoulder Tap, Medications to Prevent Stroke Skilled Items Patient informed of condition?: Yes DNR: No Discharge Level of Care: Skilled Communicable Disease: No Discharge Prognosis: Stable Lines: None Urinary Catheter: No Medications and DC Order Prescriptions: New atorvastatin 40 mg Tablet 40 mg PO QAM Qty: 30 0RF clopidogrel 75 mg Tablet 75 mg PO QAM Qty: 21 0RF aspirin 81 mg Tablet,Delayed Release (Dr/Ec) 81 mg PO QAM Qty: 30 0RF Continued donepezil 5 mg tablet 5 mg PO DAILY Rx Instructions: daily at 2000 lisinopril 2.5 mg tablet 2.5 mg PO DAILY Rx Instructions: daily at 0800 levothyroxine 112 mcg tablet 112 mcg PO DAILY Rx Instructions: daily at 0800 cholecalciferol (vitamin D3) [Vitamin D3] 50 mcg (2,000 unit) Tablet 50 mcg PO DAILY Rx Instructions: daily at 0800 Centrum Silver Women 8 mg iron-400 mcg-50 mcg Tablet 1 tab PO DAILY Rx Instructions: daily at 0800 Discharge Orders: Discharge Order (Routine); Ordered 02/21/24 Ordered By: Ehsan Miles Admission Data Admit Date/Time: 02/17/24 15:53 Attending Provider: Ehsan Miles Admit Provider: Delonte Lebron Primary Care Provider: Sen Hammond Other Providers: Delonte Lebron; David Dobson; Christopher Zhou; [facility]; [place] Hospital Stay Data Consultations 02/17/24 15:23 ED Decision to Admit Stat 02/17/24 16:47 Consult Seam Feller Routine Consult Neurology Routine Diagnostic Imagining Performed 02/17/24 13:25 CT angio head w con Stat CT angio neck with con Stat CT head/brain wo con Stat 02/18/24 00:00 MR brain wo con Routine Pending Results Patient Have Any Pending Studies at Discharge: No Discharge Instructions Given to Patient (Per Discharging Provider) Follow up with neurology in 2 weeks Total Time Total Time Spent Total Time Spent (In Minutes): 50 Coding Level of Care Code 88469 INP/OBS DISCH >30 MIN Diagnoses Stroke-like symptoms R29.90 Essential hypertension I10 Hypothyroidism E03.9 Hypercholesterolemia E78.00
[2024-02-21 11:39] VITALS: O2SAT 94
[2024-02-21 11:42] VITALS: BP 194/91; PULSE 76
--- NOTE | 2024-02-22 14:37 | Coding Query ---
CODING QUERY To promote full compliance with coding requirements relating to patient care, provider participation is requested in all cases of clinical coder uncertainty. Please assist us with the question(s) below: Coding Question(s): There is documentation of Acute CVA, and documentation on the Critical Care Consultation of, "She had multiple chronic appearing intracranial stenoses some which would not account for her symptoms and again were felt to be more chronic in nature", and documentation on the Neurology Consultation of, "Middle cerebral artery stenosis", and, "Probable acute right hemispheric stroke presenting with left hemiparesis, resolved post TNK administration. Multifocal intracranial stenosis, left MCA and bilateral power lineworker", and, "Brain MRI as ordered", and the Discharge Summary documents, "-Acute CVA -s/p TNK administration -repeat CT negative for bleed -neurology consult appreciated -MRI shows motion degraded exam with ill-defined equivocal 9 mm acute versus subacute lacunar infarct within the periventricular right frontal lobe dwyer radiata", Please specify below, in your clinical opinion, regarding the Acute CVA: ( x ) Acute CVA is likely lacunar infarct, not due to MCA Stenosis ( ) Acute CVA is likely right hemispheric stroke due to MCA Stenosis and CELLULOID TRIMMER Stenosis ( ) Acute CVA is Other: Please Specify ( ) Acute CVA is of uknown likely origin Physician's Response(s): acute CVA likely lacunar infarct not due to MCA or CELLULOID TRIMMER stenosis Thank you Bing Srivastava Principal Diagnosis: "that condition established after study, to be chiefly responsible for occasioning the admission of the patient to the hospital for care." Co-Existing Principal Diagnosis: "when two or more diagnoses equally meet the criteria for principal diagnosis as determined by the circumstances of admission, diagnostic work up, and/or therapy provided, and the Alphabetic Index, Tabular List, or another coding guideline does not provide sequencing direction, any one of the diagnoses may be sequenced first." "When the physician has documented what appears to be a current diagnosis in the body of the record, but has not included the diagnosis in the final diagnostic statement, the physician should be asked whether the diagnosis should be added." (Source Coding [facility] 2 QTR90. p3-4) BERNARD
== END 2024-02-21 14:51 | disposition home or self-care (01) | DRG 62 ==
LOC: ED 13:23 → 1E 15:53 → SUATTDRO 15:53 → 1E 16:10 → 2W 02-19 00:15